=== PATIENT | female | born 1940 | race Caucasian/White ===

== ENCOUNTER 2024-11-19 17:00 | Inpatient (IN) | payer MEDICARE, MEDICAID ==
[~2024-11-19] VITALS: Ht 154.9 cm; Wt 66.0 kg
[~2024-11-19 17:00] MED LIST: ALEN35TA18 PO; AMLO1TAB22 PO; AMOX875T4 PO; CETI-120 PO; DULO-141 PO; HYDR-4798 PO; LIS10T PO; MONT-8 PO; NOR10T GT; OXYB5TAB14 PO; PANT-62 PO; PRAV20TA3 PO; SIMV20TA20 PO; TRIA37.561 PO
--- NOTE | 2024-11-19 17:16 | ED.PDOC ---
HPI Comments 84-year-old female presents here with a pressure-like discomfort. Positive nausea. She states that she was just at the pain management physicians often as for her right wrist and had gotten a cortisone shot. She states she has a little chest pain at that time but when she left the pain got worse. She reports 9/10 chest pain right now. No history of similar type of pain in the past. She does have a history of mitral valve prolapse but states it does not normally cause her discomfort. Denies any radiation to the arm or jaw. Patient has a nonsmoker. History of hypertension. Chief Complaint: Chest Pain Time Seen by MD: 17:10 Primary Care Provider: ALESIA Reviewed Notes: Medications, Allergies Allergies: Coded Allergies: Lisinopril (Verified Allergy, Severe, 06/18/11) Valsartan (Verified Allergy, Severe, 06/18/11) Clonidine (Verified Allergy, 04/16/13) Losartan (Verified Allergy, 04/16/13) Home Meds Reported Medications Simvastatin (Simvastatin) 20 Mg Tab, 20 MG PO DAILY, TAB 04/17/13 Hydrocodone-Acetaminophen ([place] 10/325MG) 1 Tab Tb, 1 TAB GT Q4HP PRN for PRN 04/17/13 Lisinopril (ZESTRIL TABLET) 10 Mg Tb, 10 MG PO DAILY 04/17/13 Hydrochlorothiazide W/Triamter (Dyazide) 1 Cap Cap, 1 CAP PO DAILY, CAP 04/17/13 Information Source: Patient Mode of Arrival: Ambulatory Severity: Moderate Duration: Since onset Prehospital treatment: None Location: Chest (L) Radiation: No Radiation Quality: Pressure Onset: At Rest Cardiac Risk Factors: Hyperlipidemia, HTN PE Risk Factors: None History of: None Modifying Factors: Nothing Associated Signs and Symptoms: N/V Past Medical History PAST MEDICAL HISTORY: Asthma, High Lipids, HTN Surgical History: Appendectomy, Hysterectomy MOLDER History: No Pertinent MOLDER History Family History Family History: No family hx of Heart heron, No family hx of HTN Social History Smoker: Non-Smoker Alcohol: Denies ETOH Use Drugs: Denies Drug Use Lives In: Home Constitutional: denies: chills, diaphoresis, fatigue, fever, malaise, sweats, weakness, others EENTM: denies: blurred vision, double vision, ear bleeding, ear discharge, ear drainage, ear pain, ear ringing, eye pain, eye redness, hearing loss, mouth pain, mouth swelling, nasal discharge, nose bleeding, nose congestion, nose pain, photophobia, tearing, throat pain, throat swelling, voice changes, others Respiratory: denies: cough, hemoptysis, orthopnea, SOB at rest, shortness of breath, SOB with excertion, stridor, wheezing, others Cardiovascular: reports: chest pain; denies: dizzy spells, diaphoresis, Dyspnea on exertion, edema, irregular heart beat, left arm pain, lightheadedness, p alpitations, PND, syncope, others Gastrointestinal: reports: nausea; denies: abdomen distended, abdominal pain, blood streaked bowels, constipated, diarrhea, dysphagia, difficulty swallowing, hematemesis, melena, poor appetite, poor fluid intake, rectal bleeding, rectal pain, vomiting, others Genitourinary: denies: abnormal vagina bleeding, burning, dyspareunia, dysuria, flank pain, frequency, hematuria, incontinence, pain, , vagina di scharge, urgency, others Neurological: denies: dizziness, fainting, headache, left sided numbness, left sided weakness, numbness, paresthesia, pre-existing deficit, right sided numbness, right sided weakness, seizure, speech problems, tingling, tremors, weakness, others Musculoskeletal: denies: back pain, gout, joint pain, joint swelling, muscle pain, muscle stiffness, neck pain, others Integumetry: denies: bruises, change in color, change in hair/nails, dryness, laceration, lesions, lumps, rash, wounds, others Allergic/Immunocompromised: denies: Difficulty Healing, Frequent Infections, Hives, Itching, others Hematologic/Lymphatic: denies: anemia, blood clots, easy bleeding, easy bruising, swollen glands, others Endocrine: denies: excessive hunger, excessive sweating, excessive thirst, excessive urination, flushing, intolerance to cold, intolerance to heat, unexplained weight gain, unexplained weight loss, others Psychiatric: denies: anxiety, bipolar disorder, depression, hopeless, panic disorder, schizophrenia, sleepless, suicidal, others All Other Systems: Reviewed and Negative Physical Exam General Appearance: Moderate Distress HEENT: Normal ENT Inspection, Pharynx Normal, TMs Normal Neck: Full Range of Motion, Non-Tender, Normal, Normal Inspection Respiratory: Chest Non-Tender, Lungs Clear, No Accessory Muscle Use, No Respiratory Distress, Normal Breath Sounds Cardiovascular: No Edema, No JVD, No Murmur, No Gallop, Normal Peripheral Pulses, Regular Rate/Rhythm Breast Exam: Deferred Gastrointestinal: No Organomegaly, Non Tender, No Pulsatile Mass, Normal Bowel Sounds, Soft Genitalia: Deferred Pelvic: Deferred Rectal: Deferred Extremities: No calf tenderness, Normal capillary refill, Normal inspection, Normal range of motion, Non-tender, No pedal edema Musculoskeletal : Apperance: Normal Neurologic: Alert, home care giver II-XII nml as Tested, No Motor Deficits, Normal Affect, Normal Mood, No Sensory Deficits Cerebellar Function: Normal Reflexes: Normal Skin: Dry, Normal Color, Warm Lymphatic: No Adenopathy EKG EKG : Comments Sinus bradycardia rate of 46, ST depressions in V 5 V6 Was a procedure done? Was a procedure done?: No CP Differential Dx Differential Diagnosis: Other Differential Diagnosis: Other Differential Diagnosis: Angina, Aortic dissection, Chest Wall Pain, Cholelithiasis, Myocardial Infarction, Pericarditis, Pneumonia, Pneumothorax, Pulmonary Embolus X-Ray, Labs, Meds, VS Vital Signs Date Time Temp Pulse Resp B/P (MAP) Pulse Ox O2 Delivery O2 Flow Rate FiO2 11/19/24 17:12 46 11/19/24 17:09 98.1 50 16 145/57 95 98.1 Lab Test 11/19/24 17:03 Range/Units White Blood Count Pending Red Blood Count Pending Hemoglobin Pending Hematocrit Pending Mean Corpuscular Volume Pending Mean Corpuscular Hemoglobin Pending Mean Corpuscular Hemoglobin Concent Pending Red Cell Distribution Width Pending Platelet Count Pending Mean Platelet Volume Pending Neutrophils (%) (Auto) Pending Lymphocytes (%) (Auto) Pending Monocytes (%) (Auto) Pending Basophils (%) (Auto) Pending Neutrophils # (Auto) Pending Lymphocytes # (Auto) Pending Monocytes # (Auto) Pending Sodium Level 141 136-145 mmol/L Potassium Level 3.3 L 3.5-5.1 mmol/L Chloride Level 103 98-107 mmol/L Carbon Dioxide Level 26 20-31 mmol/L Anion Gap 12 5-15 Blood Urea Nitrogen 28 H 9-23 mg/dL Creatinine 1.37 H 0.550-1.02 mg/dL Glomerular Filtration Rate Calc 39 >90 mL/min BUN/Creatinine Ratio 20.4 H 10.0-20.0 Serum Glucose 97 74-106 mg/dL Calcium Level 9.6 8.7-10.4 mg/dL Troponin I High Sensitivity 22 </=34 ng/L [facility] [id number] [place] [address] Ph: [phone] DIAGNOSTIC IMAGING Diagnostic Imaging Report : [id number] Signed PATIENT: RAY ASIFCCT: [id number] UNIT: [id number] : 1940 LOC: ER ROOM / BED: / AGE / SEX: 84 / F ADM STATUS: REG ER SERVICE 08 ORDERING PHYSICIAN: JOSEPH ARCOS MD PROCEDURE(s): CXR2 - CHEST TWO VIEWS ROUTINE REASON: Chest pain ORDER NUMBER(s): [id number], ACCESSION NUMBER(s): [id number] CHEST RADIOGRAPH Indication: Chest pain Technique: Frontal and lateral view of the chest was obtained Comparison: None FINDINGS: Lines and Tubes: None Lungs: Clear Pleura: No effusion. No pneumothorax. Cardiomediastinal contours: Unremarkable Bones: Unremarkable IMPRESSION: 1. No evidence of acute disease. ATED BY: NADIA DUBOSE MD DICTATED DATE/TIME: 11/19/241740 SIGNED BY: NADIA DUBOSE MD SIGNED DATE/TIME: 11/19/241740 82-year-old female presents here with chest discomfort that she reports it is pressure-like. She states she had just left the pain management physician's office and although she had did have some pain while at the office, the pain became much worse after she left. Did not declines any similar type of pain. At this time. At this time she appears to be in some distress stating that it is 9/10 pain. I am concerned about acute coronary syndrome. EKG demonstrates some mild ST depressions in the lateral leads. At this time I have ordered a CBC BMP troponin chest x-ray. Patient has been written for aspirin morphine and Zofran IV. At this time she has a high heart score of 6. First set troponin has returned normal. but I am still very concerned, and believe she would benefit from inpatient admission. BMP has returned with evidence of acute kidney injury. Hospitalist team has been contacted. Time of 1ST Reevaluation: 17:40 Reevaluation 1ST: Unchanged Patient Education/Counseling: Diagnosis, Treatment Family Education/Counseling: No Family Present SEPSIS Sepsis Screen Physician Orders Electrocardigram (11/19/24 17:01) Electrocardigram (11/19/24 18:01) Electrocardigram (11/19/24 20:01) Troponin-I Hs (11/19/24 18:01) Troponin-I Hs (11/19/24 20:01) Complete Blood Count (11/19/24 17:09) Chest Two Views Routine (11/19/24 17:09) Nitroglycerin Sublingual (Ntrostat Subli (11/20/24 10:00) Morphine Sulfate Injection (11/19/24 17:30) Vital Signs Date Time Temp Pulse Resp B/P (MAP) Pulse Ox O2 Delivery O2 Flow Rate FiO2 11/19/24 17:12 46 11/19/24 17:09 98.1 50 16 145/57 95 98.1 Laboratory Tests Test 11/19/24 17:03 White Blood Count Pending Departure 1 Departure Time of Disposition: 17:31 Impression: Primary Impression: Chest pain Qualified Codes: R07.9 - Chest pain, unspecified Additional Impression: Acute kidney injury Disposition: ADMITTED INPATIENT Condition: Serious Critical Care Note Critical Care Time?: No Stability Stability form required: No Heart Score Heart Score: Heart Score Response (Comments) Value History Highly Suspicious 2 EKG Repolarization Disturb 1 Age >65 2 Risk Factors 1 or 2 risk factors 1 Troponin Normal limit 0 Total 6 I personally scribed for JOSEPH ARCOS MD ([email or web address]) on 11/19/24 at 17:16. Electronically submitted by Love Malcolm ([email or web address]). I personally scribed for JOSEPH ARCOS MD ([email or web address]) on 11/19/24 at 17:47. Electronically submitted by Love Malcolm ([email or web address]). JOSEPH ARCOS MD Nov 19, 2024 17:16
[2024-11-19 17:24] LABS: Chloride 103 mmol/L (98-107); Sodium 141 mmol/L (136-145)
[2024-11-19 17:25] LABS: Anion Gap 12 (5-15); Carbon Dioxide 26 mmol/L (20-31)
[2024-11-19 17:26] LABS: Calcium 9.6 mg/dL (8.7-10.4)
[2024-11-19 17:27] LABS: Potassium 3.3 mmol/L (3.5-5.1)
[2024-11-19 17:30] LABS: BUN/Creatinine Ratio 20.4 (10.0-20.0); Glucose 97 mg/dL (74-106)
[2024-11-19] MEDS: ONDANSETRON HCL 4 MG/2 ML VIAL IV ONE (17:30)
[2024-11-19 17:34] LABS: Blood Urea Nitrogen 28 mg/dL (9-23)
--- NOTE | 2024-11-19 17:43 | DVH ---
CHEST RADIOGRAPH Indication: Chest pain Technique: Frontal and lateral view of the chest was obtained Comparison: None FINDINGS: Lines and Tubes: None Lungs: Clear Pleura: No effusion. No pneumothorax. Cardiomediastinal contours: Unremarkable Bones: Unremarkable IMPRESSION: 1. No evidence of acute disease.
[2024-11-19 17:54] LABS: Hematocrit 38.1 % (36.0-46.0); Hemoglobin 12.9 g/dL (12.2-16.2); Mean Corpuscular Hemoglobin 29.9 pg (28.0-32.0); Mean Corpuscular Volume 87.8 fL (80.0-100.0); Nucleated Red Blood Cells % 0.0 %
--- NOTE | 2024-11-19 18:18 | ECG ---
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
[2024-11-19 18:55] VITALS: PULSE 59; RESP 13; O2SAT 99
[2024-11-19 19:55] VITALS: RESP 18; O2SAT 99
[2024-11-19] MEDS: ONDANSETRON HCL 4 MG/2 ML VIAL IV PRN (20:23)
[2024-11-19] MEDS: MORPHINE SULFATE INJ 2 MG/ml SYRG IV PRN (20:23)
--- NOTE | 2024-11-19 20:44 | ECG ---
[facility] Test Date: 2024-11-19 Test Time: 19:56:40 Pat Name: CHRISTY ASIF Department: Room: 0277T Gender: F Parish Nurse: GRISEL : 1940 Requested By: EMERGENCY EMERGENCY Order Number: [id number] Reading MD: Rober Hudson Measurements Intervals [place] Rate: 61 P: 74 GA: 164 QRS: 37 QRSD: 116 T: 55 QT: 457 QTc: 461 Interpretive Statements Sinus rhythm Ventricular premature complex Nonspecific intraventricular conduction delay Anterior infarct, old Electronically Signed On 11-22-2024 18:49:13 PDT by Rober Hudson Please click the below link to view image of tracing.
[2024-11-19] MEDS ORDERED: NITROGLYCERIN 0.4 MG SL TAB SL PRN (22:30)
[2024-11-19] MEDS ORDERED: hydrALAZINE HCL 20 MG/ML VL IV PRN (22:30)
--- NOTE | 2024-11-19 22:33 | DVHHP2 ---
History of Present Illness Reason for Visit: Chest pain, unspecified History of Present Illness The patient is a 84-year-old female with past medical history of asthma, hyperlipidemia, and hypertension who presented to [facility] ED with complaint of chest pain. Patient reports symptoms progressively get worse with substernal chest pain, rating pain 9/10 numeric scale, associated with nausea. She states that she was just at the pain management physicians often as for her right wrist and had gotten a cortisone shot. Patient was seen and evaluated in the ED, laboratory data shows WBC 7.5, platelets 229, sodium 141, potassium 3.3, BUN 28, creatinine 1.37, glucose 97, calcium 9.6, troponin 1279, blood pressure 156/72, heart rate 62, temperature 98.9 F, O2 saturation 99% on room air. Chest x-ray show no evidence of acute disease. Please see medication orders section in the computer. On my assessment, patient denied chest pain at this moment, no headache, no dizziness, no diaphoresis, no shortness of breaths, no nausea, no vomiting, no fever, no chills. Patient was admitted for further evaluation and medical management. Past Medical History Asthma, High Lipids, HTN Past Surgical History Appendectomy, Hysterectomy Family History Reviewed, noncontributory to the management of this case. Past Social History The patient lives at home, denies smoking, alcohol or illicit drugs abuse. Review of Systems Constitutional: Yes: Weakness; No: Fever, Chills, Sweats, Malaise, Other Eyes: No: Pain, Vision change, Conjunctivae inflammation, Eyelid inflammation, Other, Redness ENT: No: Ear pain, Ear discharge, Nose pain, Nose discharge, Nose congestion, Mouth pain, Mouth swelling, Throat pain, Throat swelling, Other Respiratory: No: Cough, Dry, Shortness of breath, SOB with excertion, Wheezing, Hemoptysis, Pleuritic Pain, Sputum, Wheezing, Other Cardiovascular: Chest Pain; No: Palpitations, Orthopnea, Paroxysmal Noc. Dyspnea, Edema, Lt Headedness, Other Gastrointestinal: Nausea; No: Vomiting, Abdominal Pain, Diarrhea, Constipation, Melena, Hematochezia, Other Genitourinary: No Dysuria, No Frequency, No Incontinence, No Hematuria, No Retention, No Other Musculoskeletal: No: other, neck pain, shoulder pain, arm pain, back pain, hand pain, leg pain, foot pain Skin: No: Rash, Lesions, Jaundice, Bruising, Other Neurological: No: Weakness, Numbness, Incoordination, Change in speech, Confusion, Seizures, Other Allergies: Coded Allergies: Lisinopril (Verified Allergy, Severe, 06/18/11) Valsartan (Verified Allergy, Severe, 06/18/11) Clonidine (Verified Allergy, 04/16/13) Losartan (Verified Allergy, 04/16/13) Medications Current Medications Medications Dose Ordered Sig/Aparna Route Start Time Stop Time Status Last Admin Dose Admin Morphine Sulfate 2 mg Q4HPRN PRN IV 11/19/24 17:30 Morphine Sulfate 2 mg Q30MIN PRN IV 11/19/24 20:15 11/19/24 20:23 2 MG Ondansetron HCl 4 mg Q6HP PRN IV 11/19/24 20:15 11/19/24 20:23 4 MG Atorvastatin Calcium 20 mg HS PO 11/20/24 22:00 UNV Amlodipine Besylate 5 mg DAILY PO 11/20/24 10:00 UNV Hydralazine HCl 10 mg Q6HP PRN IV 11/19/24 22:30 UNV Aspirin 81 mg DAILY PO 11/20/24 10:00 UNV Sodium Chloride 10 ml Q8HR IV 11/20/24 06:00 UNV Acetaminophen/ Hydrocodone Bitart 1 tab Q4HP PRN PO 11/19/24 22:30 UNV Docusate Sodium 100 mg BIDPRN PRN PO 11/19/24 22:30 UNV Acetaminophen 650 mg Q6HP PRN PO 11/19/24 22:30 UNV Nitroglycerin 0.4 mg Q5MINP PRN SL 11/19/24 22:30 UNV Exam Vital Signs Vital Signs Date Time Temp Pulse Resp B/P (MAP) Pulse Ox O2 Delivery O2 Flow Rate FiO2 11/19/24 22:24 111 18 136/98 11/19/24 18:55 99 Room Air* 0 21 11/19/24 18:55 98.9 98.9 General Appearance: Alert, Oriented X3, Cooperative, No acute distress HEENT: Atraumatic, PERRLA, EOMI, Mucous membr. moist/pink Respiratory: Normal air movement Cardiovascular: Regular rate, Normal S1, Normal S2, No murmurs Abdominal: Normal bowel sounds, Soft, No tenderness, No hepatospenomegaly, No masses Extremities: No clubbing, No cyanosis, No edema, Normal pulses, No tenderness/swelling Skin: No rashes, No significant lesion Neuro: Normal speech, Normal tone, Sensation intact, Cranial nerves 3-12 NL, Reflexes 2+, Other (Generalized weakness) Psych/Mental Status: Mental status NL, Mood NL Labs/Xrays Labs Test 11/19/24 19:49 11/19/24 17:03 Range/Units Troponin I High Sensitivity 1279 *H </=34 ng/L White Blood Count 7.5 4.4-10.8 10^3/uL Red Blood Count 4.33 4.0-5.20 10^6/uL Hemoglobin 12.9 12.2-16.2 g/dL Hematocrit 38.1 36.0-46.0 % Mean Corpuscular Volume 87.8 80.0-100.0 fL Mean Corpuscular Hemoglobin 29.9 28.0-32.0 pg Mean Corpuscular Hemoglobin Concent 34.0 32.0-36.0 g/dL Red Cell Distribution Width 13.0 11.8-14.3 % Platelet Count 229 140-450 10^3/uL Mean Platelet Volume 7.7 6.9-10.8 fL Neutrophils (%) (Auto) 46.9 37.0-80.0 % Lymphocytes (%) (Auto) 42.2 10.0-50.0 % Monocytes (%) (Auto) 7.7 0.0-12.0 % Eosinophils (%) (Auto) 2.8 0.0-7.0 % Basophils (%) (Auto) 0.4 0.0-2.0 % Neutrophils # (Auto) 3.5 1.6-8.6 10 ^3/uL Lymphocytes # (Auto) 3.2 0.4-5.4 10 ^3/uL Monocytes # (Auto) 0.6 0-1.3 10 ^3/uL Eosinophils # (Auto) 0.2 0-0.8 10 ^3/uL Basophils # (Auto) 0 0-0.2 10 ^3/uL Nucleated Red Blood Cells 0.0 % Sodium Level 141 136-145 mmol/L Potassium Level 3.3 L 3.5-5.1 mmol/L Chloride Level 103 98-107 mmol/L Carbon Dioxide Level 26 20-31 mmol/L Anion Gap 12 5-15 Blood Urea Nitrogen 28 H 9-23 mg/dL Creatinine 1.37 H 0.550-1.02 mg/dL Glomerular Filtration Rate Calc 39 >90 mL/min BUN/Creatinine Ratio 20.4 H 10.0-20.0 Serum Glucose 97 74-106 mg/dL Calcium Level 9.6 8.7-10.4 mg/dL PATIENT: RAY ASIFCCT: [id number] UNIT: [id number] : 1940 LOC: ER ROOM / BED: / AGE / SEX: 84 / F ADM STATUS: REG ER SERVICE 08 ORDERING PHYSICIAN: JOSEPH ARCOS MD PROCEDURE(s): CXR2 - CHEST TWO VIEWS ROUTINE REASON: Chest pain ORDER NUMBER(s): [id number], ACCESSION NUMBER(s): [id number] CHEST RADIOGRAPH Indication: Chest pain Technique: Frontal and lateral view of the chest was obtained Comparison: None FINDINGS: Lines and Tubes: None Lungs: Clear Pleura: No effusion. No pneumothorax. Cardiomediastinal contours: Unremarkable Bones: Unremarkable IMPRESSION: 1. No evidence of acute disease. SEPSIS Sepsis Screen Date sepsis recognized/suspect: Nov 19, 2024 Time Sepsis recognized/suspect: 1854 Recent Procedure: No On Antibiotic Therapy: No Respiratory Rate >20: No Heart Rate >90: No Temp<36 C (96.8 F) or >38.3 C: No SBP <90 or MAP <65 mmHG: No New Acute Mental Status Change: No Is the patient on CPAP, BIPAP,: No Physician Orders Electrocardigram (11/19/24 20:01) Chest Two Views Routine (11/19/24 17:09) Nitroglycerin Sublingual (Ntrostat Subli (11/20/24 10:00) Morphine Sulfate Injection (11/19/24 17:30) Morphine Sulfate Injection (11/19/24 20:15) Ondansetron Hcl (Zofran) (11/19/24 20:15) Atorvastatin (Lipitor) (11/20/24 22:00) Amlodipine Tablet (Norvasc Tablet) (11/20/24 10:00) Hydralazine Injection (Apresoline Inject (11/19/24 22:30) Aspirin Tablet (11/20/24 10:00) Admit (11/19/24:) Allergies (11/19/24:) Code Status (11/19/24:) Sodium Chloride Lock (Saline Lock Ns) (11/20/24 06:00) Oxygen Per Hour (11/19/24:) Hydrocodone-Acet 5/325mg Tab ([place] 5/32 (11/19/24 22:30) Docusate Sodium Capsule (Colace Capsule) (11/19/24 22:30) Fall Risk Precautions In Place QSHIFT (11/19/24:) Complete Blood Count (11/20/24 04:00) Comprehensive Metabolic Panel (11/20/24 04:00) Cardiac Diet-2gna,Lofat,Lochol (11/20/24 Breakfast) Condition: Serious (11/19/24:) Acetaminophen Tablet (Tylenol Tablet) (11/19/24 22:30) Maintain Bed Rest (11/19/24:) Sequential Compression Device (11/19/24 ) Nitroglycerin Sublingual (Ntrostat Subli (11/19/24:30) Stat Ekg For Chest Pain (11/19/24:) Notify Of Changes From Base (11/19/24:) Syrup Machine Laborer For 24 Hours (11/19/24:) Emergency Dysrhythmia Protocol (11/19/24:) Rhythm Strips Once Every Shift (11/19/24:) Oxygen By Nasal Cannula (11/19/24:) Vital Signs Date Time Temp Pulse Resp B/P (MAP) Pulse Ox O2 Delivery O2 Flow Rate FiO2 11/19/24 22:24 111 18 136/98 11/19/24 20:23 62 18 156/72 11/19/24 20:10 59 11/19/24 19:56 61 11/19/24 18:55 59 13 99 Room Air* 0 21 11/19/24 18:55 98.9 59 13 146/56 (86) 99 98.9 11/19/24 18:20 53 11/19/24 17:12 46 11/19/24 17:09 98.1 50 16 145/57 95 98.1 Laboratory Tests Test 11/19/24 17:03 White Blood Count 7.5 10^3/uL (4.4-10.8) Medications Medications Dose Ordered Sig/Aparna Route Start Time Stop Time Status Last Admin Dose Admin Aspirin 162 mg ONCE ONCE PO 11/19/24 17:15 11/19/24 17:16 DC 11/19/24 18:30 162 MG Morphine Sulfate 2 mg Q30MIN PRN IV 11/19/24 20:15 11/19/24 20:23 2 MG Ondansetron HCl 4 mg ONCE ONCE IV 11/19/24 17:30 11/19/24 17:31 DC 11/19/24 17:30 4 MG Ondansetron HCl 4 mg Q6HP PRN IV 11/19/24 20:15 11/19/24 20:23 4 MG Assessment/Plan Assessment/Plan Chest pain, unspecified Hypokalemia Chest pain Generalized weakness Acute kidney injury NSTEMI non ST elevated myocardial infarction Plan 1. Admit to telemetry unit 2. Breathing treatment 3. Pain control management 4. Management of fluids and electrolytes 5. Consultation for Cardiology 6. Diagnostic tests chest x-ray 7. DVT prophylaxis-on aspirin 8. Repeat labs CBC, CMP in a.m. 9. Continue with current medical management 10. Treatment plan discussed with patient and RN. Patient verbalized understanding. Plan discussed with: Patient, Other (RN) My Orders Orders - FIDELIA QUINTANILLA DNP Procedure Category Date Status Time Atorvastatin (Lipitor) PHA 11/20/24 Logged 22:00 Amlodipine Tablet PHA 11/20/24 Logged (Norvasc Tablet) 10:00 Hydralazine Injection PHA 11/19/24 Logged (Apresoline Inject 22:30 Aspirin Tablet PHA 11/20/24 Logged 10:00 Admit ADMIT 11/19/24 Transmitted 22:25 Allergies JACIEL 11/19/24 In Process 22:25 Code Status CODE 11/19/24 Transmitted 22:25 Sodium Chloride Lock PHA 11/20/24 Logged (Saline Lock Ns) 06:00 Oxygen Per Hour RT 11/19/24 Transmitted 22:25 Hydrocodone-Acet PHA 11/19/24 Logged 5/325mg Tab ([place] 22:30 Docusate Sodium PHA 11/19/24 Logged Capsule (Colace 22:30 Fall Risk Precautions [facility] 11/19/[address] 22:25 Complete Blood Count LAB 11/20/24 Verified 04:00 Comprehensive LAB 11/20/24 Verified Metabolic Panel 04:00 Cardiac DIET 11/20/24 Transmitted Diet-2gna,Lofat,Lochol Breakfast Condition: Serious [facility] 11/19/24 In Process 22:25 Acetaminophen Tablet [facility] 11/19/24 Logged (Tylenol Tablet) 22:30 Maintain Bed Rest [facility] 11/19/24 In Process 22:25 Sequential [facility] 11/19/24 In Process Compression Device Nitroglycerin [facility] 11/19/24 Logged Sublingual (Ntrostat 22:30 Stat Ekg For Chest [facility] 11/19/24 In Process Pain 22:25 Notify Of Changes [facility] 11/19/24 In Process From Base 22:25 Syrup Machine Laborer For [facility] 11/19/24 In Process 24 Hours 22:25 Emergency Dysrhythmia [facility] 11/19/24 In Process Protocol 22:25 Rhythm Strips Once [facility] 11/19/24 In Process Every Shift 22:25 Oxygen By Nasal RT 11/19/24 Transmitted Cannula 22:25 Problem List: (1) Chest pain, unspecified (2) Hypokalemia (3) Chest pain (4) Generalized weakness (5) Acute kidney injury (6) NSTEMI (non-ST elevated myocardial infarction) Date of Service: Nov 19, 2024 Billing Provider: FIDELIA QUINTANILLA DNP Common Visit Codes: 29358-[id number] INP/OBS CARE (HIGH) FIDELIA QUINTANILLA DNP Nov 19, 2024 22:33
[2024-11-20] VITALS (9 sets, daily range): BP systolic 112–152; BP diastolic 55–70; PULSE 52–67; RESP 16–18; TEMP 96.6–98.1; O2SAT 93–97
[2024-11-20] MEDS: POTASSIUM CHL 20 Meq TABLET PO ONE (00:12)
[2024-11-20] MEDS: HYDROcodone-ACET 5/325MG TAB PO PRN (00:38)
[2024-11-20 03:46] LABS: Hematocrit 39.4 % (36.0-46.0); Hemoglobin 13.5 g/dL (12.2-16.2); Mean Corpuscular Hemoglobin 29.6 pg (28.0-32.0); Mean Corpuscular Volume 86.8 fL (80.0-100.0); Nucleated Red Blood Cells % 0.0 %
[2024-11-20 04:06] LABS: Alanine Aminotransferase 16 U/L (7-40); Albumin 4.8 g/dL (3.2-4.8); Alkaline Phosphatase 87 U/L (46-116); Anion Gap 12 (5-15); BUN/Creatinine Ratio 18.5 (10.0-20.0); Bilirubin, Total 0.7 mg/dL (0.2-1.0); Calcium 9.4 mg/dL (8.7-10.4); Carbon Dioxide 25 mmol/L (20-31); Chloride 102 mmol/L (98-107); Potassium 4.3 mmol/L (3.5-5.1); Sodium 139 mmol/L (136-145); Total Protein 7.3 g/dL (5.7-8.2)
[2024-11-20 04:07] LABS: Blood Urea Nitrogen 25 mg/dL (9-23); Glucose 130 mg/dL (74-106)
[2024-11-20] MEDS: SODIUM CHLOR 0.9% PF (SALINE LOCK) 10ML VIAL/SYR IV SCH (05:40)
[2024-11-20] MEDS: MORPHINE SULFATE 4 MG/ML SYR/VIAL IV PRN (05:40)
[2024-11-20] MEDS ORDERED: SODIUM CHLORIDE 0.9% 1,000 ML IV SCH (08:30)
--- NOTE | 2024-11-20 09:05 | CONS ---
Pharmacy Clinical Information: NEW HEPARIN DRIP BASELINE PTT ACTIVE BOLUS 4000 UNITS X 1 INITIAL RATE 700 UNITS/HR (7 ML/HR) NEXT SCHEDULED PTT 11/20 @1500 COMMUNICATED WITH RN CLAUDIA SPENCER PHARMACIST Nov 20, 2024 09:05
--- NOTE | 2024-11-20 09:33 | DVHINCON2 ---
Date of service: Nov 20, 2024 History of Present Illness HPI Patient is a 84-year-old female who presented to the hospital with chest discomfort. She mentions that she was at the pain management and when driving back home started to feel chest discomfort. Later she decided to come to the hospital. Cardiology is involved for cardiac aspects of care. Patient is known to our practice from outside. Home Meds Reported Medications Simvastatin (Simvastatin) 20 Mg Tab, 20 MG PO DAILY, TAB 04/17/13 Hydrocodone-Acetaminophen ([place] 10/325MG) 1 Tab Tb, 1 TAB GT Q4HP PRN for PRN 04/17/13 Lisinopril (ZESTRIL TABLET) 10 Mg Tb, 10 MG PO DAILY 04/17/13 Hydrochlorothiazide W/Triamter (Dyazide) 1 Cap Cap, 1 CAP PO DAILY, CAP 04/17/13 Past Medical History Others Past medical history includes hypertension, hyperlipidemia, asthma, neuropathy, history of mild mitral valve prolapse, CKD, status post right hip replacement and history of lumbar stenosis. Drugs: None Review of Systems Constitutional: No symptom reported Pulmonary/Respiratory: Dyspnea Cardiovascular: Chest Pain All Other Systems Fourteen point review of system was performed. Relevant findings as per above and as per HPI. Otherwise negative. H&P Exam Vital Signs Vital Signs Date Time Temp Pulse Resp B/P (MAP) Pulse Ox O2 Delivery O2 Flow Rate FiO2 11/20/24 06:22 78 16 134/77 11/20/24 04:56 97.9 97 97.9 11/20/24 02:17 Room Air* 0 21 Labs/Xrays Labs Test 11/20/24 02:48 Range/Units White Blood Count 7.3 4.4-10.8 10^3/uL Red Blood Count 4.54 4.0-5.20 10^6/uL Hemoglobin 13.5 12.2-16.2 g/dL Hematocrit 39.4 36.0-46.0 % Mean Corpuscular Volume 86.8 80.0-100.0 fL Mean Corpuscular Hemoglobin 29.6 28.0-32.0 pg Mean Corpuscular Hemoglobin Concent 34.2 32.0-36.0 g/dL Red Cell Distribution Width 13.0 11.8-14.3 % Platelet Count 213 140-450 10^3/uL Mean Platelet Volume 7.9 6.9-10.8 fL Neutrophils (%) (Auto) 83.3 H 37.0-80.0 % Lymphocytes (%) (Auto) 14.1 10.0-50.0 % Monocytes (%) (Auto) 2.4 0.0-12.0 % Eosinophils (%) (Auto) 0.0 0.0-7.0 % Basophils (%) (Auto) 0.2 0.0-2.0 % Neutrophils # (Auto) 6.1 1.6-8.6 10 ^3/uL Lymphocytes # (Auto) 1.0 0.4-5.4 10 ^3/uL Monocytes # (Auto) 0.2 0-1.3 10 ^3/uL Eosinophils # (Auto) 0 0-0.8 10 ^3/uL Basophils # (Auto) 0 0-0.2 10 ^3/uL Nucleated Red Blood Cells 0.0 % Sodium Level 139 136-145 mmol/L Potassium Level 4.3 3.5-5.1 mmol/L Chloride Level 102 98-107 mmol/L Carbon Dioxide Level 25 20-31 mmol/L Anion Gap 12 5-15 Blood Urea Nitrogen 25 H 9-23 mg/dL Creatinine 1.35 H 0.550-1.02 mg/dL Glomerular Filtration Rate Calc 39 >90 mL/min BUN/Creatinine Ratio 18.5 10.0-20.0 Serum Glucose 130 H 74-106 mg/dL Calcium Level 9.4 8.7-10.4 mg/dL Total Bilirubin 0.7 0.2-1.0 mg/dL Aspartate Amino Transferase (AST) 25 13-40 U/L Alanine Aminotransferase (ALT) 16 7-40 U/L Alkaline Phosphatase 87 46-116 U/L Troponin I High Sensitivity 2931 *H </=34 ng/L Total Protein 7.3 5.7-8.2 g/dL Albumin 4.8 3.2-4.8 g/dL Assessment/Plan Plan Patient is a 84-year-old female who presented to the hospital with chest discomfort. She mentions that she was at the pain management and when driving back home started to feel chest discomfort. Later she decided to come to the hospital. Cardiology is involved for cardiac aspects of care. Patient is known to our practice from outside. Not in acute distress. No JVD. Mucosa is pink and wet. No carotid bruit. Scattered rhonchi in the lungs is heard. Not using accessory muscles of breathing. Cardiac: Regular, no thrill/gallop. Abdomen is soft. Bowel sound is positive. No tenderness. Extremities do not reveal edema. Dorsalis pedis 2+ bilateral Past medical history includes hypertension, hyperlipidemia, asthma, neuropathy, history of mild mitral valve prolapse, CKD, status post right hip replacement and history of lumbar stenosis. Nuclear stress test (performed in the office) in February 2024 revealed scar. Echocardiogram (performed in the office) of December 2023 had revealed preserved ejection fraction with questionable mild mitral valve prolapse and [id number] mitral regurgitation Creatinine: 1.37 - 1.35 Potassium: 3.3 - 4.3 Troponin (high sensitive): 22 - 23- 6376 - 0038 - 8976 - 4484 Chest x-ray revealed: IMPRESSION: 1. No evidence of acute disease. EKG revealed sinus rhythm with old anterior NV Patient is a 84-year-old female who presented with chest discomfort. Troponin has been increasing. Diagnosis and non-STEMI. Chest pain Non-STEMI Hypertension Hyperlipidemia CKD Cardiac suggestion for management: Managed on telemetry Follow-up electrolytes and kidney function tests and correct abnormalities Load with 324 mg of aspirin. Continue with 81 mg daily Heparin drip Lipitor Echocardiogram Cardiac catheterization was offered to the patient. If clinically stable we will proceed with cardiac catheterization early next week. May change the ti amisha of the cardiac catheterization pertaining to clinical course Thank you for consultation Further evaluation and management depends on the above and clinical course A total of 75 minutes was spent reviewing the patient record, examining the patient, making a diagnostic and therapeutic plan, discussing this plan with medical personnel, following up on diagnostic studies and following the patient for clinical stability excluding any and all procedures. At least 50% of this time was spent in direct, [id number] contact. Thank you for allowing me to participate in this patient's care. Further recommendations will depend on patient's clinical course. Please do not hesitate to contact me if you have any questions or concerns. This medical document was created using electronic medical record system with [email or web address] dictation system. Although this document has been carefully reviewed, there may still be some phonetic and typographical errors. These areas are purely typographical due to the imperfection of the software programs, and do not reflect any compromise in the patient's medical care. Plan discussed with: Patient, Other (nurse) GAMA FERRO MD Nov 20, 2024 09:33
[2024-11-20] MEDS: NITROGLYCERIN 0.4 MG SL TAB SL ONE (09:37)
[2024-11-20] MEDS: PANTOPRAZOLE 40 MG/10 ML VIAL INJ IV SCH (09:42)
[2024-11-20] MEDS: HEPARIN SODIUM (PORCINE) 5000 UNITS/ML 1ML VIAL IV ONE (09:43)
[2024-11-20] MEDS: SODIUM CHLORIDE 0.9% 1,000 ML IV SCH (09:44)
[2024-11-20] MEDS: ATORVASTATIN 20 MG TAB PO STA (11:04)
[2024-11-20] MEDS: HEPARIN DRIP/D5W 100UNITS/ML 250 ML IV SCH (11:06)
[2024-11-20 11:33] LABS: Triglycerides 38 mg/dL (< 150)
[2024-11-20 11:35] LABS: Cholesterol 196 mg/dL (< 200)
[2024-11-20 11:36] LABS: HDL Cholesterol 65 mg/dL (40-59)
[2024-11-20 11:43] LABS: INR 1.13 (0.9-1.15); Prothrombin Time 11.8 sec (9.3-11.8)
[2024-11-20 11:44] LABS: Partial Thromboplastin Time 138.6 SEC (24.5-34.5)
--- NOTE | 2024-11-20 12:36 | DVHPN2 ---
Changes from previous H/P or p: No Changes Eyes: No Pain, No Vision change, No Conjunctivae inflammation, No Eyelid inflammation, No Other, No Redness ENT: No Ear pain, No Ear discharge, No Nose pain, No Nose discharge, No Nose congestion, No Mouth pain, No Mouth swelling, No Throat pain, No Throat swelling, No Other Cardiovascular: Chest Pain; No Palpitations, No Orthopnea, No Paroxysmal Noc. Dyspnea, No Edema, No Lt Headedness, No Other Respiratory: No Cough, No Dry, No Shortness of breath, No SOB with excertion, No Wheezing, No Hemoptysis, No Pleuritic Pain, No Sputum, No Other Gastrointestinal: Nausea; No Vomiting, No Abdominal Pain, No Diarrhea, No Constipation, No Melena, No Hematochezia, No Other Genitourinary: No Dysuria, No Frequency, No Incontinence, No Hematuria, No Retention, No Other Musculoskeletal: No other, No neck pain, No shoulder pain, No arm pain, No back pain, No hand pain, No leg pain, No foot pain Skin: No Rash, No Lesions, No Jaundice, No Bruising, No Other Objective Vitals Vital Signs Date Time Temp Pulse Resp B/P (MAP) Pulse Ox O2 Delivery O2 Flow Rate FiO2 11/20/24 09:42 117/77 11/20/24 09:00 97.8 67 17 95 97.8 11/20/24 08:00 Room Air* 0 21 Intake/Output Intake and Output 11/20/24 07:00 Intake Total 100 ml Balance 100 ml Intake Oral 100 ml # Voids 1 Medications Current Medications Medications Dose Ordered Sig/Aparna Route Start Time Stop Time Status Last Admin Dose Admin Morphine Sulfate 2 mg Q4HPRN PRN IV 11/19/24 17:30 11/20/24 05:40 2 MG Morphine Sulfate 2 mg Q30MIN PRN IV 11/19/24 20:15 11/19/24 23:47 2 MG Ondansetron HCl 4 mg Q6HP PRN IV 11/19/24 20:15 11/20/24 09:44 4 MG Amlodipine Besylate 5 mg DAILY PO 11/20/24 10:00 11/20/24 09:42 5 MG Hydralazine HCl 10 mg Q6HP PRN IV 11/19/24 22:30 Aspirin 81 mg DAILY PO 11/20/24 10:00 Sodium Chloride 10 ml Q8HR IV 11/20/24 06:00 11/20/24 05:40 10 ML Acetaminophen/ Hydrocodone Bitart 1 tab Q4HP PRN PO 11/19/24 22:30 11/20/24 09:43 1 TAB Docusate Sodium 100 mg BIDPRN PRN PO 11/19/24 22:30 Acetaminophen 650 mg Q6HP PRN PO 11/19/24 22:30 Nitroglycerin 0.4 mg Q5MINP PRN SL 11/19/24 22:30 Heparin Sodium/ Dextrose 250 ml @ 7 mls/hr Q24H IV 11/20/24 08:30 11/20/24 11:06 7 MLS/HR Pantoprazole Sodium 40 mg DAILY IV 11/20/24 10:00 11/20/24 09:42 40 MG Sodium Chloride 1,000 ml @ 100 mls/hr Q10H IV 11/20/24 08:45 11/20/24 09:44 100 MLS/HR Atorvastatin Calcium 80 mg HS PO 11/20/24 22:00 Laboratory Results Laboratory Tests 11/20/24 02:48 Chemistry Test 11/19/24 17:03 11/20/24 02:48 Calcium Level 9.6 mg/dL (8.7-10.4) 9.4 mg/dL (8.7-10.4) Albumin 4.8 g/dL (3.2-4.8) Total Protein 7.3 g/dL (5.7-8.2) Coagulation Test 11/20/24 10:43 Prothrombin Time 11.8 sec (9.3-11.8) Prothrombin Time INR 1.13 (0.9-1.15) Activated Partial Thromboplast Time 138.6 SEC (24.5-34.5) *H Lipid panel Test 11/20/24 10:43 Cholesterol Level 196 mg/dL (< 200) HDL Cholesterol 65 mg/dL (40-59) H Triglycerides Level 38 mg/dL (< 150) LFT Test 11/20/24 02:48 Alanine Aminotransferase (ALT) 16 U/L (7-40) Alkaline Phosphatase 87 U/L (46-116) Aspartate Amino Transferase (AST) 25 U/L (13-40) Total Bilirubin 0.7 mg/dL (0.2-1.0) HgA1c, TSH Test 11/20/24 10:43 Hemoglobin A1c 5.7 % A1C (<5.7) Thyroid Stimulating Hormone (TSH) 0.71 uIU/mL (0.55-4.78) Labs and/or images reviewed: Labs reviewed by me, Image(s) reviewed by me Assessment/Plan Assessment/Plan Acute chest pain rule out coronary artery disease: Heparin drip treatment per ACS protocol Non ST-elevation [place] with troponin 2900: Dr. Le planning for cardiac catheterization Hypokalemia Generalized weakness GRAY PCP Dr. Denny Patient lives with her son Time Spent 70 minutes Advanced care planning time 20 minutes Patient is full code Plan discussed with: Patient Date of Service: Nov 20, 2024 Billing Provider: JOSEPH FREITAS MD Common Visit Codes: [id number] CARE 30-74 MIN JOSEPH FREITAS MD Nov 20, 2024 12:36
[2024-11-20 17:17] LABS: INR 1.05 (0.9-1.15); Partial Thromboplastin Time 57.7 SEC (24.5-34.5); Prothrombin Time 11.1 sec (9.3-11.8)
--- NOTE | 2024-11-20 18:11 | DVHSR ---
APPROVED REPORT EXAM: Two-dimensional and M-mode echocardiogram with Doppler and color Doppler. Blood Pressure: 134/77 mmHg INDICATION NSTEMI RISK FACTORS Height: 5'1", Weight: 132 DIMENSIONS LVDd4.0 (3.8-5.7cm)LA (2D)4.1 (1.9-4.0cm)Aortic Root3.5 (2.0-3.7cm) LVDs2.8 (2.5-4.0cm)LA (MM) (1.9-4.0cm)Aortic Cusp Exc1.9 (1.5-2.0cm) EF (%) 35.0 (55-70%)Rt. Atrium3.7 (1.9-4.0cm)Asc. Aorta cm IVSd1.1 (0.7-1.1cm)RV (D) (1.8-2.4cm) PWd1.0 (0.7-1.1cm) Mitral Valve MitralMitral Stenosis E wave0.84m/sMV Mean GR.mmHg A wave0.98m/sMV Peak GR.mmHg E/A ratio0.92D MVAcm2 DECEL [id number] 1/2 Timems Aortic Valve Aortic ValveAortic Stenosis V10.97m/Marilee Mean GR.4mmHg V21.55m/Marilee Peak GR.10mmHg LVOT Diameter2.0 (1.8-2.4cm)Doppler AVA1.97cm2 AI P 1/2 Hsdq771.65ms Pulmonic Valve V21.12m/s Tricuspid Valve TR Velocity2.68m/s [id number] Other Information Conclusion Left ventricle: Left ventricular systolic function was around 35%. Anterior/anteroseptal/apical hyp okinesia was seen. Compatible with ischemic cardiomyopathy Right ventricle is normal-sized with normal systolic function. Left atrium was mildly dilated. Righ t atrium was normal-sized. Aortic valve was trileaflet. There was no aortic stenosis. There was trace aortic insufficiency. T here was mild mitral regurgitation. There was trace pulmonary valve insufficiency. There was trace tricuspid regurgitation. Right ventricular systolic pressure was assessed normal at 31 mm Hg. IVC was normal-sized with normal respiratory variation. There was no pericardial effusion.
[2024-11-20] MEDS: ATORVASTATIN 20 MG TAB PO SCH (20:25)
[2024-11-20] MEDS ORDERED: ATORVASTATIN 20 MG TAB PO SCH (22:00)
[2024-11-20 23:20] LABS: INR 1.03 (0.9-1.15); Partial Thromboplastin Time 61.2 SEC (24.5-34.5); Prothrombin Time 10.9 sec (9.3-11.8)
[2024-11-21] VITALS (10 sets, daily range): BP systolic 104–161; BP diastolic 55–70; PULSE 47–71; RESP 17–20; TEMP 97.5–98.6; O2SAT 93–99
[2024-11-21 07:05] LABS: INR 1.03 (0.9-1.15); Partial Thromboplastin Time 66.6 SEC (24.5-34.5); Prothrombin Time 10.9 sec (9.3-11.8)
[2024-11-21] MEDS: DOCUSATE SOD 100 MG CAP PO PRN (08:59)
--- NOTE | 2024-11-21 09:16 | ECG ---
[facility] Test Date: 2024-11-20 Test Time: 09:26:19 Pat Name: CHRISTY ASIF Department: Room: [facility]7T A Gender: F Merchandise Coordinator: dena : 1940 Requested By: BANDAR MAURICIO Order Number: [id number] Reading MD: Rober Hudson Measurements Intervals [place] Rate: 64 P: 99 NM: 163 QRS: 21 QRSD: 99 T: 57 QT: 431 QTc: 445 Interpretive Statements Sinus rhythm Multiform ventricular premature complexes Probable anteroseptal infarct, recent Electronically Signed On 11-22-2024 18:27:11 PDT by Rober Hudson Please click the below link to view image of tracing.
--- NOTE | 2024-11-21 09:17 | CONS ---
Pharmacy Clinical Information: HEPARIN DRIP UPDATE aPTT 66.6 NO CHANGE NEXT PTT SCHEDULED 11/22@0500 COMMUNICATED WITH RN CLAUDIA CASTANO PHARMACIST Nov 21, 2024 09:17
--- NOTE | 2024-11-21 12:39 | DVHPN2 ---
Reviewed: Care Plan, H&P, Labs, Medications, Previous Orders, Radiology Changes from previous H/P or p: No Changes Eyes: No Pain, No Vision change, No Conjunctivae inflammation, No Eyelid inflammation, No Other, No Redness ENT: No Ear pain, No Ear discharge, No Nose pain, No Nose discharge, No Nose congestion, No Mouth pain, No Mouth swelling, No Throat pain, No Throat swelling, No Other Cardiovascular: Chest Pain; No Palpitations, No Orthopnea, No Paroxysmal Noc. Dyspnea, No Edema, No Lt Headedness, No Other Respiratory: No Cough, No Dry, No Shortness of breath, No SOB with excertion, No Wheezing, No Hemoptysis, No Pleuritic Pain, No Sputum, No Other Gastrointestinal: Nausea; No Vomiting, No Abdominal Pain, No Diarrhea, No Constipation, No Melena, No Hematochezia, No Other Genitourinary: No Dysuria, No Frequency, No Incontinence, No Hematuria, No Retention, No Other Musculoskeletal: No other, No neck pain, No shoulder pain, No arm pain, No back pain, No hand pain, No leg pain, No foot pain Skin: No Rash, No Lesions, No Jaundice, No Bruising, No Other Objective Vitals Vital Signs Date Time Temp Pulse Resp B/P (MAP) Pulse Ox O2 Delivery O2 Flow Rate FiO2 11/21/24 12:21 98.6 60 18 153/68 (96) 99 98.6 11/21/24 08:00 Room Air* 0 21 Intake/Output Intake and Output 11/21/24 07:00 Intake Total 1330 ml Balance 1330 ml Intake Oral 1330 ml # Voids 7 Medications Current Medications Medications Dose Ordered Sig/Aparna Route Start Time Stop Time Status Last Admin Dose Admin Morphine Sulfate 2 mg Q4HPRN PRN IV 11/19/24 17:30 11/20/24 05:40 2 MG Morphine Sulfate 2 mg Q30MIN PRN IV 11/19/24 20:15 11/19/24 23:47 2 MG Ondansetron HCl 4 mg Q6HP PRN IV 11/19/24 20:15 11/20/24 09:44 4 MG Amlodipine Besylate 5 mg DAILY PO 11/20/24 10:00 11/21/24 08:47 5 MG Hydralazine HCl 10 mg Q6HP PRN IV 11/19/24 22:30 Aspirin 81 mg DAILY PO 11/20/24 10:00 11/21/24 08:47 81 MG Sodium Chloride 10 ml Q8HR IV 11/20/24 06:00 11/21/24 06:26 10 ML Acetaminophen/ Hydrocodone Bitart 1 tab Q4HP PRN PO 11/19/24 22:30 11/21/24 12:26 1 TAB Docusate Sodium 100 mg BIDPRN PRN PO 11/19/24 22:30 11/21/24 08:59 100 MG Acetaminophen 650 mg Q6HP PRN PO 11/19/24 22:30 Nitroglycerin 0.4 mg Q5MINP PRN SL 11/19/24 22:30 Heparin Sodium/ Dextrose 250 ml @ 7 mls/hr Q24H IV 11/20/24 08:30 11/21/24 08:34 7 MLS/HR Pantoprazole Sodium 40 mg DAILY IV 11/20/24 10:00 11/21/24 08:37 40 MG Sodium Chloride 1,000 ml @ 100 mls/hr Q10H IV 11/20/24 08:45 11/21/24 04:19 100 MLS/HR Atorvastatin Calcium 80 mg HS PO 11/20/24 22:00 11/20/24 20:25 80 MG Laboratory Results Laboratory Tests 11/20/24 02:48 Coagulation Test 11/20/24 16:45 11/20/24 22:57 11/21/24 05:54 Prothrombin Time 11.1 sec (9.3-11.8) 10.9 sec (9.3-11.8) 10.9 sec (9.3-11.8) Prothrombin Time INR 1.05 (0.9-1.15) 1.03 (0.9-1.15) 1.03 (0.9-1.15) Activated Partial Thromboplast Time 57.7 SEC (24.5-34.5) H 61.2 SEC (24.5-34.5) H 66.6 SEC (24.5-34.5) H Labs and/or images reviewed: Labs reviewed by me, Image(s) reviewed by me Assessment/Plan Assessment/Plan Acute chest pain rule out coronary artery disease: Heparin drip treatment per ACS protocol Non ST-elevation [place] with troponin 2900: Dr. Le planning for cardiac catheterization Hypokalemia Generalized weakness GRAY PCP Dr. Denny Patient lives with her son Time Spent 55 minutes Advanced care planning time 20 minutes Patient is full code Plan discussed with: Patient Date of Service: Nov 21, 2024 Billing Provider: JOSEPH FREITAS MD Common Visit Codes: [id number] INP/OBS CARE(HIGH) JOSEPH FREITAS MD Nov 21, 2024 12:39
--- NOTE | 2024-11-21 16:24 | DVHPN2 ---
Progress Note - Dictate Date Seen: Nov 21, 2024 Medical Necessity Reason Pt with a Central, PICC or Fol: No vital signs Vital Sign Date Time Temp Pulse Resp B/P (MAP) Pulse Ox O2 Delivery O2 Flow Rate FiO2 11/21/24 12:21 98.6 60 18 153/68 (96) 99 98.6 11/21/24 08:00 Room Air* 0 21 Total Intake and Output 11/20/24 11/20/24 11/21/24 15:00 23:00 07:00 Intake Total 600 ml 730 ml Balance 600 ml 730 ml medications Current Medications Medications Dose Ordered Sig/Aparna Route Start Time Stop Time Status Last Admin Dose Admin Morphine Sulfate 2 mg Q4HPRN PRN IV 11/19/24 17:30 11/20/24 05:40 2 MG Morphine Sulfate 2 mg Q30MIN PRN IV 11/19/24 20:15 11/19/24 23:47 2 MG Ondansetron HCl 4 mg Q6HP PRN IV 11/19/24 20:15 11/20/24 09:44 4 MG Amlodipine Besylate 5 mg DAILY PO 11/20/24 10:00 11/21/24 08:47 5 MG Hydralazine HCl 10 mg Q6HP PRN IV 11/19/24 22:30 Aspirin 81 mg DAILY PO 11/20/24 10:00 11/21/24 08:47 81 MG Sodium Chloride 10 ml Q8HR IV 11/20/24 06:00 11/21/24 14:23 10 ML Docusate Sodium 100 mg BIDPRN PRN PO 11/19/24 22:30 11/21/24 08:59 100 MG Acetaminophen 650 mg Q6HP PRN PO 11/19/24 22:30 Nitroglycerin 0.4 mg Q5MINP PRN SL 11/19/24 22:30 Heparin Sodium/ Dextrose 250 ml @ 7 mls/hr Q24H IV 11/20/24 08:30 11/21/24 08:34 7 MLS/HR Pantoprazole Sodium 40 mg DAILY IV 11/20/24 10:00 11/21/24 08:37 40 MG Sodium Chloride 1,000 ml @ 100 mls/hr Q10H IV 11/20/24 08:45 11/21/24 04:19 100 MLS/HR Atorvastatin Calcium 80 mg HS PO 11/20/24 22:00 11/20/24 20:25 80 MG Acetaminophen/ Hydrocodone Bitart 1 tab Q6HP PRN PO 11/21/24 12:45 laboratory and microbiology Laboratory Tests 11/20/24 02:48 Test 11/20/24 02:48 Range/Units Serum Glucose 130 H 74-106 mg/dL Assessment/Plan Patient is a 84-year-old female who presented to the hospital with chest discomfort. She mentions that she was at the pain management and when driving back home started to feel chest discomfort. Later she decided to come to the hospital. Cardiology is involved for cardiac aspects of care. Patient is known to our practice from outside. Not in acute distress. No JVD. Mucosa is pink and wet. No carotid bruit. Scattered rhonchi in the lungs is heard. Not using accessory muscles of breathing. Cardiac: Regular, no thrill/gallop. Abdomen is soft. Bowel sound is positive. No tenderness. Extremities do not reveal edema. Dorsalis pedis 2+ bilateral Past medical history includes hypertension, hyperlipidemia, asthma, neuropathy, history of mild mitral valve prolapse, CKD, status post right hip replacement and history of lumbar stenosis. Nuclear stress test (performed in the office) in February 2024 revealed scar. Echocardiogram (performed in the office) of December 2023 had revealed preserved ejection fraction with questionable mild mitral valve prolapse and [id number] mitral regurgitation Creatinine: 1.37 - 1.35 Potassium: 3.3 - 4.3 Troponin (high sensitive): 22 - 97- 1279 - 2791 - 2877 - 2931 TSH: 0.71 Chest x-ray revealed: IMPRESSION: 1. No evidence of acute disease. EKG revealed sinus rhythm with old anterior SD Echocardiogram revealed: Left ventricle: Left ventricular systolic function was around 35%. Anterior/anteroseptal/apical hypokinesia was seen. Compatible with ischemic cardiomyopathy. Right ventricle is normal-sized with normal systolic function. Left atrium was mildly dilated. Right atrium was normal-sized. Aortic valve was trileaflet. There was no aortic stenosis. There was trace aortic insufficiency. There was mild mitral regurgitation. There was trace pulmonary valve insufficiency. There was trace tricuspid regurgitation. Right ventricular systolic pressure was assessed normal at 31 mm Hg. IVC was normal- sized with normal respiratory variation. There was no pericardial effusion. Patient is a 84-year-old female who presented with chest discomfort. Troponin has been increasing. Diagnosis and non-STEMI. Chest pain Non-STEMI Hypertension Hyperlipidemia CKD Cardiac suggestion for management: Managed on telemetry Follow-up electrolytes and kidney function tests and correct abnormalities ASA: 81 mg daily Heparin drip Lipitor Cardiac catheterization tomorrow morning Further evaluation and management depends on the above and clinical course A total of 55 minutes was spent reviewing the patient record, examining the patient, making a diagnostic and therapeutic plan, discussing this plan with medical personnel, following up on diagnostic studies and following the patient for clinical stability excluding any and all procedures. At least 50% of this time was spent in direct, [id number] contact. Thank you for allowing me to participate in this patient's care. Further recommendations will depend on patient's clinical course. Please do not hesitate to contact me if you have any questions or concerns. This medical document was created using electronic medical record system with [employer] computerized dictation system. Although this document has been carefully reviewed, there may still be some phonetic and typographical errors. These areas are purely typographical due to the imperfection of the software programs, and do not reflect any compromise in the patient's medical care. Plan discussed with: Patient, Other (nurse) GAMA FERRO MD Nov 21, 2024 16:24
[2024-11-21] MEDS: HYDROcodone-ACET 10/325MG TAB PO PRN (16:46)
[2024-11-21 18:28] LABS: Hematocrit 35.4 % (36.0-46.0); Hemoglobin 12.2 g/dL (12.2-16.2); Mean Corpuscular Hemoglobin 30.3 pg (28.0-32.0); Mean Corpuscular Volume 87.9 fL (80.0-100.0); Nucleated Red Blood Cells % 0.0 %
[2024-11-21 18:42] LABS: Alanine Aminotransferase 20 U/L (7-40); Albumin 4.2 g/dL (3.2-4.8); Alkaline Phosphatase 86 U/L (46-116); Anion Gap 8 (5-15); BUN/Creatinine Ratio 16.7 (10.0-20.0); Bilirubin, Total 0.4 mg/dL (0.2-1.0); Blood Urea Nitrogen 20 mg/dL (9-23); Carbon Dioxide 27 mmol/L (20-31); Chloride 107 mmol/L (98-107); Glucose 103 mg/dL (74-106); Potassium 3.9 mmol/L (3.5-5.1); Sodium 142 mmol/L (136-145); Total Protein 6.4 g/dL (5.7-8.2)
[2024-11-21 18:44] LABS: Calcium 8.6 mg/dL (8.7-10.4)
[2024-11-22] VITALS (11 sets, daily range): BP systolic 121–177; BP diastolic 55–83; PULSE 6–71; RESP 10–17; TEMP 96.4–98.2; O2SAT 98–100
[2024-11-22 06:37] LABS: Hematocrit 34.6 % (36.0-46.0); Hemoglobin 11.8 g/dL (12.2-16.2); Mean Corpuscular Hemoglobin 29.9 pg (28.0-32.0); Mean Corpuscular Volume 87.6 fL (80.0-100.0); Nucleated Red Blood Cells % 0.0 %
[2024-11-22 07:02] LABS: INR 1.04 (0.9-1.15); Partial Thromboplastin Time 69.8 SEC (24.5-34.5); Prothrombin Time 11.0 sec (9.3-11.8)
--- NOTE | 2024-11-22 07:59 | DVHPN2 ---
Progress Note - Dictate Date Seen: Nov 22, 2024 Medical Necessity Reason Pt with a Central, PICC or Fol: No vital signs Vital Sign Date Time Temp Pulse Resp B/P (MAP) Pulse Ox O2 Delivery O2 Flow Rate FiO2 11/22/24 07:31 Nasal Cannula* 2 28 11/22/24 05:00 97.3 52 16 139/79 (99) 99 97.3 Total Intake and Output 11/21/24 11/21/24 11/22/24 15:00 23:00 07:00 Intake Total 415 ml 1150 ml Balance 415 ml 1150 ml medications Current Medications Medications Dose Ordered Sig/Aparna Route Start Time Stop Time Status Last Admin Dose Admin Morphine Sulfate 2 mg Q4HPRN PRN IV 11/19/24 17:30 11/20/24 05:40 2 MG Morphine Sulfate 2 mg Q30MIN PRN IV 11/19/24 20:15 11/19/24 23:47 2 MG Ondansetron HCl 4 mg Q6HP PRN IV 11/19/24 20:15 11/20/24 09:44 4 MG Amlodipine Besylate 5 mg DAILY PO 11/20/24 10:00 11/21/24 08:47 5 MG Hydralazine HCl 10 mg Q6HP PRN IV 11/19/24 22:30 Aspirin 81 mg DAILY PO 11/20/24 10:00 11/21/24 08:47 81 MG Sodium Chloride 10 ml Q8HR IV 11/20/24 06:00 11/22/24 06:08 10 ML Docusate Sodium 100 mg BIDPRN PRN PO 11/19/24 22:30 11/21/24 08:59 100 MG Acetaminophen 650 mg Q6HP PRN PO 11/19/24 22:30 Nitroglycerin 0.4 mg Q5MINP PRN SL 11/19/24 22:30 Heparin Sodium/ Dextrose 250 ml @ 7 mls/hr Q24H IV 11/20/24 08:30 11/21/24 08:34 7 MLS/HR Pantoprazole Sodium 40 mg DAILY IV 11/20/24 10:00 11/21/24 08:37 40 MG Sodium Chloride 1,000 ml @ 100 mls/hr Q10H IV 11/20/24 08:45 11/22/24 01:46 100 MLS/HR Atorvastatin Calcium 80 mg HS PO 11/20/24 22:00 11/21/24 21:35 80 MG Acetaminophen/ Hydrocodone Bitart 1 tab Q6HP PRN PO 11/21/24 12:45 11/21/24 16:46 1 TAB laboratory and microbiology Laboratory Tests 11/22/24 04:44 11/21/24 18:21 Test 11/21/24 18:21 Range/Units Serum Glucose 103 74-106 mg/dL Assessment/Plan Patient is a 84-year-old female who presented to the hospital with chest discomfort. She mentions that she was at the pain management and when driving back home started to feel chest discomfort. Later she decided to come to the hospital. Cardiology is involved for cardiac aspects of care. Patient is known to our practice from outside. Not in acute distress. No JVD. Mucosa is pink and wet. No carotid bruit. Scattered rhonchi in the lungs is heard. Not using accessory muscles of breathing. Cardiac: Regular, no thrill/gallop. Abdomen is soft. Bowel sound is positive. No tenderness. Extremities do not reveal edema. Dorsalis pedis 2+ bilateral Past medical history includes hypertension, hyperlipidemia, asthma, neuropathy, history of mild mitral valve prolapse, CKD, status post right hip replacement and history of lumbar stenosis. Nuclear stress test (performed in the office) in February 2024 revealed scar. Echocardiogram (performed in the office) of December 2023 had revealed preserved ejection fraction with questionable mild mitral valve prolapse and [id number]-[id number] mitral regurgitation Creatinine: 1.37 - 1.35 Potassium: 3.3 - 4.3 Troponin (high sensitive): 22 - 97- 1279 - 2791 - 1512 - 2931 TSH: 0.71 Chest x-ray revealed: IMPRESSION: 1. No evidence of acute disease. EKG revealed sinus rhythm with old anterior [place] Echocardiogram revealed: Left ventricle: Left ventricular systolic function was around 35%. Anterior/anteroseptal/apical hypokinesia was seen. Compatible with ischemic cardiomyopathy. Right ventricle is normal-sized with normal systolic function. Left atrium was mildly dilated. Right atrium was normal-sized. Aortic valve was trileaflet. There was no aortic stenosis. There was trace aortic insufficiency. There was mild mitral regurgitation. There was trace pulmonary valve insufficiency. There was trace tricuspid regurgitation. Right ventricular systolic pressure was assessed normal at 31 mm Hg. IVC was normal- sized with normal respiratory variation. There was no pericardial effusion. Patient is a 84-year-old female who presented with chest discomfort. Troponin has been increasing. Diagnosis and non-STEMI. Chest pain Non-STEMI Hypertension Hyperlipidemia CKD Cardiac suggestion for management: Managed on telemetry Follow-up electrolytes and kidney function tests and correct abnormalities ASA: 81 mg daily Heparin drip Lipitor Cardiac catheterization, today Further evaluation and management depends on the above and clinical course A total of 55 minutes was spent reviewing the patient record, examining the patient, making a diagnostic and therapeutic plan, discussing this plan with medical personnel, following up on diagnostic studies and following the patient for clinical stability excluding any and all procedures. At least 50% of this time was spent in direct, [id number] contact. Thank you for allowing me to participate in this patient's care. Further recommendations will depend on patient's clinical course. Please do not hesitate to contact me if you have any questions or concerns. This medical document was created using electronic medical record system with [employer] computerized dictation system. Although this document has been carefully reviewed, there may still be some phonetic and typographical errors. These areas are purely typographical due to the imperfection of the software programs, and do not reflect any compromise in the patient's medical care. Plan discussed with: Patient, Other (nurse) GAMA FERRO MD Nov 22, 2024 07:59
--- NOTE | 2024-11-22 12:14 | ECG ---
[facility] Test Date: 2024-11-19 Test Time: 17:09:56 Pat Name: CHRISTY ASIF Department: ED Room: 0277T A Gender: F Medical Billing Associate: er : 1940 Requested By: EMERGENCY EMERGENCY Order Number: [id number] Reading MD: Rober Hudson Measurements Intervals [place] Rate: 46 P: 74 DE: 177 QRS: 74 QRSD: 95 T: 46 QT: 482 QTc: 422 Interpretive Statements Sinus bradycardia Anterior infarct, old Minimal ST depression, lateral leads Electronically Signed On 11-22-2024 18:48:52 PDT by Rober Hudson Please click the below link to view image of tracing.
--- NOTE | 2024-11-22 12:40 | ECG ---
[facility] Test Date: 2024-11-20 Test Time: 09:27:14 Pat Name: CHRISTY ASIF Department: Room: [facility]7T A Gender: F Patient Access Specialist: dena : 1940 Requested By: GAMA FERRO Order Number: [id number] Reading MD: Rober Hudson Measurements Intervals [place] Rate: 59 P: 85 [place]: 174 QRS: 9 QRSD: 94 T: 63 QT: 453 QTc: 449 Interpretive Statements Sinus rhythm Multiple premature complexes, vent & supraven Probable anteroseptal infarct, recent Baseline wander in lead(s) V1 Electronically Signed On 11-22-2024 18:27:18 PDT by Rober Hudson Please click the below link to view image of tracing.
--- NOTE | 2024-11-22 13:00 | DVHPN2 ---
Reviewed: Care Plan, H&P, Labs, Medications, Previous Orders, Radiology Changes from previous H/P or p: No Changes Eyes: No Pain, No Vision change, No Conjunctivae inflammation, No Eyelid inflammation, No Other, No Redness ENT: No Ear pain, No Ear discharge, No Nose pain, No Nose discharge, No Nose congestion, No Mouth pain, No Mouth swelling, No Throat pain, No Throat swelling, No Other Cardiovascular: Chest Pain; No Palpitations, No Orthopnea, No Paroxysmal Noc. Dyspnea, No Edema, No Lt Headedness, No Other Respiratory: No Cough, No Dry, No Shortness of breath, No SOB with excertion, No Wheezing, No Hemoptysis, No Pleuritic Pain, No Sputum, No Other Gastrointestinal: Nausea; No Vomiting, No Abdominal Pain, No Diarrhea, No Constipation, No Melena, No Hematochezia, No Other Genitourinary: No Dysuria, No Frequency, No Incontinence, No Hematuria, No Retention, No Other Musculoskeletal: No other, No neck pain, No shoulder pain, No arm pain, No back pain, No hand pain, No leg pain, No foot pain Skin: No Rash, No Lesions, No Jaundice, No Bruising, No Other Objective Vitals Vital Signs Date Time Temp Pulse Resp B/P (MAP) Pulse Ox O2 Delivery O2 Flow Rate FiO2 11/22/24 11:41 177/76 11/22/24 09:00 98.1 59 17 99 98.1 11/22/24 07:31 Nasal Cannula* 2 28 Intake/Output Intake and Output 11/22/24 07:00 Intake Total 1565 ml Balance 1565 ml Intake Oral 565 ml IV Total 1000 ml # Voids 8 # Bowel Movements 6 Medications Current Medications Medications Dose Ordered Sig/Aparna Route Start Time Stop Time Status Last Admin Dose Admin Morphine Sulfate 2 mg Q4HPRN PRN IV 11/19/24 17:30 11/20/24 05:40 2 MG Morphine Sulfate 2 mg Q30MIN PRN IV 11/19/24 20:15 11/19/24 23:47 2 MG Ondansetron HCl 4 mg Q6HP PRN IV 11/19/24 20:15 11/20/24 09:44 4 MG Amlodipine Besylate 5 mg DAILY PO 11/20/24 10:00 11/22/24 11:41 5 MG Hydralazine HCl 10 mg Q6HP PRN IV 11/19/24 22:30 Aspirin 81 mg DAILY PO 11/20/24 10:00 11/22/24 11:38 81 MG Sodium Chloride 10 ml Q8HR IV 11/20/24 06:00 11/22/24 06:08 10 ML Docusate Sodium 100 mg BIDPRN PRN PO 11/19/24 22:30 11/21/24 08:59 100 MG Acetaminophen 650 mg Q6HP PRN PO 11/19/24 22:30 Nitroglycerin 0.4 mg Q5MINP PRN SL 11/19/24 22:30 Heparin Sodium/ Dextrose 250 ml @ 7 mls/hr Q24H IV 11/20/24 08:30 11/21/24 08:34 7 MLS/HR Pantoprazole Sodium 40 mg DAILY IV 11/20/24 10:00 11/22/24 11:44 40 MG Sodium Chloride 1,000 ml @ 100 mls/hr Q10H IV 11/20/24 08:45 11/22/24 01:46 100 MLS/HR Atorvastatin Calcium 80 mg HS PO 11/20/24 22:00 11/21/24 21:35 80 MG Acetaminophen/ Hydrocodone Bitart 1 tab Q6HP PRN PO 11/21/24 12:45 11/21/24 16:46 1 TAB Laboratory Results Laboratory Tests 11/21/24 18:21 11/22/24 04:44 Chemistry Test 11/21/24 18: Albumin 4.2 g/dL (3.2-4.8) Calcium Level 8.6 mg/dL (8.7-10.4) L Total Protein 6.4 g/dL (5.7-8.2) Coagulation Test 11/22/24 04:44 Prothrombin Time 11.0 sec (9.3-11.8) Prothrombin Time INR 1.04 (0.9-1.15) Activated Partial Thromboplast Time 69.8 SEC (24.5-34.5) H LFT Test 11/21/24 18:21 Alanine Aminotransferase (ALT) 20 U/L (7-40) Alkaline Phosphatase 86 U/L (46-116) Aspartate Amino Transferase (AST) 27 U/L (13-40) Total Bilirubin 0.4 mg/dL (0.2-1.0) Labs and/or images reviewed: Labs reviewed by me, Image(s) reviewed by me Assessment/Plan Assessment/Plan Acute chest pain rule out coronary artery disease: Heparin drip treatment per ACS protocol Non ST-elevation [place] with troponin 2900: Dr. Le planning for cardiac catheterization today Hypokalemia Generalized weakness GRAY PCP Dr. Denny Patient lives with her son Time Spent 55 minutes Advanced care planning time 20 minutes Patient is full code New PCP DR Nascimento Daughter [facility] [phone] bedside. Patient lives with her daughter. Plan discussed with: Patient Date of Service: Nov 22, 2024 Billing Provider: SHIVAM REYES INT Common Visit Codes: [id number] INP/OBS CARE(HIGH) JOSEPH FREITAS MD Nov 22, 2024 13:00
--- NOTE | 2024-11-22 13:23 | CONS ---
Pharmacy Clinical Information: HEPARIN DRIP, ACS PROTOCOL @0444 APTT 69.8- NO BOLUS, NO CHANGE 3 CONSECUTIVE APTT THERAPEUTIC => APTT EVERY 24 HRS NEXT APTT DRAW SCHEDULED @0500 PER RX PROTOCOL CONFIRMED AND READ BACK WITH RN CECILIA WILBURN [facility] RESIDENT Nov 22, 2024 13:23
[2024-11-22] MEDS: IODIXANOL 320MG/ML 100ML BTL IV ONE (14:03)
[2024-11-22] MEDS: fentaNYL CITRATE 100 MCG/2 ML VL ONE (14:06)
[2024-11-22] MEDS: VERAPAMIL 2.5MG/ML INJ 2ML VIAL IV ONE (14:06)
[2024-11-22] MEDS: HEPARIN SODIUM (PORCINE) 5000 UNITS/ML 1ML VIAL ONE (14:06)
[2024-11-22] MEDS: ANGIOMAX 250 MG VIAL IV ONE (14:06)
[2024-11-22] MEDS: MIDAZOLAM HCL 2MG/2ML 2ml VIAL (1mg/ml) ONE (14:07)
[2024-11-22] MEDS: SODIUM CHL 0.9% 50 ML ONE (14:07)
[2024-11-22] MEDS: LIDOCAINE 2%HCL (LOCAL ANESTH.) INJ 20ML MDV ONE (14:07)
[2024-11-22] MEDS ORDERED: TRIA37.586 PO (14:55)
[2024-11-22] MEDS: ENOXAPARIN SOD 60 MG/0.6 ML SYRINGE SC ONE (15:45)
[2024-11-22] MEDS: ENOXAPARIN SOD 30 MG/0.3 ML SYRINGE IV ONE (15:45)
[2024-11-22] MEDS: CLOPIDOGREL BISULFATE 75 MG TAB PO ONE (16:15)
--- NOTE | 2024-11-22 16:22 | DVHOP2 ---
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 It was free of disease. Ramus Intermedius: Ramus Intermedius was a small caliber vessel (bifurcating) which came off the Left Main. It had minor luminal irregularities. LAD: LAD was coming off the Left Main. It provided a large 1st diagonal and a medium-sized 2nd diagonal. LAD throughout its course and branches had gauo-lt-miahhhno disease. LCX: LCX was a large caliber vessel which came off the left main. LCX itself continued as a large caliber and tortuous 1st obtuse marginal. We could not identify the ostium/branch nourishing the left PDA. Patent portions LCX and branches had mild diffuse disease. RCA: RCA was a small caliber vessel coming off the right sinus of Valsalva. It was a nondominant vessel with mild diffuse disease. It did give collaterals to the left-sided PDA. Presentation: Patient is a 84-year-old female who presented with chest discomfort to the hospital. With diagnosis of non-STEMI, the patient was sent for cardiac catheterization. Procedure: After obtaining informed consent, the patient was brought to microbiology lab manager. She was prepped and draped in sterile fashion. Right radial artery was used for access site. 1 mg of Versed and 25 mcg of fentanyl were given for moderate sedation. Using Seldinger technique, the right radial artery was acc essed and a six [place]ian slender sheath was inserted into it. 2.5 mg of verapamil and 100 mcg of nitroglycerin were given as a cocktail into right radial sheath. A five [place]ian tiger four diagnostic catheter was used to perform left heart catheterization (obtaining pressures) and performing bilateral coronary angiography. We could identify that the PDA was closed and was being fed via patent collaterals coming from right-sided arteries (RCA). We could not identify the ostium of the vessel giving branch to the PUBLIC RECORDS RESEARCHER in the left coronary system. Recognizing the presence of collaterals, decision was made to manage the patient medically. Patient was started on Plavix. She was free of symptoms. Hemodynamically, she was stable. Total bleeding was less than 5 mL. There was no dissection/hematoma/perforation. Patient tolerated the procedure with no complication. Right radial artery access site was managed by deploying a TR band. Fluoroscopy time: 5.2 minutes contrast: 45 mL of ArunipaGAMA Reza MD Nov 22, 2024 16:22
[2024-11-22] MEDS: CARVEDILOL 3.125 MG TAB PO SCH (21:25)
[2024-11-22] MEDS ORDERED: SACUBITRIL-VALSARTAN 24mg/26mg TAB PO SCH (22:00)
[2024-11-23] VITALS (8 sets, daily range): BP systolic 109–148; BP diastolic 61–75; PULSE 50–60; RESP 14–18; TEMP 97.5–98.1; O2SAT 96–98
[2024-11-23] MEDS: ENOXAPARIN SOD 60 MG/0.6 ML SYRINGE SC SCH (05:09)
--- NOTE | 2024-11-23 07:38 | DVHPN2 ---
Progress Note - Dictate Date Seen: Nov 23, 2024 Medical Necessity Reason Pt with a Central, PICC or Fol: No vital signs Vital Sign Date Time Temp Pulse Resp B/P (MAP) Pulse Ox O2 Delivery O2 Flow Rate FiO2 11/23/24 05:00 98.0 54 17 146/61 (89) 98 98.0 11/22/24 20:00 Nasal Cannula* 2 28 Total Intake and Output 11/22/24 11/22/24 11/23/24 15:00 23:00 07:00 Intake Total 0 ml 400 ml Balance 0 ml 400 ml medications Current Medications Medications Dose Ordered Sig/Aparna Route Start Time Stop Time Status Last Admin Dose Admin Morphine Sulfate 2 mg Q4HPRN PRN IV 11/19/24 17:30 11/20/24 05:40 2 MG Morphine Sulfate 2 mg Q30MIN PRN IV 11/19/24 20:15 11/19/24 23:47 2 MG Ondansetron HCl 4 mg Q6HP PRN IV 11/19/24 20:15 11/23/24 05:01 4 MG Amlodipine Besylate 5 mg DAILY PO 11/20/24 10:00 11/22/24 11:41 5 MG Hydralazine HCl 10 mg Q6HP PRN IV 11/19/24 22:30 Aspirin 81 mg DAILY PO 11/20/24 10:00 11/22/24 11:38 81 MG Sodium Chloride 10 ml Q8HR IV 11/20/24 06:00 11/23/24 05:12 10 ML Docusate Sodium 100 mg BIDPRN PRN PO 11/19/24 22:30 11/21/24 08:59 100 MG Acetaminophen 650 mg Q6HP PRN PO 11/19/24 22:30 Nitroglycerin 0.4 mg Q5MINP PRN SL 11/19/24 22:30 Pantoprazole Sodium 40 mg DAILY IV 11/20/24 10:00 11/22/24 11:44 40 MG Sodium Chloride 1,000 ml @ 100 mls/hr Q10H IV 11/20/24 08:45 11/22/24 21:30 100 MLS/HR Atorvastatin Calcium 80 mg HS PO 11/20/24 22:00 11/22/24 21:24 80 MG Acetaminophen/ Hydrocodone Bitart 1 tab Q6HP PRN PO 11/21/24 12:45 11/23/24 02:39 1 TAB Carvedilol 3.125 mg Q12HR PO 11/22/24 22:00 11/22/24 21: 3.125 MG Spironolactone 25 mg DAILY PO 11/23/24 10:00 Clopidogrel Bisulfate 75 mg DAILY PO 11/23/24 10:00 Enoxaparin Sodium 60 mg Q12HR@0500,1700 SC 11/23/24 05:00 11/23/24 05:09 60 MG laboratory and microbiology Laboratory Tests 11/22/24 04:44 11/21/24 18:21 Test 11/21/24 18:21 Range/Units Serum Glucose 103 74-106 mg/dL Assessment/Plan Patient is a 84-year-old female who presented to the hospital with chest discomfort. She mentions that she was at the pain management and when driving back home started to feel chest discomfort. Later she decided to come to the hospital. Cardiology is involved for cardiac aspects of care. Patient is known to our practice from outside. Not in acute distress. No JVD. Mucosa is pink and wet. No carotid bruit. Scattered rhonchi in the lungs is heard. Not using accessory muscles of breathing. Cardiac: Regular, no thrill/gallop. Abdomen is soft. Bowel sound is positive. No tenderness. Extremities do not reveal edema. Dorsalis pedis 2+ bilateral Past medical history includes hypertension, hyperlipidemia, asthma, neuropathy, history of mild mitral valve prolapse, CKD, status post right hip replacement and history of lumbar stenosis. Nuclear stress test (performed in the office) in February 2024 revealed scar. Echocardiogram (performed in the office) of December 2023 had revealed preserved ejection fraction with questionable mild mitral valve prolapse and tcql-nx-bchmekru mitral regurgitation Creatinine: 1.37 - 1.35 - 1.20 Potassium: 3.3 - 4.3 - 3.9 Troponin (high sensitive): 22 - 97- 3389 - 2521 - 8184 - 2931 TSH: 0.71 Chest x-ray revealed: IMPRESSION: 1. No evidence of acute disease. EKG revealed sinus rhythm with old anterior [place] Echocardiogram revealed: Left ventricle: Left ventricular systolic function was around 35%. Anterior/anteroseptal/apical hypokinesia was seen. Compatible with ischemic cardiomyopathy. Right ventricle is normal-sized with normal systolic function. Left atrium was mildly dilated. Right atrium was normal-sized. Aortic valve was trileaflet. There was no aortic stenosis. There was trace aortic insufficiency. There was mild mitral regurgitation. There was trace pulmonary valve insufficiency. There was trace tricuspid regurgitation. Right ventricular systolic pressure was assessed normal at 31 mm Hg. IVC was normal- sized with normal respiratory variation. There was no pericardial effusion. LHC revealed: Diagnosis: Patent LAD/LCX/ramus intermedius/RCA. 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 Troponin has been increasing. Diagnosis and non-STEMI. Chest pain Non-STEMI Hypertension Hyperlipidemia CKD Cardiac suggestion for management: Managed on telemetry Follow-up electrolytes and kidney function tests and correct abnormalities Lipitor Lovenox for now Optimized medical therapy Dual antiplatelet therapy (loaded with Aspirin/Plavix) Lifestyle and risk factor modifications GDMT for systolic heart failure. Patient is allergic to Valsartan and Entrersto cannot be started. She herself mentions allergy to Lisinopril also. Further evaluation and management depends on the above and clinical course A total of 55 minutes was spent reviewing the patient record, examining the patient, making a diagnostic and therapeutic plan, discussing this plan with medical personnel, following up on diagnostic studies and following the patient for clinical stability excluding any and all procedures. At least 50% of this time was spent in direct, [id number] contact. Thank you for allowing me to participate in this patient's care. Further recommendations will depend on patient's clinical course. Please do not hesitate to contact me if you have any questions or concerns. This medical document was created using electronic medical record system with [employer] computerized dictation system. Although this document has been carefully reviewed, there may still be some phonetic and typographical errors. These areas are purely typographical due to the imperfection of the software programs, and do not reflect any compromise in the patient's medical care. Plan discussed with: Patient, Other (nurse) GAMA FERRO MD Nov 23, 2024 07:37
[2024-11-23] MEDS: CLOPIDOGREL BISULFATE 75 MG TAB PO SCH (10:19)
[2024-11-23] MEDS: ACETAMINOPHEN 325 MG TAB PO PRN (10:20)
[2024-11-23] MEDS: SPIRONOLACTONE 25 MG TAB PO SCH (10:21)
--- NOTE | 2024-11-23 11:56 | DVHPN2 ---
Reviewed: Care Plan, H&P, Labs, Medications, Previous Orders, Radiology Changes from previous H/P or p: No Changes Eyes: No Pain, No Vision change, No Conjunctivae inflammation, No Eyelid inflammation, No Other, No Redness ENT: No Ear pain, No Ear discharge, No Nose pain, No Nose discharge, No Nose congestion, No Mouth pain, No Mouth swelling, No Throat pain, No Throat swelling, No Other Cardiovascular: Chest Pain; No Palpitations, No Orthopnea, No Paroxysmal Noc. Dyspnea, No Edema, No Lt Headedness, No Other Respiratory: No Cough, No Dry, No Shortness of breath, No SOB with excertion, No Wheezing, No Hemoptysis, No Pleuritic Pain, No Sputum, No Other Gastrointestinal: Nausea; No Vomiting, No Abdominal Pain, No Diarrhea, No Constipation, No Melena, No Hematochezia, No Other Genitourinary: No Dysuria, No Frequency, No Incontinence, No Hematuria, No Retention, No Other Musculoskeletal: No other, No neck pain, No shoulder pain, No arm pain, No back pain, No hand pain, No leg pain, No foot pain Skin: No Rash, No Lesions, No Jaundice, No Bruising, No Other Objective Vitals Vital Signs Date Time Temp Pulse Resp B/P (MAP) Pulse Ox O2 Delivery O2 Flow Rate FiO2 11/23/24 10:21 60 146/74 11/23/24 08:35 97.5 16 98 97.5 11/22/24 20:00 Nasal Cannula* 2 28 Intake/Output Intake and Output 11/23/24 07:00 Intake Total 400 ml Balance 400 ml Intake Oral 400 ml # Voids 8 Medications Current Medications Medications Dose Ordered Sig/Aparna Route Start Time Stop Time Status Last Admin Dose Admin Morphine Sulfate 2 mg Q4HPRN PRN IV 11/19/24 17:30 11/20/24 05:40 2 MG Morphine Sulfate 2 mg Q30MIN PRN IV 11/19/24 20:15 11/19/24 23:47 2 MG Ondansetron HCl 4 mg Q6HP PRN IV 11/19/24 20:15 11/23/24 05:01 4 MG Amlodipine Besylate 5 mg DAILY PO 11/20/24 10:00 11/23/24 10:20 5 MG Hydralazine HCl 10 mg Q6HP PRN IV 11/19/24 22:30 Aspirin 81 mg DAILY PO 11/20/24 10:00 11/23/24 10:18 81 MG Sodium Chloride 10 ml Q8HR IV 11/20/24 06:00 11/23/24 05:12 10 ML Docusate Sodium 100 mg BIDPRN PRN PO 11/19/24 22:30 11/21/24 08:59 100 MG Acetaminophen 650 mg Q6HP PRN PO 11/19/24 22:30 11/23/24 10:20 650 MG Nitroglycerin 0.4 mg Q5MINP PRN SL 11/19/24 22:30 Pantoprazole Sodium 40 mg DAILY IV 11/20/24 10:00 11/23/24 10:18 40 MG Sodium Chloride 1,000 ml @ 100 mls/hr Q10H IV 11/20/24 08:45 11/22/24 21:30 100 MLS/HR Atorvastatin Calcium 80 mg HS PO 11/20/24 22:00 11/22/24 21:24 80 MG Acetaminophen/ Hydrocodone Bitart 1 tab Q6HP PRN PO 11/21/24 12:45 11/23/24 02:39 1 TAB Carvedilol 3.125 mg Q12HR PO 11/22/24 22:00 11/23/24 10:21 3.125 MG Spironolactone 25 mg DAILY PO 11/23/24 10:00 11/23/24 10:21 25 MG Clopidogrel Bisulfate 75 mg DAILY PO 11/23/24 10:00 11/23/24 10:19 75 MG Enoxaparin Sodium 60 mg Q12HR@0500,1700 SC 11/23/24 05:00 11/23/24 05:09 60 MG Laboratory Results Laboratory Tests 11/21/24 18:21 11/22/24 04:44 Labs and/or images reviewed: Labs reviewed by me, Image(s) reviewed by me Assessment/Plan Assessment/Plan Acute chest pain secondary to coronary artery disease: Heparin drip treatment per ACS protocol Status Post left heart catheterization by Dr. 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 Denny Patient lives with her son Time Spent 55 minutes Advanced care planning time 20 minutes Patient is full code New PCP DR Nascimento Daughter Gerda [phone] bedside. Patient lives with her daughter. Plan discussed with: Patient Date of Service: Nov 23, 2024 Billing Provider: JOSEPH FREITAS MD Common Visit Codes: [id number] INP/OBS CARE(HIGH) JOSEPH FREITAS MD Nov 23, 2024 11:56
[2024-11-23] MEDS ORDERED: ALBUTEROL SULF 2.5 MG/0.5ML(0.5%) NEB SOLN NEB PRN (18:30)
[2024-11-24] VITALS (10 sets, daily range): BP systolic 126–146; BP diastolic 52–88; PULSE 50–63; RESP 13–18; TEMP 97.7–98.1; O2SAT 95–100
--- NOTE | 2024-11-24 06:43 | DVHPN2 ---
Progress Note - Dictate Date Seen: Nov 24, 2024 Medical Necessity Reason Pt with a Central, PICC or Fol: No vital signs Vital Sign Date Time Temp Pulse Resp B/P (MAP) Pulse Ox O2 Delivery O2 Flow Rate FiO2 11/24/24 04:32 97.8 50 16 134/65 (88) 99 97.8 11/23/24 20:00 Nasal Cannula* 2 28 Total Intake and Output 11/23/24 11/23/24 11/24/24 15:00 23:00 07:00 Intake Total 640 ml 200 ml Balance 640 ml 200 ml medications Current Medications Medications Dose Ordered Sig/Aparna Route Start Time Stop Time Status Last Admin Dose Admin Morphine Sulfate 2 mg Q4HPRN PRN IV 11/19/24 17:30 11/20/24 05:40 2 MG Morphine Sulfate 2 mg Q30MIN PRN IV 11/19/24 20:15 11/19/24 23:47 2 MG Ondansetron HCl 4 mg Q6HP PRN IV 11/19/24 20:15 11/23/24 15:26 4 MG Amlodipine Besylate 5 mg DAILY PO 11/20/24 10:00 11/23/24 10:20 5 MG Hydralazine HCl 10 mg Q6HP PRN IV 11/19/24 22:30 Aspirin 81 mg DAILY PO 11/20/24 10:00 11/23/24 10:18 81 MG Sodium Chloride 10 ml Q8HR IV 11/20/24 06:00 11/24/24 06:07 10 ML Docusate Sodium 100 mg BIDPRN PRN PO 11/19/24 22:30 11/21/24 08:59 100 MG Acetaminophen 650 mg Q6HP PRN PO 11/19/24 22:30 11/23/24 10:20 650 MG Nitroglycerin 0.4 mg Q5MINP PRN SL 11/19/24 22:30 Pantoprazole Sodium 40 mg DAILY IV 11/20/24 10:00 11/23/24 10:18 40 MG Sodium Chloride 1,000 ml @ 100 mls/hr Q10H IV 11/20/24 08:45 11/24/24 04:27 100 MLS/HR Atorvastatin Calcium 80 mg HS PO 11/20/24 22:00 11/23/24 21:20 80 MG Acetaminophen/ Hydrocodone Bitart 1 tab Q6HP PRN PO 11/21/24 12:45 11/23/24 02:39 1 TAB Carvedilol 3.125 mg Q12HR PO 11/22/24 22:00 11/23/24 21:21 3.125 MG Spironolactone 25 mg DAILY PO 11/23/24 10:00 11/23/24 10:21 25 MG Clopidogrel Bisulfate 75 mg DAILY PO 11/23/24 10:00 11/23/24 10:19 75 MG Enoxaparin Sodium 60 mg Q12HR@0500,1700 SC 11/23/24 05:00 11/24/24 04:27 60 MG Albuterol 1.25 mg Q6HP PRN NEB 11/23/24 18:30 laboratory and microbiology Laboratory Tests 11/22/24 04:44 11/21/24 18:21 Test 11/21/24 18:21 Range/Units Serum Glucose 103 74-106 mg/dL Assessment/Plan Patient is a 84-year-old female who presented to the hospital with chest discomfort. She mentions that she was at the pain management and when driving back home started to feel chest discomfort. Later she decided to come to the hospital. Cardiology is involved for cardiac aspects of care. Patient is known to our practice from outside. Not in acute distress. No JVD. Mucosa is pink and wet. No carotid bruit. Scattered rhonchi in the lungs is heard. Not using accessory muscles of breathing. Cardiac: Regular, no thrill/gallop. Abdomen is soft. Bowel sound is positive. No tenderness. Extremities do not reveal edema. Dorsalis pedis 2+ bilateral Past medical history includes hypertension, hyperlipidemia, asthma, neuropathy, history of mild mitral valve prolapse, CKD, status post right hip replacement and history of lumbar stenosis. Nuclear stress test (performed in the office) in February 2024 revealed scar. Echocardiogram (performed in the office) of December 2023 had revealed preserved ejection fraction with questionable mild mitral valve prolapse and [id number] mitral regurgitation Creatinine: 1.37 - 1.35 - 1.20 - 1.09 Potassium: 3.3 - 4.3 - 3.9 - 3.3 Troponin (high sensitive): 22 - 97- 1279 - 2209 - 6237 - 0928 TSH: 0.71 Chest x-ray revealed: IMPRESSION: 1. No evidence of acute disease. EKG revealed sinus rhythm with old anterior VT Echocardiogram revealed: Left ventricle: Left ventricular systolic function was around 35%. Anterior/anteroseptal/apical hypokinesia was seen. Compatible with ischemic cardiomyopathy. Right ventricle is normal-sized with normal systolic function. Left atrium was mildly dilated. Right atrium was normal-sized. Aortic valve was trileaflet. There was no aortic stenosis. There was trace aortic insufficiency. There was mild mitral regurgitation. There was trace pulmonary valve insufficiency. There was trace tricuspid regurgitation. Right ventricular systolic pressure was assessed normal at 31 mm Hg. IVC was normal- sized with normal respiratory variation. There was no pericardial effusion. LHC revealed: Diagnosis: Patent LAD/LCX/ramus intermedius/RCA. 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 Troponin has been increasing. Diagnosis and non-STEMI. Chest pain Non-STEMI Hypertension Hyperlipidemia CKD Cardiac suggestion for management: Managed on telemetry Follow-up electrolytes and kidney function tests and correct abnormalities Lipitor Lovenox for now Optimized medical therapy Dual antiplatelet therapy (loaded with Aspirin/Plavix) Lifestyle and risk factor modifications GDMT for systolic heart failure. Patient is allergic to Valsartan and Entrersto cannot be started. She herself mentions allergy to Lisinopril also. Further evaluation and management depends on the above and clinical course A total of 55 minutes was spent reviewing the patient record, examining the patient, making a diagnostic and therapeutic plan, discussing this plan with medical personnel, following up on diagnostic studies and following the patient for clinical stability excluding any and all procedures. At least 50% of this time was spent in direct, [id number] contact. Thank you for allowing me to participate in this patient's care. Further recommendations will depend on patient's clinical course. Please do not hesitate to contact me if you have any questions or concerns. This medical document was created using electronic medical record system with [employer] dictation system. Although this document has been carefully reviewed, there may still be some phonetic and typographical errors. These areas are purely typographical due to the imperfection of the software programs, and do not reflect any compromise in the patient's medical care. Dietary Evaluation Review Comments: Cardiac diet Encourage increase physical activity Expected Outcomes/Goals: Improved overall health and physcial strength Plan discussed with: Patient, Other (nurse) GAMA FERRO MD Nov 24, 2024 06:43
--- NOTE | 2024-11-24 08:23 | ECG ---
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
[2024-11-24 09:52] LABS: Hematocrit 33.7 % (36.0-46.0); Hemoglobin 11.4 g/dL (12.2-16.2); Mean Corpuscular Hemoglobin 29.4 pg (28.0-32.0); Mean Corpuscular Volume 87.1 fL (80.0-100.0); Nucleated Red Blood Cells % 0.0 %
[2024-11-24 10:09] LABS: Alanine Aminotransferase 22 U/L (7-40); Albumin 3.9 g/dL (3.2-4.8); Alkaline Phosphatase 68 U/L (46-116); Anion Gap 10 (5-15); BUN/Creatinine Ratio 13.8 (10.0-20.0); Blood Urea Nitrogen 15 mg/dL (9-23); Carbon Dioxide 28 mmol/L (20-31); Chloride 106 mmol/L (98-107); Sodium 144 mmol/L (136-145); Total Protein 5.9 g/dL (5.7-8.2)
[2024-11-24 10:10] LABS: Bilirubin, Total 0.6 mg/dL (0.2-1.0)
[2024-11-24 10:11] LABS: Calcium 8.1 mg/dL (8.7-10.4); Glucose 125 mg/dL (74-106); Magnesium 1.2 mg/dL (1.6-2.6); Potassium 3.3 mmol/L (3.5-5.1)
--- NOTE | 2024-11-24 11:46 | DVHPN2 ---
Reviewed: Care Plan, H&P, Labs, Medications, Previous Orders, Radiology Changes from previous H/P or p: No Changes Eyes: No Pain, No Vision change, No Conjunctivae inflammation, No Eyelid inflammation, No Other, No Redness ENT: No Ear pain, No Ear discharge, No Nose pain, No Nose discharge, No Nose congestion, No Mouth pain, No Mouth swelling, No Throat pain, No Throat swelling, No Other Cardiovascular: Chest Pain; No Palpitations, No Orthopnea, No Paroxysmal Noc. Dyspnea, No Edema, No Lt Headedness, No Other Respiratory: No Cough, No Dry, No Shortness of breath, No SOB with excertion, No Wheezing, No Hemoptysis, No Pleuritic Pain, No Sputum, No Other Gastrointestinal: Nausea; No Vomiting, No Abdominal Pain, No Diarrhea, No Constipation, No Melena, No Hematochezia, No Other Genitourinary: No Dysuria, No Frequency, No Incontinence, No Hematuria, No Retention, No Other Musculoskeletal: No other, No neck pain, No shoulder pain, No arm pain, No back pain, No hand pain, No leg pain, No foot pain Skin: No Rash, No Lesions, No Jaundice, No Bruising, No Other Objective Vitals Vital Signs Date Time Temp Pulse Resp B/P (MAP) Pulse Ox O2 Delivery O2 Flow Rate FiO2 11/24/24 10:42 141/52 11/24/24 10:41 58 11/24/24 08:38 97.7 16 99 97.7 11/24/24 08:00 Nasal Cannula* 1 24 Intake/Output Intake and Output 11/24/24 06:59 Intake Total 840 ml Balance 840 ml Intake Oral 840 ml # Voids 6 Medications Current Medications Medications Dose Ordered Sig/Aparna Route Start Time Stop Time Status Last Admin Dose Admin Morphine Sulfate 2 mg Q4HPRN PRN IV 11/19/24 17:30 11/20/24 05:40 2 MG Morphine Sulfate 2 mg Q30MIN PRN IV 11/19/24 20:15 11/19/24 23:47 2 MG Ondansetron HCl 4 mg Q6HP PRN IV 11/19/24 20:15 11/23/24 15:26 4 MG Amlodipine Besylate 5 mg DAILY PO 11/20/24 10:00 11/24/24 10:42 5 MG Hydralazine HCl 10 mg Q6HP PRN IV 11/19/24 22:30 Aspirin 81 mg DAILY PO 11/20/24 10:00 11/24/24 10:52 81 MG Sodium Chloride 10 ml Q8HR IV 11/20/24 06:00 11/24/24 06:07 10 ML Docusate Sodium 100 mg BIDPRN PRN PO 11/19/24 22:30 11/21/24 08:59 100 MG Acetaminophen 650 mg Q6HP PRN PO 11/19/24 22:30 11/23/24 10:20 650 MG Nitroglycerin 0.4 mg Q5MINP PRN SL 11/19/24 22:30 Pantoprazole Sodium 40 mg DAILY IV 11/20/24 10:00 11/24/24 10:39 40 MG Sodium Chloride 1,000 ml @ 100 mls/hr Q10H IV 11/20/24 08:45 11/24/24 04:27 100 MLS/HR Atorvastatin Calcium 80 mg HS PO 11/20/24 22:00 11/23/24 21:20 80 MG Acetaminophen/ Hydrocodone Bitart 1 tab Q6HP PRN PO 11/21/24 12:45 11/23/24 02:39 1 TAB Carvedilol 3.125 mg Q12HR PO 11/22/24 22:00 11/24/24 10:41 3.125 MG Spironolactone 25 mg DAILY PO 11/23/24 10:00 11/24/24 10:40 25 MG Clopidogrel Bisulfate 75 mg DAILY PO 11/23/24 10:00 11/24/24 10:42 75 MG Enoxaparin Sodium 60 mg Q12HR@0500,1700 SC 11/23/24 05:00 11/24/24 04:27 60 MG Albuterol 1.25 mg Q6HP PRN NEB 11/23/24 18:30 Laboratory Results Laboratory Tests 11/24/24 09:27 Chemistry Test 11/24/24 09:27 Albumin 3.9 g/dL (3.2-4.8) Calcium Level 8.1 mg/dL (8.7-10.4) L Magnesium Level 1.2 mg/dL (1.6-2.6) L Total Protein 5.9 g/dL (5.7-8.2) LFT Test 11/24/24 09:27 Alanine Aminotransferase (ALT) 22 U/L (7-40) Alkaline Phosphatase 68 U/L (46-116) Aspartate Amino Transferase (AST) 26 U/L (13-40) Total Bilirubin 0.6 mg/dL (0.2-1.0) Labs and/or images reviewed: Labs reviewed by me, Image(s) reviewed by me Assessment/Plan Assessment/Plan Acute chest pain secondary to coronary artery disease: Heparin drip treatment per ACS protocol Status Post left heart catheterization by Dr. 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 Denny Patient lives with her son Time Spent 55 minutes Advanced care planning time 20 minutes Patient is full code New PCP DR Nascimento Daughter Gerda [phone] bedside. Patient lives with her daughter. Plan discussed with: Patient My Orders Orders - JOSEPH FREITAS MD Procedure Category Date Status Time Pt Request For Service PT 11/23/24 Logged 12:19 Date of Service: Nov 24, 2024 Billing Provider: JOSEPH FREITAS MD Common Visit Codes: [id number] INP/OBS CARE(HIGH) JOSEPH FREITAS MD Nov 24, 2024 11:46
[2024-11-25] VITALS (10 sets, daily range): BP systolic 138–170; BP diastolic 68–107; PULSE 52–70; RESP 17–20; TEMP 96.6–98; O2SAT 98–99
--- NOTE | 2024-11-25 07:20 | DVHPN2 ---
Progress Note - Dictate Date Seen: Nov 25, 2024 Medical Necessity Reason Pt with a Central, PICC or Fol: No vital signs Vital Sign Date Time Temp Pulse Resp B/P (MAP) Pulse Ox O2 Delivery O2 Flow Rate FiO2 11/25/24 05:00 97.7 57 18 146/76 (99) 99 97.7 11/24/24 20:00 Nasal Cannula* 2 28 Total Intake and Output 11/24/24 11/24/24 11/25/24 15:00 23:00 07:00 Intake Total 600 ml 500 ml Balance 600 ml 500 ml medications Current Medications Medications Dose Ordered Sig/Aparna Route Start Time Stop Time Status Last Admin Dose Admin Morphine Sulfate 2 mg Q4HPRN PRN IV 11/19/24 17:30 11/20/24 05:40 2 MG Morphine Sulfate 2 mg Q30MIN PRN IV 11/19/24 20:15 11/19/24 23:47 2 MG Ondansetron HCl 4 mg Q6HP PRN IV 11/19/24 20:15 11/23/24 15:26 4 MG Amlodipine Besylate 5 mg DAILY PO 11/20/24 10:00 11/24/24 10:42 5 MG Hydralazine HCl 10 mg Q6HP PRN IV 11/19/24 22:30 Aspirin 81 mg DAILY PO 11/20/24 10:00 11/24/24 10:52 81 MG Sodium Chloride 10 ml Q8HR IV 11/20/24 06:00 11/25/24 05:25 10 ML Docusate Sodium 100 mg BIDPRN PRN PO 11/19/24 22:30 11/21/24 08:59 100 MG Acetaminophen 650 mg Q6HP PRN PO 11/19/24 22:30 11/25/24 06:16 650 MG Nitroglycerin 0.4 mg Q5MINP PRN SL 11/19/24 22:30 Pantoprazole Sodium 40 mg DAILY IV 11/20/24 10:00 11/24/24 10:39 40 MG Sodium Chloride 1,000 ml @ 100 mls/hr Q10H IV 11/20/24 08:45 11/25/24 06:22 100 MLS/HR Atorvastatin Calcium 80 mg HS PO 11/20/24 22:00 11/24/24 20:53 80 MG Acetaminophen/ Hydrocodone Bitart 1 tab Q6HP PRN PO 11/21/24 12:45 11/24/24 13:50 1 TAB Carvedilol 3.125 mg Q12HR PO 11/22/24 22:00 11/24/24 20:53 3.125 MG Spironolactone 25 mg DAILY PO 11/23/24 10:00 11/24/24 10:40 25 MG Clopidogrel Bisulfate 75 mg DAILY PO 11/23/24 10:00 11/24/24 10:42 75 MG Enoxaparin Sodium 60 mg Q12HR@0500,1700 SC 11/23/24 05:00 11/25/24 05:24 60 MG Albuterol 1.25 mg Q6HP PRN NEB 11/23/24 18:30 laboratory and microbiology Laboratory Tests 11/24/24 09:27 Test 11/24/24 09:27 Range/Units Serum Glucose 125 H 74-106 mg/dL Assessment/Plan Complains of dysuria Patient is a 84-year-old female who presented to the hospital with chest discomfort. She mentions that she was at the pain management and when driving back home started to feel chest discomfort. Later she decided to come to the hospital. Cardiology is involved for cardiac aspects of care. Patient is known to our practice from outside. Not in acute distress. No JVD. Mucosa is pink and wet. No carotid bruit. Scattered rhonchi in the lungs is heard. Not using accessory muscles of breathing. Cardiac: Regular, no thrill/gallop. Abdomen is soft. Bowel sound is positive. No tenderness. Extremities do not reveal edema. Dorsalis pedis 2+ bilateral Past medical history includes hypertension, hyperlipidemia, asthma, neuropathy, history of mild mitral valve prolapse, CKD, status post right hip replacement and history of lumbar stenosis. Nuclear stress test (performed in the office) in February 2024 revealed scar. Echocardiogram (performed in the office) of December 2023 had revealed preserved ejection fraction with questionable mild mitral valve prolapse and [id number] mitral regurgitation Creatinine: 1.37 - 1.35 - 1.20 - 1.09 Potassium: 3.3 - 4.3 - 3.9 - 3.3 Troponin (high sensitive): 22 - 97- 1279 - 5971 - 0072 - 9657 TSH: 0.71 Chest x-ray revealed: IMPRESSION: 1. No evidence of acute disease. EKG revealed sinus rhythm with old anterior HI Echocardiogram revealed: Left ventricle: Left ventricular systolic function was around 35%. Anterior/anteroseptal/apical hypokinesia was seen. Compatible with ischemic cardiomyopathy. Right ventricle is normal-sized with normal systolic function. Left atrium was mildly dilated. Right atrium was normal-sized. Aortic valve was trileaflet. There was no aortic stenosis. There was trace aortic insufficiency. There was mild mitral regurgitation. There was trace pulmonary valve insufficiency. There was trace tricuspid regurgitation. Right ventricular systolic pressure was assessed normal at 31 mm Hg. IVC was normal- sized with normal respiratory variation. There was no pericardial effusion. LHC revealed: Diagnosis: Patent LAD/LCX/ramus intermedius/RCA. 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 Troponin has been increasing. Diagnosis and non-STEMI. Chest pain Non-STEMI Hypertension Hyperlipidemia CKD Cardiac suggestion for management: Manage on telemetry Follow-up electrolytes and kidney function tests and correct abnormalities Lipitor Lovenox for now Optimized medical therapy Dual antiplatelet therapy (On Aspirin/Plavix) Lifestyle and risk factor modifications GDMT for systolic heart failure. Patient is allergic to Valsartan and Entrersto cannot be started. She herself mentions allergy to Lisinopril also. U/A and U/C, then you can consider antibiotic for UTI Further evaluation and management depends on the above and clinical course A total of 55 minutes was spent reviewing the patient record, examining the patient, making a diagnostic and therapeutic plan, discussing this plan with medical personnel, following up on diagnostic studies and following the patient for clinical stability excluding any and all procedures. At least 50% of this time was spent in direct, [id number] contact. Thank you for allowing me to participate in this patient's care. Further recommendations will depend on patient's clinical course. Please do not hesitate to contact me if you have any questions or concerns. This medical document was created using electronic medical record system with [employer] computerized dictation system. Although this document has been carefully reviewed, there may still be some phonetic and typographical errors. These areas are purely typographical due to the imperfection of the software programs, and do not reflect any compromise in the patient's medical care. Dietary Evaluation Review Comments: Cardiac diet Encourage increase physical activity Expected Outcomes/Goals: Improved overall health and physcial strength Plan discussed with: Patient, Other (nurse ) GAMA FERRO MD Nov 25, 2024 07:20
[2024-11-25 11:14] LABS: Urine Protein, UAD Negative (Negative)
--- NOTE | 2024-11-25 11:23 | DVHPN2 ---
Reviewed: Care Plan, H&P, Labs, Medications, Previous Orders, Radiology Changes from previous H/P or p: No Changes Eyes: No Pain, No Vision change, No Conjunctivae inflammation, No Eyelid inflammation, No Other, No Redness ENT: No Ear pain, No Ear discharge, No Nose pain, No Nose discharge, No Nose congestion, No Mouth pain, No Mouth swelling, No Throat pain, No Throat swelling, No Other Cardiovascular: Chest Pain; No Palpitations, No Orthopnea, No Paroxysmal Noc. Dyspnea, No Edema, No Lt Headedness, No Other Respiratory: No Cough, No Dry, No Shortness of breath, No SOB with excertion, No Wheezing, No Hemoptysis, No Pleuritic Pain, No Sputum, No Other Gastrointestinal: Nausea; No Vomiting, No Abdominal Pain, No Diarrhea, No Constipation, No Melena, No Hematochezia, No Other Genitourinary: No Dysuria, No Frequency, No Incontinence, No Hematuria, No Retention, No Other Musculoskeletal: No other, No neck pain, No shoulder pain, No arm pain, No back pain, No hand pain, No leg pain, No foot pain Skin: No Rash, No Lesions, No Jaundice, No Bruising, No Other Objective Vitals Vital Signs Date Time Temp Pulse Resp B/P (MAP) Pulse Ox O2 Delivery O2 Flow Rate FiO2 11/25/24 10:05 65 161/92 11/25/24 09:22 98 Nasal Cannula* 2 28 11/25/24 08:52 97.5 19 97.5 Intake/Output Intake and Output 11/25/24 07:00 Intake Total 1100 ml Balance 1100 ml Intake Oral 1100 ml # Voids 7 # Bowel Movements 2 Medications Current Medications Medications Dose Ordered Sig/Aparna Route Start Time Stop Time Status Last Admin Dose Admin Morphine Sulfate 2 mg Q4HPRN PRN IV 11/19/24 17:30 11/20/24 05:40 2 MG Morphine Sulfate 2 mg Q30MIN PRN IV 11/19/24 20:15 11/19/24 23:47 2 MG Ondansetron HCl 4 mg Q6HP PRN IV 11/19/24 20:15 11/23/24 15:26 4 MG Amlodipine Besylate 5 mg DAILY PO 11/20/24 10:00 11/25/24 10:04 5 MG Hydralazine HCl 10 mg Q6HP PRN IV 11/19/24 22:30 Aspirin 81 mg DAILY PO 11/20/24 10:00 11/25/24 10:03 81 MG Sodium Chloride 10 ml Q8HR IV 11/20/24 06:00 11/25/24 05:25 10 ML Docusate Sodium 100 mg BIDPRN PRN PO 11/19/24 22:30 11/21/24 08:59 100 MG Acetaminophen 650 mg Q6HP PRN PO 11/19/24 22:30 11/25/24 06:16 650 MG Nitroglycerin 0.4 mg Q5MINP PRN SL 11/19/24 22:30 Pantoprazole Sodium 40 mg DAILY IV 11/20/24 10:00 11/25/24 10:02 40 MG Sodium Chloride 1,000 ml @ 100 mls/hr Q10H IV 11/20/24 08:45 11/25/24 06:22 100 MLS/HR Atorvastatin Calcium 80 mg HS PO 11/20/24 22:00 11/24/24 20:53 80 MG Acetaminophen/ Hydrocodone Bitart 1 tab Q6HP PRN PO 11/21/24 12:45 11/25/24 10:03 1 TAB Carvedilol 3.125 mg Q12HR PO 11/22/24 22:00 11/25/24 10:05 3.125 MG Spironolactone 25 mg DAILY PO 11/23/24 10:00 11/25/24 10:04 25 MG Clopidogrel Bisulfate 75 mg DAILY PO 11/23/24 10:00 11/25/24 10:04 75 MG Enoxaparin Sodium 60 mg Q12HR@0500,1700 SC 11/23/24 05:00 11/25/24 05:24 60 MG Albuterol 1.25 mg Q6HP PRN NEB 11/23/24 18:30 Laboratory Results Laboratory Tests 11/24/24 09:27 Urinalysis Test 11/25/24 09:15 Urine Color Colorless (Yellow) Urine Clarity Clear (Clear) Urine pH 7.5 (5.0-9.0) Urine Specific [place] 1.004 (1.001-1.035) Urine Protein Negative (Negative) Urine Ketones Negative (Negative) Urine Blood Negative /uL (Negative) Urine Nitrite Negative (Negative) Urine Bilirubin Negative (Negative) Urine Urobilinogen Normal mg/dL (Negative) Urine Leukocyte Esterase Negative /uL (Negative) Urine RBC <1 /hpf (0 - 4) Urine Microscopic WBC < 1 /HPF (0-5) Urine Squamous Epithelial Cells None seen /hpf (<5) Urine Bacteria None seen /hpf (None Seen) Urine Glucose Normal mg/dL (Normal) Labs and/or images reviewed: Labs reviewed by me, Image(s) reviewed by me Assessment/Plan Assessment/Plan Acute chest pain secondary to coronary artery disease: Heparin drip treatment per ACS protocol Status Post left heart catheterization by Dr. 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 Denny Patient lives with her son Time Spent 55 minutes Advanced care planning time 20 minutes Patient is full code New PCP DR Nascimento Daughter [facility] [phone] bedside. Patient lives with her daughter. Dysuria with chills: Possible UTI urinalysis, urine cultures, Rocephin IV daily,.pyridium Plan discussed with: Patient My Orders Orders - JOSEPH FREITAS MD Procedure Category Date Status Time Urine Bacterial ELADIA 11/25/24 Transmitted Culture 11:13 Ceftriaxone Ivpb PHA 11/26/24 Transmitted Rocephin 09:00 Ceftriaxone Ivpb PHA 11/25/24 Transmitted Rocephin 11:15 Phenazopyridine Hcl PHA 11/25/24 Transmitted Tablet (Pyridium Tab 12:00 Date of Service: Nov 25, 2024 Billing Provider: JOSEPH FREITAS MD Common Visit Codes: [id number] INP/OBS CARE(HIGH) JOSEPH FREITAS MD Nov 25, 2024 11:23
[2024-11-25] MEDS: PHENAZOPYRIDINE HCL 100 MG TAB PO SCH (12:56)
[2024-11-26] VITALS (9 sets, daily range): BP systolic 122–151; BP diastolic 72–111; PULSE 45–75; RESP 16–17; TEMP 97.4–98.1; O2SAT 92–99
--- NOTE | 2024-11-26 06:27 | DVHPN2 ---
Progress Note - Dictate Date Seen: Nov 26, 2024 Medical Necessity Reason Pt with a Central, PICC or Fol: No vital signs Vital Sign Date Time Temp Pulse Resp B/P (MAP) Pulse Ox O2 Delivery O2 Flow Rate FiO2 11/26/24 05:00 98.0 45 16 144/76 (98) 95 98.0 11/25/24 20:00 Room Air* 0 21 Total Intake and Output 11/25/24 11/25/24 11/26/24 15:00 23:00 07:00 Intake Total 1700 ml 400 ml Balance 1700 ml 400 ml medications Current Medications Medications Dose Ordered Sig/Aparna Route Start Time Stop Time Status Last Admin Dose Admin Morphine Sulfate 2 mg Q4HPRN PRN IV 11/19/24 17:30 11/20/24 05:40 2 MG Morphine Sulfate 2 mg Q30MIN PRN IV 11/19/24 20:15 11/19/24 23:47 2 MG Ondansetron HCl 4 mg Q6HP PRN IV 11/19/24 20:15 11/23/24 15:26 4 MG Amlodipine Besylate 5 mg DAILY PO 11/20/24 10:00 11/25/24 10:04 5 MG Hydralazine HCl 10 mg Q6HP PRN IV 11/19/24 22:30 Aspirin 81 mg DAILY PO 11/20/24 10:00 11/25/24 10:03 81 MG Sodium Chloride 10 ml Q8HR IV 11/20/24 06:00 11/26/24 05:12 10 ML Docusate Sodium 100 mg BIDPRN PRN PO 11/19/24 22:30 11/21/24 08:59 100 MG Acetaminophen 650 mg Q6HP PRN PO 11/19/24 22:30 11/25/24 06:16 650 MG Nitroglycerin 0.4 mg Q5MINP PRN SL 11/19/24 22:30 Pantoprazole Sodium 40 mg DAILY IV 11/20/24 10:00 11/25/24 10:02 40 MG Sodium Chloride 1,000 ml @ 100 mls/hr Q10H IV 11/20/24 08:45 11/26/24 05:12 100 MLS/HR Atorvastatin Calcium 80 mg HS PO 11/20/24 22:00 11/25/24 21:19 80 MG Acetaminophen/ Hydrocodone Bitart 1 tab Q6HP PRN PO 11/21/24 12:45 11/25/24 20:02 1 TAB Carvedilol 3.125 mg Q12HR PO 11/22/24 22:00 11/25/24 21:23 3.125 MG Spironolactone 25 mg DAILY PO 11/23/24 10:00 11/25/24 10:04 25 MG Clopidogrel Bisulfate 75 mg DAILY PO 11/23/24 10:00 11/25/24 10:04 75 MG Enoxaparin Sodium 60 mg Q12HR@0500,1700 SC 11/23/24 05:00 11/26/24 05:12 60 MG Albuterol 1.25 mg Q6HP PRN NEB 11/23/24 18:30 Ceftriaxone Sodium 50 ml @ 100 mls/hr DAILY@09 IV 11/26/24 09:00 Phenazopyridine HCl 200 mg TIDWM PO 11/25/24 12:00 11/27/24 08:01 11/25/24 18:18 200 MG laboratory and microbiology Laboratory Tests 11/24/24 09:27 Test 11/24/24 09:27 Range/Units Serum Glucose 125 H 74-106 mg/dL Assessment/Plan No chest pain Patient is a 84-year-old female who presented to the hospital with chest discomfort. She mentions that she was at the pain management and when driving back home started to feel chest discomfort. Later she decided to come to the hospital. Cardiology is involved for cardiac aspects of care. Patient is known to our practice from outside. Not in acute distress. No JVD. Mucosa is pink and wet. No carotid bruit. Scattered rhonchi in the lungs is heard. Not using accessory muscles of breathing. Cardiac: Regular, no thrill/gallop. Abdomen is soft. Bowel sound is positive. No tenderness. Extremities do not reveal edema. Dorsalis pedis 2+ bilateral Past medical history includes hypertension, hyperlipidemia, asthma, neuropathy, history of mild mitral valve prolapse, CKD, status post right hip replacement and history of lumbar stenosis. Nuclear stress test (performed in the office) in February 2024 revealed scar. Echocardiogram (performed in the office) of December 2023 had revealed preserved ejection fraction with questionable mild mitral valve prolapse and [id number] mitral regurgitation Creatinine: 1.37 - 1.35 - 1.20 - 1.09 Potassium: 3.3 - 4.3 - 3.9 - 3.3 Troponin (high sensitive): 22 - 97- 2190 - 8131 - 4019 - 2931 TSH: 0.71 Chest x-ray revealed: IMPRESSION: 1. No evidence of acute disease. EKG revealed sinus rhythm with old anterior [place] Echocardiogram revealed: Left ventricle: Left ventricular systolic function was around 35%. Anterior/anteroseptal/apical hypokinesia was seen. Compatible with ischemic cardiomyopathy. Right ventricle is normal-sized with normal systolic function. Left atrium was mildly dilated. Right atrium was normal-sized. Aortic valve was trileaflet. There was no aortic stenosis. There was trace aortic insufficiency. There was mild mitral regurgitation. There was trace pulmonary valve insufficiency. There was trace tricuspid regurgitation. Right ventricular systolic pressure was assessed normal at 31 mm Hg. IVC was normal- sized with normal respiratory variation. There was no pericardial effusion. LHC revealed: Diagnosis: Patent LAD/LCX/ramus intermedius/RCA. 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 Troponin has been increasing. Diagnosis and non-STEMI. Chest pain Non-STEMI Hypertension Hyperlipidemia CKD Cardiac suggestion for management: Manage on telemetry Follow-up electrolytes and kidney function tests and correct abnormalities Lipitor Lovenox for now Optimized medical therapy Dual antiplatelet therapy (On Aspirin/Plavix) Lifestyle and risk factor modifications GDMT for systolic heart failure. Patient is allergic to Valsartan and Entrersto cannot be started. She herself mentions allergy to Lisinopril also. Further evaluation and management depends on the above and clinical course A total of 55 minutes was spent reviewing the patient record, examining the patient, making a diagnostic and therapeutic plan, discussing this plan with medical personnel, following up on diagnostic studies and following the patient for clinical stability excluding any and all procedures. At least 50% of this time was spent in direct, [id number] contact. Thank you for allowing me to participate in this patient's care. Further recommendations will depend on patient's clinical course. Please do not hesitate to contact me if you have any questions or concerns. This medical document was created using electronic medical record system with [employer] computerized dictation system. Although this document has been carefully reviewed, there may still be some phonetic and typographical errors. These areas are purely typographical due to the imperfection of the software programs, and do not reflect any compromise in the patient's medical care. Dietary Evaluation Review Comments: Cardiac diet Encourage increase physical activity Expected Outcomes/Goals: Improved overall health and physcial strength Plan discussed with: Patient, Other (nurse) GAMA FERRO MD Nov 26, 2024 06:27
--- NOTE | 2024-11-26 10:37 | DVHPN2 ---
Reviewed: Care Plan, H&P, Labs, Medications, Previous Orders, Radiology Changes from previous H/P or p: No Changes Eyes: No Pain, No Vision change, No Conjunctivae inflammation, No Eyelid inflammation, No Other, No Redness ENT: No Ear pain, No Ear discharge, No Nose pain, No Nose discharge, No Nose congestion, No Mouth pain, No Mouth swelling, No Throat pain, No Throat swelling, No Other Cardiovascular: Chest Pain; No Palpitations, No Orthopnea, No Paroxysmal Noc. Dyspnea, No Edema, No Lt Headedness, No Other Respiratory: No Cough, No Dry, No Shortness of breath, No SOB with excertion, No Wheezing, No Hemoptysis, No Pleuritic Pain, No Sputum, No Other Gastrointestinal: Nausea; No Vomiting, No Abdominal Pain, No Diarrhea, No Constipation, No Melena, No Hematochezia, No Other Genitourinary: No Dysuria, No Frequency, No Incontinence, No Hematuria, No Retention, No Other Musculoskeletal: No other, No neck pain, No shoulder pain, No arm pain, No back pain, No hand pain, No leg pain, No foot pain Skin: No Rash, No Lesions, No Jaundice, No Bruising, No Other Objective Vitals Vital Signs Date Time Temp Pulse Resp B/P (MAP) Pulse Ox O2 Delivery O2 Flow Rate FiO2 11/26/24 09:00 97.4 53 16 138/74 (95) 99 97.4 11/26/24 08:00 Nasal Cannula* 2 28 Intake/Output Intake and Output 11/26/24 07:00 Intake Total 2100 ml Balance 2100 ml Intake Oral 1200 ml IV Total 900 ml # Voids 14 Medications Current Medications Medications Dose Ordered Sig/Aparna Route Start Time Stop Time Status Last Admin Dose Admin Morphine Sulfate 2 mg Q4HPRN PRN IV 11/19/24 17:30 11/20/24 05:40 2 MG Morphine Sulfate 2 mg Q30MIN PRN IV 11/19/24 20:15 11/19/24 23:47 2 MG Ondansetron HCl 4 mg Q6HP PRN IV 11/19/24 20:15 11/23/24 15:26 4 MG Amlodipine Besylate 5 mg DAILY PO 11/20/24 10:00 11/25/24 10:04 5 MG Hydralazine HCl 10 mg Q6HP PRN IV 11/19/24 22:30 Aspirin 81 mg DAILY PO 11/20/24 10:00 11/25/24 10:03 81 MG Sodium Chloride 10 ml Q8HR IV 11/20/24 06:00 11/26/24 05:12 10 ML Docusate Sodium 100 mg BIDPRN PRN PO 11/19/24 22:30 11/21/24 08:59 100 MG Acetaminophen 650 mg Q6HP PRN PO 11/19/24 22:30 11/25/24 06:16 650 MG Nitroglycerin 0.4 mg Q5MINP PRN SL 11/19/24 22:30 Pantoprazole Sodium 40 mg DAILY IV 11/20/24 10:00 11/25/24 10:02 40 MG Sodium Chloride 1,000 ml @ 100 mls/hr Q10H IV 11/20/24 08:45 11/26/24 05:12 100 MLS/HR Atorvastatin Calcium 80 mg HS PO 11/20/24 22:00 11/25/24 21:19 80 MG Acetaminophen/ Hydrocodone Bitart 1 tab Q6HP PRN PO 11/21/24 12:45 11/25/24 20:02 1 TAB Carvedilol 3.125 mg Q12HR PO 11/22/24 22:00 11/25/24 21:23 3.125 MG Spironolactone 25 mg DAILY PO 11/23/24 10:00 11/25/24 10:04 25 MG Clopidogrel Bisulfate 75 mg DAILY PO 11/23/24 10:00 11/25/24 10:04 75 MG Enoxaparin Sodium 60 mg Q12HR@0500,1700 SC 11/23/24 05:00 11/26/24 05:12 60 MG Albuterol 1.25 mg Q6HP PRN NEB 11/23/24 18:30 Ceftriaxone Sodium 50 ml @ 100 mls/hr DAILY@09 IV 11/26/24 09:00 11/26/24 08:58 100 MLS/HR Phenazopyridine HCl 200 mg TIDWM PO 11/25/24 12:00 11/27/24 08:01 11/26/24 08:57 200 MG Laboratory Results Laboratory Tests 11/24/24 09:27 Urinalysis Test 11/25/24 09:15 Urine Color Colorless (Yellow) Urine Clarity Clear (Clear) Urine pH 7.5 (5.0-9.0) Urine Specific [place] 1.004 (1.001-1.035) Urine Protein Negative (Negative) Urine Ketones Negative (Negative) Urine Blood Negative /uL (Negative) Urine Nitrite Negative (Negative) Urine Bilirubin Negative (Negative) Urine Urobilinogen Normal mg/dL (Negative) Urine Leukocyte Esterase Negative /uL (Negative) Urine RBC <1 /hpf (0 - 4) Urine Microscopic WBC < 1 /HPF (0-5) Urine Squamous Epithelial Cells None seen /hpf (<5) Urine Bacteria None seen /hpf (None Seen) Urine Glucose Normal mg/dL (Normal) Labs and/or images reviewed: Labs reviewed by me, Image(s) reviewed by me Assessment/Plan Assessment/Plan Acute chest pain secondary to coronary artery disease: Heparin drip treatment per ACS protocol Status Post left heart catheterization by Dr. 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 Denny Patient lives with her son Time Spent 55 minutes Advanced care planning time 20 minutes Patient is full code New PCP DR Nascimento Daughter Gerda [phone] bedside. Patient lives with her daughter. Dr. Le advised to keep the patient till Mon Dysuria with chills: Possible UTI urinalysis, urine cultures, Rocephin IV daily,.pyridium Plan discussed with: Patient My Orders Orders - JOSEPH FREITAS MD Procedure Category Date Status Time Urine Bacterial ELADIA 11/25/24 In Process Culture 11:13 Ceftriaxone 1gm/50ml PHA 11/26/24 In Process (Rocephin) 09:00 Phenazopyridine Hcl PHA 11/25/24 In Process Tablet (Pyridium Tab 12:00 Date of Service: Nov 26, 2024 Billing Provider: JOSEPH FREITAS MD Common Visit Codes: [id number] INP/OBS CARE(HIGH) JOSEPH FREITAS MD Nov 26, 2024 10:37
[2024-11-27] VITALS (11 sets, daily range): BP systolic 119–152; BP diastolic 41–82; PULSE 51–67; RESP 16–18; TEMP 97.5–98.2; O2SAT 92–98
--- NOTE | 2024-11-27 10:22 | DVHPN2 ---
Reviewed: Care Plan, H&P, Labs, Medications, Previous Orders, Radiology Changes from previous H/P or p: No Changes Eyes: No Pain, No Vision change, No Conjunctivae inflammation, No Eyelid inflammation, No Other, No Redness ENT: No Ear pain, No Ear discharge, No Nose pain, No Nose discharge, No Nose congestion, No Mouth pain, No Mouth swelling, No Throat pain, No Throat swelling, No Other Cardiovascular: Chest Pain Respiratory: No Cough, No Dry, No Shortness of breath, No SOB with excertion, No Wheezing, No Hemoptysis, No Pleuritic Pain, No Sputum, No Other Gastrointestinal: Nausea Genitourinary: No Dysuria, No Frequency, No Incontinence, No Hematuria, No Retention, No Other Musculoskeletal: No other, No neck pain, No shoulder pain, No arm pain, No back pain, No hand pain, No leg pain, No foot pain Skin: No Rash, No Lesions, No Jaundice, No Bruising, No Other Objective Vitals Vital Signs Date Time Temp Pulse Resp B/P (MAP) Pulse Ox O2 Delivery O2 Flow Rate FiO2 11/27/24 09:26 57 152/72 11/27/24 09:00 97.5 18 98 97.5 11/27/24 08:15 Room Air* 0 21 Intake/Output Intake and Output 11/27/24 07:00 Intake Total 3580 ml Balance 3580 ml Intake Oral 2530 ml IV Total 1050 ml # Voids 7 Medications Current Medications Medications Dose Ordered Sig/Aparna Route Start Time Stop Time Status Last Admin Dose Admin Morphine Sulfate 2 mg Q4HPRN PRN IV 11/19/24 17:30 11/20/24 05:40 2 MG Morphine Sulfate 2 mg Q30MIN PRN IV 11/19/24 20:15 11/19/24 23:47 2 MG Ondansetron HCl 4 mg Q6HP PRN IV 11/19/24 20:15 11/23/24 15:26 4 MG Amlodipine Besylate 5 mg DAILY PO 11/20/24 10:00 11/27/24 09:26 5 MG Hydralazine HCl 10 mg Q6HP PRN IV 11/19/24 22:30 Aspirin 81 mg DAILY PO 11/20/24 10:00 11/27/24 09:25 81 MG Sodium Chloride 10 ml Q8HR IV 11/20/24 06:00 11/27/24 05:16 10 ML Docusate Sodium 100 mg BIDPRN PRN PO 11/19/24 22:30 11/26/24 21:18 100 MG Acetaminophen 650 mg Q6HP PRN PO 11/19/24 22:30 11/25/24 06:16 650 MG Nitroglycerin 0.4 mg Q5MINP PRN SL 11/19/24 22:30 Pantoprazole Sodium 40 mg DAILY IV 11/20/24 10:00 11/27/24 09:25 40 MG Sodium Chloride 1,000 ml @ 100 mls/hr Q10H IV 11/20/24 08:45 11/27/24 09:27 100 MLS/HR Atorvastatin Calcium 80 mg HS PO 11/20/24 22:00 11/26/24 21:18 80 MG Acetaminophen/ Hydrocodone Bitart 1 tab Q6HP PRN PO 11/21/24 12:45 11/25/24 20:02 1 TAB Carvedilol 3.125 mg Q12HR PO 11/22/24 22:00 11/27/24 09:26 3.125 MG Spironolactone 25 mg DAILY PO 11/23/24 10:00 11/27/24 09:25 25 MG Clopidogrel Bisulfate 75 mg DAILY PO 11/23/24 10:00 11/27/24 09:26 75 MG Enoxaparin Sodium 60 mg Q12HR@0500,1700 SC 11/23/24 05:00 11/27/24 05:15 60 MG Albuterol 1.25 mg Q6HP PRN NEB 11/23/24 18:30 Ceftriaxone Sodium 50 ml @ 100 mls/hr DAILY@09 IV 11/26/24 09:00 11/27/24 08:20 100 MLS/HR Laboratory Results Laboratory Tests 11/24/24 09:27 Urinalysis Test 11/25/24 09:15 Urine Color Colorless (Yellow) Urine Clarity Clear (Clear) Urine pH 7.5 (5.0-9.0) Urine Specific [place] 1.004 (1.001-1.035) Urine Protein Negative (Negative) Urine Ketones Negative (Negative) Urine Blood Negative /uL (Negative) Urine Nitrite Negative (Negative) Urine Bilirubin Negative (Negative) Urine Urobilinogen Normal mg/dL (Negative) Urine Leukocyte Esterase Negative /uL (Negative) Urine RBC <1 /hpf (0 - 4) Urine Microscopic WBC < 1 /HPF (0-5) Urine Squamous Epithelial Cells None seen /hpf (<5) Urine Bacteria None seen /hpf (None Seen) Urine Glucose Normal mg/dL (Normal) Microbiology Microbiology Date/Time Source Procedure Growth Status 11/25/24 09:15 Urine - Midstream Clean Catch Urine Culture - Preliminary Resulted Labs and/or images reviewed: Labs reviewed by me, Image(s) reviewed by me Assessment/Plan Assessment/Plan Acute chest pain secondary to coronary artery disease: Heparin drip treatment per ACS protocol Status Post left heart catheterization by Dr. 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 Denny Patient lives with her son Time Spent 55 minutes Advanced care planning time 20 minutes Patient is full code New PCP DR Nascimento Daughter Gerda [phone] bedside. Patient lives with her daughter. Dr. Le advised to keep the patient till Fri Dysuria with chills: Urine cultures contaminated, continue Rocephin IV daily, Will DC home on Friday Plan discussed with: Patient Date of Service: Nov 27, 2024 Billing Provider: JOSEPH FREITAS MD Common Visit Codes: [id number] INP/OBS CARE(HIGH) JOSEPH FREITAS MD Nov 27, 2024 10:22
--- NOTE | 2024-11-27 20:12 | DVHPN2 ---
Progress Note - Dictate Date Seen: Nov 27, 2024 Medical Necessity Reason Pt with a Central, PICC or Fol: No Subjective Patient seen and examined at the bedside within Telemetry. Vital signs stable. Chart reviewed. Patient's medications, allergies, past medical, surgical, social and family histories were obtained and reviewed as appropriate. vital signs Vital Sign Date Time Temp Pulse Resp B/P (MAP) Pulse Ox O2 Delivery O2 Flow Rate FiO2 11/27/24 17:00 97.6 58 16 149/79 (102) 92 97.6 11/27/24 08:15 Room Air* 0 21 Total Intake and Output 11/26/24 11/26/24 11/27/24 15:00 23:00 07:00 Intake Total 50 ml 2380 ml 1150 ml Balance 50 ml 2380 ml 1150 ml medications Current Medications Medications Dose Ordered Sig/Aparna Route Start Time Stop Time Status Last Admin Dose Admin Morphine Sulfate 2 mg Q4HPRN PRN IV 11/19/24 17:30 11/20/24 05:40 2 MG Morphine Sulfate 2 mg Q30MIN PRN IV 11/19/24 20:15 11/19/24 23:47 2 MG Ondansetron HCl 4 mg Q6HP PRN IV 11/19/24 20:15 11/23/24 15:26 4 MG Amlodipine Besylate 5 mg DAILY PO 11/20/24 10:00 11/27/24 09:26 5 MG Hydralazine HCl 10 mg Q6HP PRN IV 11/19/24 22:30 Aspirin 81 mg DAILY PO 11/20/24 10:00 11/27/24 09:25 81 MG Sodium Chloride 10 ml Q8HR IV 11/20/24 06:00 11/27/24 13:02 10 ML Docusate Sodium 100 mg BIDPRN PRN PO 11/19/24 22:30 11/26/24 21:18 100 MG Acetaminophen 650 mg Q6HP PRN PO 11/19/24 22:30 11/25/24 06:16 650 MG Nitroglycerin 0.4 mg Q5MINP PRN SL 11/19/24 22:30 Pantoprazole Sodium 40 mg DAILY IV 11/20/24 10:00 11/27/24 09:25 40 MG Sodium Chloride 1,000 ml @ 100 mls/hr Q10H IV 11/20/24 08:45 11/27/24 09:27 100 MLS/HR Atorvastatin Calcium 80 mg HS PO 11/20/24 22:00 11/26/24 21:18 80 MG Acetaminophen/ Hydrocodone Bitart 1 tab Q6HP PRN PO 11/21/24 12:45 11/25/24 20:02 1 TAB Carvedilol 3.125 mg Q12HR PO 11/22/24 22:00 11/27/24 09:26 3.125 MG Spironolactone 25 mg DAILY PO 11/23/24 10:00 11/27/24 09:25 25 MG Clopidogrel Bisulfate 75 mg DAILY PO 11/23/24 10:00 11/27/24 09:26 75 MG Enoxaparin Sodium 60 mg Q12HR@0500,1700 SC 11/23/24 05:00 11/27/24 05:15 60 MG Albuterol 1.25 mg Q6HP PRN NEB 11/23/24 18:30 Ceftriaxone Sodium 50 ml @ 100 mls/hr DAILY@09 IV 11/26/24 09:00 11/27/24 08:20 100 MLS/HR objective Review of Systems: A 14-point review of systems is negative unless otherwise noted in HPI Physical Exam: Heart: S1 and S2 present. The patient is in sinus rhythm. Lungs: Clear to aucultation Abdomen: Benign. Extremities: Distal pulses palpable, 2+. No evidence for peripheral edema laboratory and microbiology Laboratory Tests 11/24/24 09:27 Test 11/24/24 09:27 Range/Units Serum Glucose 125 H 74-106 mg/dL Assessment/Plan No chest pain Patient is a 84-year-old female who presented to the hospital with chest discomfort. She mentions that she was at the pain management and when driving back home started to feel chest discomfort. Later she decided to come to the hospital. Cardiology is involved for cardiac aspects of care. Patient is known to our practice from outside. Not in acute distress. No JVD. Mucosa is pink and wet. No carotid bruit. Scattered rhonchi in the lungs is heard. Not using accessory muscles of breathing. Cardiac: Regular, no thrill/gallop. Abdomen is soft. Bowel sound is positive. No tenderness. Extremities do not reveal edema. Dorsalis pedis 2+ bilateral Past medical history includes hypertension, hyperlipidemia, asthma, neuropathy, history of mild mitral valve prolapse, CKD, status post right hip replacement and history of lumbar stenosis. Nuclear stress test (performed in the office) in February 2024 revealed scar. Echocardiogram (performed in the office) of December 2023 had revealed preserved ejection fraction with questionable mild mitral valve prolapse and [id number] mitral regurgitation Creatinine: 1.37 - 1.35 - 1.20 - 1.09 Potassium: 3.3 - 4.3 - 3.9 - 3.3 Troponin (high sensitive): 22 - 97- 6129 - 3611 - 5747 - 2931 TSH: 0.71 Chest x-ray revealed: IMPRESSION: 1. No evidence of acute disease. EKG revealed sinus rhythm with old anterior [place] Echocardiogram revealed: Left ventricle: Left ventricular systolic function was around 35%. Anterior/anteroseptal/apical hypokinesia was seen. Compatible with ischemic cardiomyopathy. Right ventricle is normal-sized with normal systolic function. Left atrium was mildly dilated. Right atrium was normal-sized. Aortic valve was trileaflet. There was no aortic stenosis. There was trace aortic insufficiency. There was mild mitral regurgitation. There was trace pulmonary valve insufficiency. There was trace tricuspid regurgitation. Right ventricular systolic pressure was assessed normal at 31 mm Hg. IVC was normal- sized with normal respiratory variation. There was no pericardial effusion. LHC revealed: Diagnosis: Patent LAD/LCX/ramus intermedius/RCA. 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 Troponin has been increasing. Diagnosis and non-STEMI. Chest pain Non-STEMI Hypertension Hyperlipidemia CKD Cardiac suggestion for management: Manage on telemetry Follow-up electrolytes and kidney function tests and correct abnormalities Lipitor Lovenox for now Optimized medical therapy Dual antiplatelet therapy (On Aspirin/Plavix) Lifestyle and risk factor modifications GDMT for systolic heart failure. Patient is allergic to Valsartan and Entrersto cannot be started. She herself mentions allergy to Lisinopril also. Proceed with close rate and rhythm surveillance Proceed with close hemodynamic surveillance Proceed with optimized blood pressure control Transfuse to sustain HGB levels above 7.0 Sustain Magnesium level greater than 2.0 Sustain Potassium level greater than 4.0 Follow up renal function and electrolytes Further evaluation and management depends on the above and clinical course Patient's status, findings, and plan of care was discussed and reviewed with supervising physician Dr. Pablo, who is in agreement with current plan of care. Plan of care discussed with and agreed upon by patient/family/Primary RN. Prognosis: Guarded Thank you for allowing me to participate in the care of this patient. Further recommendations will depend on clinical progression, hospitalist, and other consultants. Will continue to follow with Primary. If you have any questions, please do not hesitate to contact me. A total of 75 minutes was spent reviewing the patient record, examining the patient, making a diagnostic and therapeutic plan, discussing this plan with medical personnel, following up on diagnostic studies and following the patient for clinical stability excluding any and all procedures. At least 50% of this time was spent in direct, [id number] contact. Dietary Evaluation Review Comments: Cardiac diet Encourage increase physical activity Expected Outcomes/Goals: Improved overall health and physcial strength Plan discussed with: Patient CRESCENCIO BELTRAN NP Nov 27, 2024 20:12
[2024-11-28] VITALS (9 sets, daily range): BP systolic 135–154; BP diastolic 59–88; PULSE 51–66; RESP 17–19; TEMP 97.9–98.7; O2SAT 94–98
--- NOTE | 2024-11-28 11:30 | DVHPN2 ---
Reviewed: Care Plan, H&P, Labs, Medications, Previous Orders, Radiology Changes from previous H/P or p: No Changes Eyes: No Pain, No Vision change, No Conjunctivae inflammation, No Eyelid inflammation, No Other, No Redness ENT: No Ear pain, No Ear discharge, No Nose pain, No Nose discharge, No Nose congestion, No Mouth pain, No Mouth swelling, No Throat pain, No Throat swelling, No Other Cardiovascular: Chest Pain Respiratory: No Cough, No Dry, No Shortness of breath, No SOB with excertion, No Wheezing, No Hemoptysis, No Pleuritic Pain, No Sputum, No Other Gastrointestinal: Nausea Genitourinary: No Dysuria, No Frequency, No Incontinence, No Hematuria, No Retention, No Other Musculoskeletal: No other, No neck pain, No shoulder pain, No arm pain, No back pain, No hand pain, No leg pain, No foot pain Skin: No Rash, No Lesions, No Jaundice, No Bruising, No Other Objective Vitals Vital Signs Date Time Temp Pulse Resp B/P (MAP) Pulse Ox O2 Delivery O2 Flow Rate FiO2 11/28/24 10:16 53 121/46 11/28/24 08:34 98.7 17 96 98.7 11/28/24 08:05 Room Air* 0 21 Intake/Output Intake and Output 11/28/24 07:00 Intake Total 2700 ml Output Total 400 ml Balance 2300 ml Intake Oral 600 ml IV Total 2100 ml Output Urine Total 400 ml # Voids 4 # Bowel Movements 2 Medications Current Medications Medications Dose Ordered Sig/Aparna Route Start Time Stop Time Status Last Admin Dose Admin Morphine Sulfate 2 mg Q4HPRN PRN IV 11/19/24 17:30 11/20/24 05:40 2 MG Morphine Sulfate 2 mg Q30MIN PRN IV 11/19/24 20:15 11/19/24 23:47 2 MG Ondansetron HCl 4 mg Q6HP PRN IV 11/19/24 20:15 11/23/24 15:26 4 MG Amlodipine Besylate 5 mg DAILY PO 11/20/24 10:00 11/28/24 09:17 5 MG Hydralazine HCl 10 mg Q6HP PRN IV 11/19/24 22:30 Aspirin 81 mg DAILY PO 11/20/24 10:00 11/28/24 09:17 81 MG Sodium Chloride 10 ml Q8HR IV 11/20/24 06:00 11/28/24 05:25 10 ML Docusate Sodium 100 mg BIDPRN PRN PO 11/19/24 22:30 11/26/24 21:18 100 MG Acetaminophen 650 mg Q6HP PRN PO 11/19/24 22:30 11/27/24 21:26 650 MG Nitroglycerin 0.4 mg Q5MINP PRN SL 11/19/24 22:30 Pantoprazole Sodium 40 mg DAILY IV 11/20/24 10:00 11/28/24 09:17 40 MG Sodium Chloride 1,000 ml @ 100 mls/hr Q10H IV 11/20/24 08:45 11/28/24 06:45 100 MLS/HR Atorvastatin Calcium 80 mg HS PO 11/20/24 22:00 11/27/24 21:26 80 MG Acetaminophen/ Hydrocodone Bitart 1 tab Q6HP PRN PO 11/21/24 12:45 11/25/24 20:02 1 TAB Carvedilol 3.125 mg Q12HR PO 11/22/24 22:00 11/28/24 09:16 3.125 MG Spironolactone 25 mg DAILY PO 11/23/24 10:00 11/28/24 09:17 25 MG Clopidogrel Bisulfate 75 mg DAILY PO 11/23/24 10:00 11/28/24 09:17 75 MG Enoxaparin Sodium 60 mg Q12HR@0500,1700 SC 11/23/24 05:00 11/27/24 05:15 60 MG Albuterol 1.25 mg Q6HP PRN NEB 11/23/24 18:30 Ceftriaxone Sodium 50 ml @ 100 mls/hr DAILY@09 IV 11/26/24 09:00 11/28/24 08:18 100 MLS/HR Laboratory Results Laboratory Tests 11/24/24 09:27 Urinalysis Test 11/25/24 09:15 Urine Color Colorless (Yellow) Urine Clarity Clear (Clear) Urine pH 7.5 (5.0-9.0) Urine Specific [place] 1.004 (1.001-1.035) Urine Protein Negative (Negative) Urine Ketones Negative (Negative) Urine Blood Negative /uL (Negative) Urine Nitrite Negative (Negative) Urine Bilirubin Negative (Negative) Urine Urobilinogen Normal mg/dL (Negative) Urine Leukocyte Esterase Negative /uL (Negative) Urine RBC <1 /hpf (0 - 4) Urine Microscopic WBC < 1 /HPF (0-5) Urine Squamous Epithelial Cells None seen /hpf (<5) Urine Bacteria None seen /hpf (None Seen) Urine Glucose Normal mg/dL (Normal) Microbiology Microbiology Date/Time Source Procedure Growth Status 11/25/24 09:15 Urine - Midstream Clean Catch Urine Culture - Final Complete Labs and/or images reviewed: Labs reviewed by me, Image(s) reviewed by me Assessment/Plan Assessment/Plan Acute chest pain secondary to coronary artery disease: Heparin drip treatment per ACS protocol Status Post left heart catheterization by Dr. 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 Denny Patient lives with her son Time Spent 59 minutes Patient is full code New PCP DR Nascimento Daughter Gerda [phone] bedside. Patient lives with her daughter. Dr. Le advised to keep the patient till Mon Dysuria with chills: Urine cultures contaminated, continue Rocephin IV daily, Will DC home on Friday Plan discussed with: Patient Date of Service: Nov 28, 2024 Billing Provider: JOSEPH FREITAS MD Common Visit Codes: [id number] INP/OBS CARE(HIGH) JOSEPH FREITAS MD Nov 28, 2024 11:30
--- NOTE | 2024-11-28 12:04 | DVHPN2 ---
Progress Note - Dictate Date Seen: Nov 28, 2024 Medical Necessity Reason Pt with a Central, PICC or Fol: No Subjective Patient seen and examined at the bedside within Telemetry. Vital signs stable. Chart reviewed. She denies chest pain , shortness of breath or palpitations. Patient's medications, allergies, past medical, surgical, social and family histories were obtained and reviewed as appropriate. vital signs Vital Sign Date Time Temp Pulse Resp B/P (MAP) Pulse Ox O2 Delivery O2 Flow Rate FiO2 11/28/24 10:16 53 121/46 11/28/24 08:34 98.7 17 96 98.7 11/28/24 08:05 Room Air* 0 21 Total Intake and Output 11/27/24 11/27/24 11/28/24 15:00 23:00 07:00 Intake Total 100 ml 1000 ml 1600 ml Output Total 400 ml Balance 100 ml 1000 ml 1200 ml medications Current Medications Medications Dose Ordered Sig/Aparna Route Start Time Stop Time Status Last Admin Dose Admin Morphine Sulfate 2 mg Q4HPRN PRN IV 11/19/24 17:30 11/20/24 05:40 2 MG Morphine Sulfate 2 mg Q30MIN PRN IV 11/19/24 20:15 11/19/24 23:47 2 MG Ondansetron HCl 4 mg Q6HP PRN IV 11/19/24 20:15 11/23/24 15:26 4 MG Amlodipine Besylate 5 mg DAILY PO 11/20/24 10:00 11/28/24 09:17 5 MG Hydralazine HCl 10 mg Q6HP PRN IV 11/19/24 22:30 Aspirin 81 mg DAILY PO 11/20/24 10:00 11/28/24 09:17 81 MG Sodium Chloride 10 ml Q8HR IV 11/20/24 06:00 11/28/24 05:25 10 ML Docusate Sodium 100 mg BIDPRN PRN PO 11/19/24 22:30 11/26/24 21:18 100 MG Acetaminophen 650 mg Q6HP PRN PO 11/19/24 22:30 11/27/24 21:26 650 MG Nitroglycerin 0.4 mg Q5MINP PRN SL 11/19/24 22:30 Pantoprazole Sodium 40 mg DAILY IV 11/20/24 10:00 11/28/24 09:17 40 MG Sodium Chloride 1,000 ml @ 100 mls/hr Q10H IV 11/20/24 08:45 11/28/24 06:45 100 MLS/HR Atorvastatin Calcium 80 mg HS PO 11/20/24 22:00 11/27/24 21:26 80 MG Acetaminophen/ Hydrocodone Bitart 1 tab Q6HP PRN PO 11/21/24 12:45 11/25/24 20:02 1 TAB Carvedilol 3.125 mg Q12HR PO 11/22/24 22:00 11/28/24 09:16 3.125 MG Spironolactone 25 mg DAILY PO 11/23/24 10:00 11/28/24 09:17 25 MG Clopidogrel Bisulfate 75 mg DAILY PO 11/23/24 10:00 11/28/24 09:17 75 MG Enoxaparin Sodium 60 mg Q12HR@0500,1700 SC 11/23/24 05:00 11/27/24 05:15 60 MG Albuterol 1.25 mg Q6HP PRN NEB 11/23/24 18:30 Ceftriaxone Sodium 50 ml @ 100 mls/hr DAILY@09 IV 11/26/24 09:00 11/28/24 08:18 100 MLS/HR objective Review of Systems: A 14-point review of systems is negative unless otherwise noted in HPI Physical Exam: Heart: S1 and S2 present. The patient is in sinus rhythm. Lungs: Clear to aucultation Abdomen: Benign. Extremities: Distal pulses palpable, 2+. No evidence for peripheral edema laboratory and microbiology Laboratory Tests 11/24/24 09:27 Test 11/24/24 09:27 Range/Units Serum Glucose 125 H 74-106 mg/dL Assessment/Plan No chest pain Patient is a 84-year-old female who presented to the hospital with chest discomfort. She mentions that she was at the pain management and when driving back home started to feel chest discomfort. Later she decided to come to the hospital. Cardiology is involved for cardiac aspects of care. Patient is known to our practice from outside. Not in acute distress. No JVD. Mucosa is pink and wet. No carotid bruit. Scattered rhonchi in the lungs is heard. Not using accessory muscles of breathing. Cardiac: Regular, no thrill/gallop. Abdomen is soft. Bowel sound is positive. No tenderness. Extremities do not reveal edema. Dorsalis pedis 2+ bilateral Past medical history includes hypertension, hyperlipidemia, asthma, neuropathy, history of mild mitral valve prolapse, CKD, status post right hip replacement and history of lumbar stenosis. Nuclear stress test (performed in the office) in February 2024 revealed scar. Echocardiogram (performed in the office) of December 2023 had revealed preserved ejection fraction with questionable mild mitral valve prolapse and [id number] mitral regurgitation Creatinine: 1.37 - 1.35 - 1.20 - 1.09 Potassium: 3.3 - 4.3 - 3.9 - 3.3 Troponin (high sensitive): 22 - 97- 1728 - 3246 - 6005 - 2931 TSH: 0.71 Chest x-ray revealed: IMPRESSION: 1. No evidence of acute disease. EKG revealed sinus rhythm with old anterior [place] Echocardiogram revealed: Left ventricle: Left ventricular systolic function was around 35%. Anterior/anteroseptal/apical hypokinesia was seen. Compatible with ischemic cardiomyopathy. Right ventricle is normal-sized with normal systolic function. Left atrium was mildly dilated. Right atrium was normal-sized. Aortic valve was trileaflet. There was no aortic stenosis. There was trace aortic insufficiency. There was mild mitral regurgitation. There was trace pulmonary valve insufficiency. There was trace tricuspid regurgitation. Right ventricular systolic pressure was assessed normal at 31 mm Hg. IVC was normal- sized with normal respiratory variation. There was no pericardial effusion. LHC revealed: Diagnosis: Patent LAD/LCX/ramus intermedius/RCA. 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 Troponin has been increasing. Diagnosis and non-STEMI. Chest pain Non-STEMI Hypertension Hyperlipidemia CKD Cardiac suggestion for management: Manage on telemetry Follow-up electrolytes and kidney function tests and correct abnormalities Lipitor Lovenox for now Optimized medical therapy Dual antiplatelet therapy (On Aspirin/Plavix) Lifestyle and risk factor modifications GDMT for systolic heart failure. Patient is allergic to Valsartan and Entrersto cannot be started. She herself mentions allergy to Lisinopril also. Proceed with close rate and rhythm surveillance Proceed with close hemodynamic surveillance Proceed with optimized blood pressure control Transfuse to sustain HGB levels above 7.0 Sustain Magnesium level greater than 2.0 Sustain Potassium level greater than 4.0 Follow up renal function and electrolytes Further evaluation and management depends on the above and clinical course Patient's status, findings, and plan of care was discussed and reviewed with supervising physician Dr. Pablo, who is in agreement with current plan of care. Plan of care discussed with and agreed upon by patient/family/Primary RN. Prognosis: Guarded Thank you for allowing me to participate in the care of this patient. Further recommendations will depend on clinical progression, hospitalist, and other consultants. Will continue to follow with Primary. If you have any questions, please do not hesitate to contact me. A total of 75 minutes was spent reviewing the patient record, examining the patient, making a diagnostic and therapeutic plan, discussing this plan with medical personnel, following up on diagnostic studies and following the patient for clinical stability excluding any and all procedures. At least 50% of this time was spent in direct, [id number] contact. Dietary Evaluation Review Comments: Cardiac diet Encourage increase physical activity Expected Outcomes/Goals: Improved overall health and physcial strength Plan discussed with: Patient CRESCENCIO BELTRAN NP Nov 28, 2024 12:04
[2024-11-29 01:00] VITALS: BP 127/60; PULSE 55; RESP 17; TEMP 97.8; O2SAT 99
[2024-11-29 05:00] VITALS: BP 129/69; PULSE 58; RESP 17; TEMP 97.3; O2SAT 99
[2024-11-29 08:00] VITALS: PULSE 49
--- NOTE | 2024-11-29 08:21 | DVHPN2 ---
Progress Note - Dictate Date Seen: Nov 29, 2024 Medical Necessity Reason Pt with a Central, PICC or Fol: No vital signs Vital Sign Date Time Temp Pulse Resp B/P (MAP) Pulse Ox O2 Delivery O2 Flow Rate FiO2 11/29/24 05:00 97.3 58 17 129/69 (89) 99 97.3 11/28/24 20:00 Nasal Cannula* 2 28 Total Intake and Output 11/28/24 11/28/24 11/29/24 15:00 23:00 07:00 Intake Total 100 ml 840 ml 1350 ml Balance 100 ml 840 ml 1350 ml medications Current Medications Medications Dose Ordered Sig/Aparna Route Start Time Stop Time Status Last Admin Dose Admin Ondansetron HCl 4 mg Q6HP PRN IV 11/19/24 20:15 11/23/24 15:26 4 MG Amlodipine Besylate 5 mg DAILY PO 11/20/24 10:00 11/28/24 09:17 5 MG Hydralazine HCl 10 mg Q6HP PRN IV 11/19/24 22:30 Aspirin 81 mg DAILY PO 11/20/24 10:00 11/28/24 09:17 81 MG Sodium Chloride 10 ml Q8HR IV 11/20/24 06:00 11/29/24 06:18 10 ML Docusate Sodium 100 mg BIDPRN PRN PO 11/19/24 22:30 11/26/24 21:18 100 MG Acetaminophen 650 mg Q6HP PRN PO 11/19/24 22:30 11/29/24 05:12 650 MG Nitroglycerin 0.4 mg Q5MINP PRN SL 11/19/24 22:30 Pantoprazole Sodium 40 mg DAILY IV 11/20/24 10:00 11/28/24 09:17 40 MG Sodium Chloride 1,000 ml @ 100 mls/hr Q10H IV 11/20/24 08:45 11/29/24 06:27 100 MLS/HR Atorvastatin Calcium 80 mg HS PO 11/20/24 22:00 11/28/24 21:21 80 MG Acetaminophen/ Hydrocodone Bitart 1 tab Q6HP PRN PO 11/21/24 12:45 11/25/24 20:02 1 TAB Carvedilol 3.125 mg Q12HR PO 11/22/24 22:00 11/28/24 21:20 3.125 MG Spironolactone 25 mg DAILY PO 11/23/24 10:00 11/28/24 09:17 25 MG Clopidogrel Bisulfate 75 mg DAILY PO 11/23/24 10:00 11/28/24 09:17 75 MG Enoxaparin Sodium 60 mg Q12HR@0500,1700 SC 11/23/24 05:00 11/29/24 05:16 60 MG Albuterol 1.25 mg Q6HP PRN NEB 11/23/24 18:30 Cancel Ceftriaxone Sodium 50 ml @ 100 mls/hr DAILY@09 IV 11/26/24 09:00 11/28/24 08:18 100 MLS/HR laboratory and microbiology Laboratory Tests 11/24/24 09:27 Test 11/24/24 09:27 Range/Units Serum Glucose 125 H 74-106 mg/dL Assessment/Plan No chest pain Patient is a 84-year-old female who presented to the hospital with chest discomfort. She mentions that she was at the pain management and when driving back home started to feel chest discomfort. Later she decided to come to the hospital. Cardiology is involved for cardiac aspects of care. Patient is known to our practice from outside. Not in acute distress. No JVD. Mucosa is pink and wet. No carotid bruit. Scattered rhonchi in the lungs is heard. Not using accessory muscles of breathing. Cardiac: Regular, no thrill/gallop. Abdomen is soft. Bowel sound is positive. No tenderness. Extremities do not reveal edema. Dorsalis pedis 2+ bilateral Past medical history includes hypertension, hyperlipidemia, asthma, neuropathy, history of mild mitral valve prolapse, CKD, status post right hip replacement and history of lumbar stenosis. Nuclear stress test (performed in the office) in February 2024 revealed scar. Echocardiogram (performed in the office) of December 2023 had revealed preserved ejection fraction with questionable mild mitral valve prolapse and [id number] mitral regurgitation Creatinine: 1.37 - 1.35 - 1.20 - 1.09 Potassium: 3.3 - 4.3 - 3.9 - 3.3 Troponin (high sensitive): 22 - 97- 1279 - 8601 - 1566 - 2931 TSH: 0.71 Chest x-ray revealed: IMPRESSION: 1. No evidence of acute disease. EKG revealed sinus rhythm with old anterior [place] Echocardiogram revealed: Left ventricle: Left ventricular systolic function was around 35%. Anterior/anteroseptal/apical hypokinesia was seen. Compatible with ischemic cardiomyopathy. Right ventricle is normal-sized with normal systolic function. Left atrium was mildly dilated. Right atrium was normal-sized. Aortic valve was trileaflet. There was no aortic stenosis. There was trace aortic insufficiency. There was mild mitral regurgitation. There was trace pulmonary valve insufficiency. There was trace tricuspid regurgitation. Right ventricular systolic pressure was assessed normal at 31 mm Hg. IVC was normal- sized with normal respiratory variation. There was no pericardial effusion. LHC revealed: Diagnosis: Patent LAD/LCX/ramus intermedius/RCA. 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 Troponin has been increasing. Diagnosis and non-STEMI. Chest pain Non-STEMI Hypertension Hyperlipidemia CKD Cardiac suggestion for management: Managed on telemetry Follow-up electrolytes and kidney function tests and correct abnormalities Lipitor Stop Lovenox Optimized medical therapy Dual antiplatelet therapy (On Aspirin/Plavix) Lifestyle and risk factor modifications GDMT for systolic heart failure. Patient is allergic to Valsartan and Entrersto cannot be started. She herself mentions allergy to Lisinopril also. Cardiac maldonado, can be followed as outpatient Further evaluation and management depends on the above and clinical course A total of 55 minutes was spent reviewing the patient record, examining the patient, making a diagnostic and therapeutic plan, discussing this plan with medical personnel, following up on diagnostic studies and following the patient for clinical stability excluding any and all procedures. At least 50% of this time was spent in direct, [id number] contact. Thank you for allowing me to participate in this patient's care. Further recommendations will depend on patient's clinical course. Please do not hesitate to contact me if you have any questions or concerns. This medical document was created using electronic medical record system with [employer] dictation system. Although this document has been carefully reviewed, there may still be some phonetic and typographical errors. These areas are purely typographical due to the imperfection of the software programs, and do not reflect any compromise in the patient's medical care. Dietary Evaluation Review Comments: Cardiac diet Encourage increase physical activity Expected Outcomes/Goals: Improved overall health and physcial strength Plan discussed with: Patient, Other (nurse) GAMA FERRO MD Nov 29, 2024 08:21
[2024-11-29 09:00] VITALS: BP 143/58; PULSE 55; RESP 19; TEMP 98.2; O2SAT 99
--- NOTE | 2024-11-29 12:42 | DVHDS2 ---
Discharge Summary Date of Admission Nov 19, 2024 at 22:25 Date of Discharge: Nov 29, 2024 Admitting Diagnosis Chest pain Wounds: Left heart catheterization Labs/Diagnostic Data: Laboratory Results Test 11/25/24 09:15 11/24/24 09:27 11/22/24 04:44 11/20/24 10:43 Urine Color Colorless (Yellow) Urine Clarity Clear (Clear) Urine pH 7.5 (5.0-9.0) Urine Specific [place] 1.004 (1.001-1.035) Urine Protein Negative (Negative) Urine Ketones Negative (Negative) Urine Blood Negative /uL (Negative) Urine Nitrite Negative (Negative) Urine Bilirubin Negative (Negative) Urine Urobilinogen Normal mg/dL (Negative) Urine Leukocyte Esterase Negative /uL (Negative) Urine RBC <1 /hpf (0 - 4) Urine Microscopic WBC < 1 /HPF (0-5) Urine Squamous Epithelial Cells None seen /hpf (<5) Urine Bacteria None seen /hpf (None Seen) Urine Glucose Normal mg/dL (Normal) White Blood Count 6.1 10^3/uL (4.4-10.8) Red Blood Count 3.88 10^6/uL (4.0-5.20) Hemoglobin 11.4 g/dL (12.2-16.2) Hematocrit 33.7 % (36.0-46.0) Mean Corpuscular Volume 87.1 fL (80.0-100.0) Mean Corpuscular Hemoglobin 29.4 pg (28.0-32.0) Mean Corpuscular Hemoglobin Concent 33.8 g/dL (32.0-36.0) Red Cell Distribution Width 13.2 % (11.8-14.3) Platelet Count 184 10^3/uL (140-450) Mean Platelet Volume 7.9 fL (6.9-10.8) Neutrophils (%) (Auto) 71.8 % (37.0-80.0) Lymphocytes (%) (Auto) 19.1 % (10.0-50.0) Monocytes (%) (Auto) 7.5 % (0.0-12.0) Eosinophils (%) (Auto) 1.4 % (0.0-7.0) Basophils (%) (Auto) 0.2 % (0.0-2.0) Neutrophils # (Auto) 4.4 10 ^3/uL (1.6-8.6) Lymphocytes # (Auto) 1.2 10 ^3/uL (0.4-5.4) Monocytes # (Auto) 0.5 10 ^3/uL (0-1.3) Eosinophils # (Auto) 0.1 10 ^3/uL (0-0.8) Basophils # (Auto) 0 10 ^3/uL (0-0.2) Nucleated Red Blood Cells 0.0 % Sodium Level 144 mmol/L (136-145) Potassium Level 3.3 mmol/L (3.5-5.1) Chloride Level 106 mmol/L (98-107) Carbon Dioxide Level 28 mmol/L (20-31) Anion Gap 10 (5-15) Blood Urea Nitrogen 15 mg/dL (9-23) Creatinine 1.09 mg/dL (0.550-1.02) Glomerular Filtration Rate Calc 51 mL/min (>90) BUN/Creatinine Ratio 13.8 (10.0-20.0) Serum Glucose 125 mg/dL (74-106) Calcium Level 8.1 mg/dL (8.7-10.4) Magnesium Level 1.2 mg/dL (1.6-2.6) Total Bilirubin 0.6 mg/dL (0.2-1.0) Aspartate Amino Transferase (AST) 26 U/L (13-40) Alanine Aminotransferase (ALT) 22 U/L (7-40) Alkaline Phosphatase 68 U/L (46-116) Total Protein 5.9 g/dL (5.7-8.2) Albumin 3.9 g/dL (3.2-4.8) Prothrombin Time 11.0 sec (9.3-11.8) Prothrombin Time INR 1.04 (0.9-1.15) Activated Partial Thromboplast Time 69.8 SEC (24.5-34.5) Hemoglobin A1c 5.7 % A1C (<5.7) Triglycerides Level 38 mg/dL (< 150) Cholesterol Level 196 mg/dL (< 200) LDL Cholesterol 125 mg/dL (< 100) HDL Cholesterol 65 mg/dL (40-59) Thyroid Stimulating Hormone (TSH) 0.71 uIU/mL (0.55-4.78) Test 11/20/24 02:48 Troponin I High Sensitivity 2931 ng/L (</=34) Other Laboratory Tests 11/24/24 09:27 Brief Hx & Hospital Course: 64-year-old female with a history of hypertension came in for generalized weakness and chest pain found to have coronary artery disease started on heparin drip underwent left heart catheterization by Dr. Le 11/22/2024 with the findings of patent LAD circumflex and ramus intermedius RCA. 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 Le at the time of discharge patient is alert awake with a stable vital signs and ambulatory. Prescription for aspirin Plavix and doxycycline sent to the pharmacy Consults/Reason for consult Cardiology Dr. Le Operations or Procedures Left heart catheterization Condition at Discharge: Fair Final Diagnosis/Problems List Acute chest pain secondary to coronary artery disease: Heparin drip treatment per ACS protocol Status Post left heart catheterization by Dr. 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 Le in two weeks Medications: Aspirin Plavix Doxycycline [facility]uled Alendronate Sodium (Alendronate Sodium), 1 TAB PO QWEEKLY, (Reported) Amlodipine Besylate (Amlodipine Besylate), 1 TAB PO DAILY, (Reported) Amoxicillin & Pot Clavulanate (Amoxicillin/Potassium Cla), 1 TAB PO BID, (Reported) Cetirizine HCl (Cetirizine Hydrochloride), 1 TAB PO DAILY, (Reported) Duloxetine Hydrochloride (Duloxetine Hydrochloride), 1 CAP PO DAILY, (Reported) Hydrochlorothiazide W/Triamter (Triamterene/Hydrochloroth), 1 CAP PO DAILY, (Reported) Hydrocodone-Acetaminophen (Hydrocodone Bitartrate/AC 10-325 mg), 1 TAB PO TID, (Reported) Montelukast Sodium (Montelukast Sodium), 1 TAB PO DAILY, (Reported) Oxybutynin Chloride (Oxybutynin Chloride), 10 MG PO DAILY, (Reported) Pantoprazole Sodium Sesquihydr (Pantoprazole Sodium Dr), 20 MG PO DAILY, (Reported) Pravastatin Sodium (Pravachol Tablet), 40 MG PO DAILY, (Reported) 39 (Time taken for discharge summary 39 minutes) Discharge Statement: "Patient was advised to return to the ER or call 911 if any headaches, dizziness, shortness of breath, chest pain, abdominal pain, bleeding, fevers, or worsening of medical condition. Patient was counseled about treatment plan, medications, possible side effects, patientverbalized understanding. All questions were answered to the best of my ability. This discharge took greater then 30 minutes in planning, reviewing documentation, counseling the patient, and discussing with other team members." ASSESSMENT ASSESSMENT Hospital Course Improved Assessment Acute chest pain secondary to coronary artery disease: Heparin drip treatment per ACS protocol Status Post left heart catheterization by Dr. 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
[2024-11-29 13:00] VITALS: BP 130/65; PULSE 60; RESP 19; TEMP 98.9; O2SAT 95
[2024-11-29 13:30] VITALS: BP 143/58; PULSE 60; TEMP 36.8
== END 2024-11-29 16:50 | disposition home or self-care (01) | DRG 281 ==
LOC: ER 17:00 → OVERFLOW 22:25 → TELE-WESTW 11-20 01:45
PROVIDERS: ADMIT Family Medicine; ATTEND Family Medicine
PROC: 4A023N7 Measurement of Cardiac Sampling and Pressure, Left Heart, Percutaneous Approach (ICD-10-PCS; principal; 2024-11-22)
PROC: B211YZZ Fluoroscopy of Multiple Coronary Arteries using Other Contrast (ICD-10-PCS; 2024-11-22)
DX: I21.4 Non-ST elevation (NSTEMI) myocardial infarction (principal); N17.9 Acute kidney failure, unspecified; Q25.0 Patent ductus arteriosus; I25.10 Atherosclerotic heart disease of native coronary artery without angina pectoris; E87.6 Hypokalemia; N18.9 Chronic kidney disease, unspecified; J45.909 Unspecified asthma, uncomplicated; Z96.641 Presence of right artificial hip joint; E78.5 Hyperlipidemia, unspecified; M48.061 Spinal stenosis, lumbar region without neurogenic claudication; I12.9 Hypertensive chronic kidney disease with stage 1 through stage 4 chronic kidney disease, or unspecified chronic kidney disease; G62.9 Polyneuropathy, unspecified; I25.5 Ischemic cardiomyopathy; I37.1 Nonrheumatic pulmonary valve insufficiency; I08.1 Rheumatic disorders of both mitral and tricuspid valves; Z79.899 Other long term (current) drug therapy; Z79.82 Long term (current) use of aspirin; Z90.710 Acquired absence of both cervix and uterus; Z88.8 Allergy status to other drugs, medicaments and biological substances; Z79.02 Long term (current) use of antithrombotics/antiplatelets; I25.2 Old myocardial infarction
CPT/HCPCS: 36415; 71046; 80048; 80053; 80061; 81001; 83036; 83735; 84443; 84484; 85025; 85610; 85730; 86850; 86900; 86901; 87086; 93005; 93306; 96374; 97110; 97116; 97163; 97530; 99152; G0378; J2250; J2405; J2470; Q9967

== ENCOUNTER 2025-01-31 14:06 | Inpatient (IN) | payer MEDICARE, MEDICAID ==
[~2025-01-31] VITALS: Ht 152.4 cm; Wt 64.4 kg
[~2025-01-31 14:06] MED LIST changes: -LIS10T PO; -NOR10T GT; -SIMV20TA20 PO; -TRIA37.561 PO; +TRIA37.586 PO
--- NOTE | 2025-01-31 14:40 | ED.PDOC ---
GI ASSESSMENT HPI Comments 84y F who presents to the ED for chief complaint of abdominal pain. Pt states she has been having L sided abdominal pain for the past 2-3 week. Pt rates the pain 8/10, constant, achy in nature, non-radiating, with no associated exacerbating or relieving factors. Pt has associated chills but denies any other symptoms. Pt Chief Complaint: Abdominal Pain Time Seen by MD: 14:38 Primary Care Provider: ALESIA Reviewed Notes: Nurses Notes, Medications, Allergies Allergies: Coded Allergies: Lisinopril (Verified Allergy, Severe, 06/18/11) Metoprolol (Verified Allergy, Severe, 01/31/25) Valsartan (Verified Allergy, Severe, 06/18/11) Clonidine (Verified Allergy, Unknown, 01/31/25) Losartan (Verified Allergy, Unknown, 01/31/25) Home Meds Reported Medications Cetirizine HCl (Cetirizine Hydrochloride) 10 Mg Tab, 1 TAB PO DAILY for 21 Days, #21 11/22/24 Amoxicillin & Pot Clavulanate (Amoxicillin/Potassium Cla) 875 Mg Tab, 1 TAB PO BID for 10 Days, #20 11/22/24 Alendronate Sodium (Alendronate Sodium) 35 Mg Tab, 1 TAB PO QWEEKLY for 90 Days, #12 11/22/24 Pantoprazole Sodium Sesquihydr (Pantoprazole Sodium Dr) 40 Mg Tab, 20 MG PO DAILY for 30 Days, #30 11/22/24 Pravastatin Sodium (PRAVACHOL TABLET) 20 Mg Tb, 40 MG PO DAILY for 30 Days, #30 11/22/24 Hydrocodone-Acetaminophen (Hydrocodone Bitartrate/AC 10-325 mg) 1 Tab Tab, 1 TAB PO TID for 30 Days, #90 11/22/24 Amlodipine Besylate (Amlodipine Besylate) 5 Mg Tab, 1 TAB PO DAILY for 30 Days, #30 11/22/24 Hydrochlorothiazide W/Triamter (Triamterene/Hydrochloroth) 1 Cap Cap, 1 CAP PO DAILY for 30 Days, #30 [TRIAMTERENE-HCTZ 75/50 MG] 11/22/24 Oxybutynin Chloride (Oxybutynin Chloride) 5 Mg Tab, 10 MG PO DAILY for 30 Days, #30 [OXYBUTYNIN CL ER 10 MG TABLET] 11/22/24 Duloxetine Hydrochloride (Duloxetine Hydrochloride) 30 Mg Cap, 1 CAP PO DAILY for 30 Days, #30 11/22/24 Montelukast Sodium (MONTELUKAST SODIUM) 10 Mg Tab, 1 TAB PO DAILY for 30 Days, #30 11/22/24 Information Source: Patient, Relative Mode of Arrival: Ambulatory Brought in by: daughter Timing: Weeks Duration: Since onset Prehospital treatment: None Quality: Aching Vomitus: None Stool: Normal Severity: Moderate Recent: None Pain Location: LUQ, LLQ Modifying Factors: Nothing Associated sign and symptoms: Other (chills) Past Medical History PAST MEDICAL HISTORY: Asthma, Cancer, CKF, High Lipids, HTN, [place] Surgical History: Appendectomy, Hysterectomy Surgical History (Other): 2x back surgeries, R hip replacement, cataracts 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: No Pertinent 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 Family History Family History: No family hx of Heart heron, No family hx of HTN Social History Smoker: Non-Smoker Alcohol: Denies ETOH Use Drugs: Marijuana Lives In: Home Constitutional: reports: chills; denies: diaphoresis, fatigue, fever, malaise, sweats, weakness, others EENTM: denies: blurred vision, double vision, ear bleeding, ear discharge, ear drainage, ear pain, ear ringing, eye pain, eye redness, hearing loss, mouth pain, mouth swelling, nasal discharge, nose bleeding, nose congestion, nose pain, photophobia, tearing, throat pain, throat swelling, voice changes, others Respiratory: denies: cough, hemoptysis, orthopnea, SOB at rest, shortness of breath, SOB with excertion, stridor, wheezing, others Cardiovascular: denies: chest pain, dizzy spells, diaphoresis, Dyspnea on exertion, edema, irregular heart beat, left arm pain, lightheadedness, palpitations, PND, syncope, others Gastrointestinal: reports: abdominal pain; denies: abdomen distended, blood streaked bowels, constipated, diarrhea, dysphagia, difficulty swallowing, hematemesis, melena, poor appetite, poor fluid intake, rectal bleeding, rectal pain, others Genitourinary: denies: abnormal vagina bleeding, burning, dyspareunia, dysuria, flank pain, frequency, hematuria, incontinence, pain, , vagina discharge, urgency, others Neurological: denies: dizziness, fainting, headache, left sided numbness, left sided weakness, numbness, paresthesia, pre-existing deficit, right sided numbness, right sided weakness, seizure, speech problems, tingling, tremors, weakness, others Musculoskeletal: denies: back pain, gout, joint pain, joint swelling, muscle pain, muscle stiffness, neck pain, others Integumetry: denies: bruises, change in color, change in hair/nails, dryness, laceration, lesions, lumps, rash, wounds, others Allergic/Immunocompromised: denies: Difficulty Healing, Frequent Infections, Hives, Itching, others Hematologic/Lymphatic: denies: anemia, blood clots, easy bleeding, easy bruising, swollen glands, others Endocrine: denies: excessive hunger, excessive sweating, excessive thirst, excessive urination, flushing, intolerance to cold, intolerance to heat, unexplained weight gain, unexplained weight loss, others Psychiatric: denies: anxiety, bipolar disorder, depression, hopeless, panic disorder, schizophrenia, sleepless, suicidal, others All Other Systems: Reviewed and Negative Physical Exam General Appearance: Moderate Distress HEENT: Normal ENT Inspection, Pharynx Normal, TMs Normal Neck: Full Range of Motion, Non-Tender, Normal, Normal Inspection Respiratory: Chest Non-Tender, Lungs Clear, No Accessory Muscle Use, No Resp iratory Distress, Normal Breath Sounds Cardiovascular: No Edema, No JVD, No Murmur, No Gallop, Normal Peripheral Pulses, Regular Rate/Rhythm Breast Exam: Deferred Gastrointestinal: LLQ, LUQ, No Organomegaly, No Pulsatile Mass, Normal Bowel Sounds, Soft, Tenderness Genitalia: Deferred Pelvic: Deferred Rectal: Deferred Extremities: No calf tenderness, Normal capillary refill, Normal inspection, Normal range of motion, Non-tender, No pedal edema Musculoskeletal : Apperance: Normal Neurologic: Alert, production sampler II-XII nml as Tested, Motor Weakness, Normal Affect, Normal Mood, No Sensory Deficits Cerebellar Function: Normal Reflexes: Normal Skin: Dry, Normal Color, Warm Lymphatic: No Adenopathy Was a procedure done? Was a procedure done?: No GI differential Dx Differential Diagnosis: Cholecystitis, Constipation, Diverticular disease, Gastritis/PUD, Gastroenteritis, Pancreatitis, UTI, Dehydration, Food Poisoning, Bacterial, Viral, Stress Ulcer, Kidney Stone X-Ray, Labs, Meds, VS Vital Signs Date Time Temp Pulse Resp B/P (MAP) Pulse Ox O2 Delivery O2 Flow Rate FiO2 01/31/25 14:08 98.1 60 15 153/52 98 98.1 Lab Test 01/31/25 14:44 Range/Units White Blood Count 6.3 4.4-10.8 10^3/uL Red Blood Count 4.33 4.0-5.20 10^6/uL Hemoglobin 13.0 12.2-16.2 g/dL Hematocrit 38.3 36.0-46.0 % Mean Corpuscular Volume 88.5 80.0-100.0 fL Mean Corpuscular Hemoglobin 30.1 28.0-32.0 pg Mean Corpuscular Hemoglobin Concent 34.0 32.0-36.0 g/dL Red Cell Distribution Width 13.6 11.8-14.3 % Platelet Count 250 140-450 10^3/uL Mean Platelet Volume 7.7 6.9-10.8 fL Neutrophils (%) (Auto) 59.7 37.0-80.0 % Lymphocytes (%) (Auto) 29.4 10.0-50.0 % Monocytes (%) (Auto) 7.0 0.0-12.0 % Eosinophils (%) (Auto) 3.3 0.0-7.0 % Basophils (%) (Auto) 0.6 0.0-2.0 % Neutrophils # (Auto) 3.8 1.6-8.6 10 ^3/uL Lymphocytes # (Auto) 1.9 0.4-5.4 10 ^3/uL Monocytes # (Auto) 0.4 0-1.3 10 ^3/uL Eosinophils # (Auto) 0.2 0-0.8 10 ^3/uL Basophils # (Auto) 0 0-0.2 10 ^3/uL Nucleated Red Blood Cells 0.0 % Sodium Level 145 136-145 mmol/L Potassium Level 4.2 3.5-5.1 mmol/L Chloride Level 104 98-107 mmol/L Carbon Dioxide Level 32 H 20-31 mmol/L Anion Gap 9 5-15 Blood Urea Nitrogen 31 H 9-23 mg/dL Creatinine 1.46 H 0.550-1.02 mg/dL Glomerular Filtration Rate Calc 36 >90 mL/min BUN/Creatinine Ratio 21.2 H 10.0-20.0 Serum Glucose 91 74-106 mg/dL Calcium Level 9.5 8.7-10.4 mg/dL Total Bilirubin 0.6 0.2-1.0 mg/dL Aspartate Amino Transferase (AST) 20 13-40 U/L Alanine Aminotransferase (ALT) 18 7-40 U/L Alkaline Phosphatase 99 46-116 U/L Total Protein 7.2 5.7-8.2 g/dL Albumin 4.8 3.2-4.8 g/dL Lipase 39 12-53 U/L CAT scan of the abdomen and pelvis shows: IMPRESSION: Limited evaluation without contrast. Colonic diverticular disease. Moderate volume stool in the colon. Cholelithiasis. Nonobstructing left renal calculus measuring 6 mm. Left renal indeterminate lesion measuring 1.7 cm. Recommend MRI abdomen with and without contrast to evaluate and exclude any type of solid mass/neoplasm. Atherosclerotic disease. The patient's CBC is within normal limits The chemistry panel shows a BUN of 31 and a creatinine of 1.46 The rest of the CBC and liver enzymes are negative The lipase is within normal limits The patient is being admitted at this time Images Reviewed?: Images reviewed and evaluated by me Time of 1ST Reevaluation: 15:10 Reevaluation 1ST: Unchanged Patient Education/Counseling: Diagnosis, Treatment Family Education/Counseling: Diagnosis, Treatment SEPSIS Sepsis Screen Date sepsis recognized/suspect: Jan 31, 2025 Time Sepsis recognized/suspect: 1410 Recent Procedure: No On Antibiotic Therapy: No Respiratory Rate >20: No Heart Rate >90: No Temp<36 C (96.8 F) or >38.3 C: No SBP <90 or MAP <65 mmHG: No New Acute Mental Status Change: No Is the patient on CPAP, BIPAP,: No Physician Orders Urinalysis (01/31/25 14:27) Ct Ab Pel Wo Con-No Oral Or Iv (01/31/25 14:27) Vital Signs Date Time Temp Pulse Resp B/P (MAP) Pulse Ox O2 Delivery O2 Flow Rate FiO2 01/31/25 14:08 98.1 60 15 153/52 98 98.1 Laboratory Tests Test 01/31/25 14:44 White Blood Count 6.3 10^3/uL (4.4-10.8) Departure 1 Departure Time of Disposition: 16:12 Impression: Primary Impression: Intractable abdominal pain Additional Impression: Cholelithiasis Qualified Codes: K80.20 - Calculus of gallbladder without cholecystitis without obstruction Disposition: ADMITTED INPATIENT Admit to: Med Surg Condition: Fair Critical Care Note Critical Care Time?: No Stability Stability form required: Yes Unstable for transfer: ED Physician Assesment (Clinical assesment) Heart Score Heart Score: Heart Score Response (Comments) Value History N/A 0 EKG N/A 0 Age N/A 0 Risk Factors N/A 0 Troponin N/A 0 Total 0 I personally scribed for ALFONSO CEBALLOS MD ([email or web address]) on 01/31/25 at 14:40. Electronically submitted by Hao De Jesus ([email or web address]). I personally scribed for ALFONSO ECBALLOS MD ([email or web address]) on 01/31/25 at 14:42. Electronically submitted by Hao De Jesus ([email or web address]). ALFONSO CEBALLOS MD Jan 31, 2025 14:40
[2025-01-31 15:01] LABS: Hematocrit 38.3 % (36.0-46.0); Hemoglobin 13.0 g/dL (12.2-16.2); Mean Corpuscular Hemoglobin 30.1 pg (28.0-32.0); Mean Corpuscular Volume 88.5 fL (80.0-100.0); Nucleated Red Blood Cells % 0.0 %
[2025-01-31 15:18] LABS: Alanine Aminotransferase 18 U/L (7-40); Albumin 4.8 g/dL (3.2-4.8); Alkaline Phosphatase 99 U/L (46-116); Anion Gap 9 (5-15); BUN/Creatinine Ratio 21.2 (10.0-20.0); Calcium 9.5 mg/dL (8.7-10.4); Chloride 104 mmol/L (98-107); Glucose 91 mg/dL (74-106); Lipase 39 U/L (12-53); Potassium 4.2 mmol/L (3.5-5.1); Total Protein 7.2 g/dL (5.7-8.2)
[2025-01-31 15:19] LABS: Bilirubin, Total 0.6 mg/dL (0.2-1.0)
[2025-01-31 15:20] LABS: Blood Urea Nitrogen 31 mg/dL (9-23); Carbon Dioxide 32 mmol/L (20-31); Sodium 145 mmol/L (136-145)
--- NOTE | 2025-01-31 15:36 | DVH ---
Indication: pain Technique: CT axial images of the abdomen and pelvis are obtained without contrast. Coronal and sagittal reformats were obtained. Radiation Dose Information: CTDI volume is 9.03 mGy. Dose-length product is 402.5 mGy*cm Comparison: None FINDINGS: There is limited interpretation of the abdomen and pelvis without administration of intravenous contrast. Lung bases demonstrate atelectasis. Adrenal glands, spleen, pancreas and liver unremarkable in shape. Cholelithiasis. Kidneys demonstrate no hydronephrosis. Left renal indeterminate exophytic lesion measuring 1.7 cm. Nonobstructing left renal calculus measuring 6 mm. Right kidney demonstrates no hydronephrosis/nephrolithiasis. Stomach is partially distended. Small bowel loops normal in caliber. Duodenal diverticulum. Colonic diverticular disease. Moderate volume stool throughout the colon. No secondary signs for appendicitis. Abdominal aortic atherosclerotic disease. Bladder is contracted. No free pelvic fluid. No inguinal lymphadenopathy. Right hip arthroplasty. Moderate degenerate changes left hip. [id number] bilateral sacroiliac degenerative joint disease. Moderate to advanced thoracolumbar degenerative disc disease. Posterior decompression at L3. T10 vertebral body hemangioma measuring 2 cm. IMPRESSION: Limited evaluation without contrast. Colonic diverticular disease. Moderate volume stool in the colon. Cholelithiasis. Nonobstructing left renal calculus measuring 6 mm. Left renal indeterminate lesion measuring 1.7 cm. Recommend MRI abdomen with and without contrast to evaluate and exclude any type of solid mass/neoplasm. Atherosclerotic disease. Other findings as described.
[2025-01-31] MEDS: SODIUM CHLORIDE 0.9% 1,000 ML IV SCH (17:15)
--- NOTE | 2025-01-31 18:01 | DVHHP2 ---
History of Present Illness History of Present Illness A 84-year-old female with PMHx of diabetes mellitus, CAD status post angiogram ([employer] PDA) on DAPT (clopidogrel, aspirin), hypertension on amlodipine, and hyperlipidemia on atorvastatin, presenting with acute intractable left lower quadrant abdominal pain. Patient reports that for the last 2 weeks she has been experiencing intermittent LLQ abdominal pain, but today the pain acutely worsened to 8/10 intensity, prompting her to come to the ED. Pain is non-radiating, sharp in nature. She endorses chills but denies fever, nausea, vomiting, diarrhea, constipation, hematochezia, or melena. She had a normal bowel movement today. No dysuria, no hematuria reported; UA is still pending. No flank pain. Denies vaginal discharge or bleeding. Reports poor appetite due to the pain. No recent travel, no sick contacts. At home she takes clopidogrel, aspirin, amlodipine, and atorvastatin. No known allergies. No recent antibiotic use. ED evaluation shows stable vital signs, afebrile, not hypotensive, not tachycardic. Laboratory studies show WBC 6.3, Hgb 13, Plt 250. BMP significant for Na 145, K 4.2, BUN 31, Cr 1.46 (mild elevation above presumed baseline), bicarbonate 32, anion gap 9, glucose 91, A1c 5.4%. LFTs and lipase normal. No leukocytosis. No lactic acidosis. CT abdomen/pelvis without contrast shows: Colonic diverticulosis, moderate volume stool in the colon. Nonobstructing left renal calculus measuring 6 mm. Right kidney demonstrates no hydronephrosis or nephrolithiasis. Left renal cortical scarring. L3 vertebral body hemangioma 2 cm. No acute appendicitis. No bowel obstruction. Review of Systems Allergies: Coded Allergies: Lisinopril (Verified Allergy, Severe, 06/18/11) Metoprolol (Verified Allergy, Severe, 01/31/25) Valsartan (Verified Allergy, Severe, 06/18/11) Clonidine (Verified Allergy, Unknown, 01/31/25) Losartan (Verified Allergy, Unknown, 01/31/25) Medications Current Medications Medications Dose Ordered Sig/Aparna Route Start Time Stop Time Status Last Admin Dose Admin Sodium Chloride 1,000 ml @ 60 mls/hr [id number] IV 01/31/25 17:15 Acetaminophen 650 mg Q6HP PRN PO 01/31/25 17:15 Ceftriaxone Sodium 50 ml @ 100 mls/hr DAILY@09 IV 01/31/25 18:00 Metronidazole 100 ml @ 100 mls/hr Q8HR IV 01/31/25 22:00 Amlodipine Besylate 5 mg DAILY PO 02/01/25 10:00 Aspirin 81 mg DAILY PO 02/01/25 10:00 Clopidogrel Bisulfate 75 mg DAILY PO 02/01/25 10:00 Atorvastatin Calcium 10 mg HS PO 01/31/25 22:00 Exam Vital Signs Vital Signs Date Time Temp Pulse Resp B/P (MAP) Pulse Ox O2 Delivery O2 Flow Rate FiO2 01/31/25 14:08 98.1 60 15 153/52 98 98.1 Exam General: Alert, oriented, appears uncomfortable due to pain but non-toxic. HEENT: Mucous membranes moist, no icterus. Neck: Supple, no JVD. CV: RRR, no murmurs. Resp: Lungs clear bilaterally, no wheezes, rales, or rhonchi. Abdomen: Soft, LLQ tenderness to palpation, no guarding, no rebound, non- distended, positive bowel sounds. No CVA tenderness bilaterally. Extremities: No edema. Skin: Warm, dry. Neuro: No focal deficits. Psych: Cooperative. Labs/Xrays Labs Test 01/31/25 14:44 Range/Units White Blood Count 6.3 4.4-10.8 10^3/uL Red Blood Count 4.33 4.0-5.20 10^6/uL Hemoglobin 13.0 12.2-16.2 g/dL Hematocrit 38.3 36.0-46.0 % Mean Corpuscular Volume 88.5 80.0-100.0 fL Mean Corpuscular Hemoglobin 30.1 28.0-32.0 pg Mean Corpuscular Hemoglobin Concent 34.0 32.0-36.0 g/dL Red Cell Distribution Width 13.6 11.8-14.3 % Platelet Count 250 140-450 10^3/uL Mean Platelet Volume 7.7 6.9-10.8 fL Neutrophils (%) (Auto) 59.7 37.0-80.0 % Lymphocytes (%) (Auto) 29.4 10.0-50.0 % Monocytes (%) (Auto) 7.0 0.0-12.0 % Eosinophils (%) (Auto) 3.3 0.0-7.0 % Basophils (%) (Auto) 0.6 0.0-2.0 % Neutrophils # (Auto) 3.8 1.6-8.6 10 ^3/uL Lymphocytes # (Auto) 1.9 0.4-5.4 10 ^3/uL Monocytes # (Auto) 0.4 0-1.3 10 ^3/uL Eosinophils # (Auto) 0.2 0-0.8 10 ^3/uL Basophils # (Auto) 0 0-0.2 10 ^3/uL Nucleated Red Blood Cells 0.0 % Sodium Level 145 136-145 mmol/L Potassium Level 4.2 3.5-5.1 mmol/L Chloride Level 104 98-107 mmol/L Carbon Dioxide Level 32 H 20-31 mmol/L Anion Gap 9 5-15 Blood Urea Nitrogen 31 H 9-23 mg/dL Creatinine 1.46 H 0.550-1.02 mg/dL Glomerular Filtration Rate Calc 36 >90 mL/min BUN/Creatinine Ratio 21.2 H 10.0-20.0 Serum Glucose 91 74-106 mg/dL Calcium Level 9.5 8.7-10.4 mg/dL Total Bilirubin 0.6 0.2-1.0 mg/dL Aspartate Amino Transferase (AST) 20 13-40 U/L Alanine Aminotransferase (ALT) 18 7-40 U/L Alkaline Phosphatase 99 46-116 U/L Total Protein 7.2 5.7-8.2 g/dL Albumin 4.8 3.2-4.8 g/dL Lipase 39 12-53 U/L SEPSIS Sepsis Screen Date sepsis recognized/suspect: Jan 31, 2025 Time Sepsis recognized/suspect: 0 Recent Procedure: No On Antibiotic Therapy: No Respiratory Rate >20: No Heart Rate >90: No Temp<36 C (96.8 F) or >38.3 C: No SBP <90 or MAP <65 mmHG: No New Acute Mental Status Change: No Is the patient on CPAP, BIPAP,: No Physician Orders Urinalysis (01/31/25 14:27) Ct Ab Pel Wo Con-No Oral Or Iv (01/31/25 14:27) Admit (01/31/25 17:15) Code Status (01/31/25 17:15) Vital Signs .PER UNIT PROTOCOL (01/31/25 17:15) Review Orders With Adm.Md (01/31/25 17:15) Sodium Chloride 0.9% (01/31/25 17:15) Acetaminophen Tablet (Tylenol Tablet) (01/31/25 17:15) Notify Md Of Changes From Base (01/31/25 17:15) Advance Directive (01/31/25 17:15) Urinalysis (01/31/25 17:15) Urine Bacterial Culture (01/31/25 17:15) Patient Condition (01/31/25 17:15) Allergies (01/31/25 17:15) Ambulate Every 4hours Q4H (01/31/25 17:15) Hemoglobin A1c (01/31/25 17:15) Oxygen By Nasal Cannula (01/31/25 17:15) Stat Ekg For Chest Pain (01/31/25 17:15) Notify Md Of Changes From Base (01/31/25 17:15) Hot Packer For 24 Hours (01/31/25 17:15) Emergency Dysrhythmia Protocol (01/31/25 17:15) Rhythm Strips Once Every Shift (01/31/25 17:15) Metronidazole 500mg/100ml (Flagyl 500mg/ (01/31/25 22:00) Amlodipine Tablet (Norvasc Tablet) (02/01/25 10:00) Aspirin Chewable Tablet (02/01/25 10:00) Clopidogrel Bisulfate (Plavix) (02/01/25 10:00) Atorvastatin (Lipitor) (01/31/25 22:00) Clear Liq Diet (01/31/25 Dinner) Ceftriaxone 1gm/50ml (Rocephin) (01/31/25 18:00) Vital Signs Date Time Temp Pulse Resp B/P (MAP) Pulse Ox O2 Delivery O2 Flow Rate FiO2 01/31/25 14:08 98.1 60 15 153/52 98 98.1 Laboratory Tests Test 01/31/25 14:44 White Blood Count 6.3 10^3/uL (4.4-10.8) Assessment/Plan Assessment/Plan 1. GI Acute intractable abdominal pain; LLQ pain likely secondary to mild diverticulitis vs constipation vs colitis CT shows diverticulosis without todd diverticulitis but significant stool burden; however, symptoms + LLQ focal tenderness + chills may still represent early/mild diverticulitis not radiographically apparent. No diarrhea to suggest colitis. No urinary symptoms; UA pending. No appendicitis. No SBO. Plan: Keep on clear liquid diet today; advance as tolerated. Start empiric antibiotics for suspected mild diverticulitis (ceftriaxone + metronidazole). Miralax ordered Pain control. If symptoms worsen or do not improve consider MRI A/P with contrast per primary team tomorrow. Cholelithiasis also found, but there is no pain on the RUQ 2. Renal Nonobstructing left renal calculus (6 mm) GRAY on CKD Left renal mass 1.7 cm No hydronephrosis. Stone appears chronic and nonobstructing. Cr 1.46 with BUN 31 suggests mild GRAY on CKD. No CVA tenderness. Plan: Continue IV hydration. Monitor BMP in AM. Strain urine. Follow UA. Primary team to determine need for MRI abdomen/pelvis due to renal mass found 3. Infectious Disease Possible early diverticulitis vs viral illness Afebrile. WBC normal. Chills reported. Plan: Start empiric antibiotics as above. Monitor for fever. Follow UA and consider urine culture if symptomatic. 4. Endocrine Diabetes mellitus type 2 A1c 5.4% 5. Cardiovascular CAD on DAPT, HTN, HLD Continue aspirin and clopidogrel. Continue amlodipine. Continue atorvastatin. 6. Pain management Plan: Acetaminophen scheduled. Avoid NSAIDs due to renal function. 7. Disposition Admit to medical floor for pain control, IV hydration, empiric antibiotics, and further evaluation. Primary team to determine need for MRI abdomen/pelvis due to renal mass found Case discussed with Dr Maddox Plan discussed with: Patient, Other (rn) My Orders Orders - MAMIE FLOREZ Procedure Category Date Status Time Admit ADMIT 01/31/25 Transmitted 17:15 Code Status CODE 01/31/25 Transmitted 17:15 Vital Signs JACIEL 01/31/25 In Process 17:15 Review Orders With JACIEL 01/31/25 In Process Adm. 17:15 Sodium Chloride 0.9% PHA 01/31/25 In Process 17:15 Acetaminophen Tablet PHA 01/31/25 In Process (Tylenol Tablet) 17:15 Notify Of Changes JACIEL 01/31/25 In Process From Base 17:15 Advance Directive JACIEL 01/31/25 In Process 17:15 Urinalysis LAB 01/31/25 Logged 17:15 Urine Bacterial ELADIA 01/31/25 Logged Culture 17:15 Patient Condition ORDERS 01/31/25 Transmitted 17:15 Allergies JACIEL 01/31/25 In Process 17:15 Ambulate Every 4hours JACIEL 01/31/25 In Process 17:15 Hemoglobin A1c LAB 01/31/25 In Process 17:15 Oxygen By Nasal RT 01/31/25 Transmitted Cannula 17:15 Stat Ekg For Chest JACIEL 01/31/25 In Process Pain 17:15 Notify Of Changes JACIEL 01/31/25 In Process From Base 17:15 Hot Packer For [facility] 01/31/25 In Process 24 Hours 17:15 Emergency Dysrhythmia JACIEL 01/31/25 In Process Protocol 17:15 Rhythm Strips Once JACIEL 01/31/25 In Process Every Shift 17:15 Metronidazole PHA 01/31/25 In Process 500mg/100ml (Flagyl 22:00 Amlodipine Tablet PHA 02/01/25 In Process (Norvasc Tablet) 10:00 Aspirin Chewable PHA 02/01/25 In Process Tablet 10:00 Clopidogrel Bisulfate PHA 02/01/25 In Process (Plavix) 10:00 Atorvastatin (Lipitor) PHA 01/31/25 In Process 22:00 Clear Liq Diet DIET 01/31/25 Transmitted Dinner Ceftriaxone 1gm/50ml PHA 01/31/25 In Process (Rocephin) 18:00 Date of Service: Jan 31, 2025 Billing Provider: TSERING MADDOX MD Common Visit Codes: [id number] INP/OBS CARE (HIGH) MAMIE FLOREZ RESIDENT Jan 31, 2025 18:01
[2025-01-31] MEDS: POLYETHYLENE GLYCOL 17 GM PWDR PO ONE (21:50)
[2025-01-31 22:27] VITALS: BP 149/78; PULSE 54; RESP 17; TEMP 97.6; O2SAT 98
[2025-01-31] MEDS: ATORVASTATIN 20 MG TAB PO SCH (23:35)
[2025-02-01] VITALS (8 sets, daily range): BP systolic 124–151; BP diastolic 63–79; PULSE 47–57; RESP 16–18; TEMP 97.5–98; O2SAT 96–98
[2025-02-01 06:38] LABS: Hematocrit 35.5 % (36.0-46.0); Hemoglobin 12.1 g/dL (12.2-16.2); Mean Corpuscular Hemoglobin 30.1 pg (28.0-32.0); Mean Corpuscular Volume 87.8 fL (80.0-100.0); Nucleated Red Blood Cells % 0.2 %
[2025-02-01 07:07] LABS: Alanine Aminotransferase 14 U/L (7-40); Albumin 4.0 g/dL (3.2-4.8); Alkaline Phosphatase 82 U/L (46-116); Anion Gap 10 (5-15); BUN/Creatinine Ratio 18.4 (10.0-20.0); Calcium 9.2 mg/dL (8.7-10.4); Carbon Dioxide 28 mmol/L (20-31); Chloride 105 mmol/L (98-107); Glucose 80 mg/dL (74-106); Potassium 3.7 mmol/L (3.5-5.1); Sodium 143 mmol/L (136-145); Total Protein 6.1 g/dL (5.7-8.2)
[2025-02-01 07:08] LABS: Bilirubin, Total 0.6 mg/dL (0.2-1.0)
[2025-02-01 07:18] LABS: Blood Urea Nitrogen 25 mg/dL (9-23)
[2025-02-01] MEDS: CLOPIDOGREL BISULFATE 75 MG TAB PO SCH (10:00)
[2025-02-01] MEDS: SODIUM CHLORIDE 0.9% 1,000 ML IV SCH (10:44)
--- NOTE | 2025-02-01 10:53 | DVH ---
CLINICAL HISTORY: GRAY, nephrolithiasis TECHNIQUE: Complete ultrasound exam of the kidneys and bladder was performed. COMPARISON: None FINDINGS: The right kidney has mildly increased echogenicity and measures 8 cm. There is no focal parenchymal abnormality or evidence for stone. There is no hydronephrosis. The left kidney has mildly increased echogenicity and measures 8.7 cm. There is a 1.7 cm cyst. There is a 4 mm nonobstructing renal calculus. There is no hydronephrosis. The bladder is grossly unremarkable. IMPRESSION: Small right kidney, mild increased echogenicity of the bilateral kidneys, most compatible with medical renal disease. 4 mm left renal nonobstructing calculus.
--- NOTE | 2025-02-01 10:59 | DVH ---
CHEST RADIOGRAPH Indication: CHF Technique: Single frontal view of the chest was obtained Comparison: XY CHEST TWO VIEWS ROUTINE on DOS: 11/19/24 FINDINGS: Lines and Tubes: None Lungs: No focal consolidation. Pleura: No effusion. No pneumothorax. Cardiomediastinal contours: Unremarkable Bones: No acute osseous abnormality. IMPRESSION: No acute cardiopulmonary disease.
[2025-02-01 12:41] LABS: Urine Protein, UAD Negative (Negative)
--- NOTE | 2025-02-01 13:52 | DVH ---
MRI Abdomen, without IV Contrast Exam Date: 02/01/2025 12:29 PM Comparison: CT CT AB PEL WO CON-NO ORAL OR IV on DOS: 01/31/25 History: Renal mass Technique: Multisequence multiplanar MRI images were obtained of the abomen. Findings: Liver: The liver is normal in size without focal lesions. Normal liver contour. Spleen: Unremarkable. Pancreas: The pancreas is normal in appearance without focal lesions. Gallbladder and ducts: Cholelithiasis. Mild gallbladder wall thickening and mild pericholecystic edema. The cystic duct, right and left hepatic ducts, common hepatic duct, and common bile ducts are unremarkable. The pancreatic duct is within normal limits. Adrenal glands: Unremarkable. Kidneys: Few punctate bilateral renal cysts. 1.4 cm T2 hyperintense probable cyst in the left midpole posterior kidney. This corresponds to lesion in question on CT dated 01/31/2025. No hydronephrosis. Visualized bowel: Grossly unremarkable. Vasculature: Unremarkable. Lymphadenopathy: No evidence for lymphadenopathy. Ascites: Absent. Musculoskeletal: Bone marrow signal is normal. IMPRESSION: Cholelithiasis with mild gallbladder wall thickening and pericholecystic edema. Correlate for acute cholecystitis. Probable left renal cyst (limited examination secondary to lack of intravenous contrast administration).
--- NOTE | 2025-02-01 14:38 | DVHPNRES ---
Progress Note Date Seen: Feb 01, 2025 Resident Creating Document: ROYCE BROOKE Medical Necessity Reason Pt with a Central, PICC or Fol: No Subjective Review of Systems Patient is a 84-year-old male with past medical history of hypertension, T2DM, CAD with [employer] recent NTEMI on 11/2024, mitral valve prolapse, HFrEF (LVEF 35%) not on GDMT due to allergies, Carpal tunnel syndrome and HLD presented to [facility] ED with complaint of acute intractable left lower quadrant abdominal pain. Two weeks ago, pain began as sharp, burning, constant in the left lower quadrant, radiating to the lower abdomen, and associated with constipation. Yesterday, the pain acutely worsened to 8/10 in intensity, prompting her to come to the ED. Pain remains sharp and non-radiating. She endorses chills but denies fever, vomiting, diarrhea, hematochezia, melena, dysuria, hematuria, flank pain, vaginal discharge, or bleeding. She had a normal bowel movement today. Reports poor appetite due to pain. No recent travel or sick contacts. Past surgical history: Carpal tunnel repair, right hip replacement, hysterectomy, appendectomy, herniated disc surgery, cataract surgery Home medications: Clopidogrel, aspirin, amlodipine, atorvastatin Social & Personal history: Denies current tobacco, alcohol and other drug abuse. Allergy: Clonidine, lisinopril, losartan, metoprolol, ondansetron, valsartan Patient seen and examined at bedside. Patient is alert and oriented to time, place person and responding to all questions. Eyes: No Pain, No Vision change, No Conjunctivae inflammation, No Eyelid inflammation, No Other, No Redness ENT: No Ear pain, No Ear discharge, No Nose pain, No Nose discharge, No Nose congestion, No Mouth pain, No Mouth swelling, No Throat pain, No Throat swelling, No Other Cardiovascular: No Chest Pain, No Palpitations, No Orthopnea, No Paroxysmal No Dyspnea, No Edema, No Lt Headedness, No Other Respiratory: No Cough, No Dry, No Shortness of breath, No SOB with exertion, No Wheezing, No Hemoptysis, No Pleuritic Pain, No Sputum, No Other Gastrointestinal: Nausea, No Vomiting, Abdominal Pain, No Diarrhea, C onstipation, No Melena, No Hematochezia, No Other Genitourinary: No Dysuria, No Frequency, No Incontinence, No Hematuria, No Retention, No Other Musculoskeletal: No other, No neck pain, No shoulder pain, No arm pain, No back pain, No hand pain, No leg pain, No foot pain Skin: No Rash, No Lesions, No Jaundice, No Bruising, No Other Objective vital signs Vital Sign Date Time Temp Pulse Resp B/P (MAP) Pulse Ox O2 Delivery O2 Flow Rate FiO2 02/01/25 08:15 Room Air* 0 21 02/01/25 05:00 97.8 54 17 132/68 (89) 97 97.8 Total Intake and Output 01/31/25 01/31/25 02/01/25 15:00 23:00 07:00 Intake Total 676 ml Balance 676 ml medications Current Medications Medications Dose Ordered Sig/Aparna Route Start Time Stop Time Status Last Admin Dose Admin Sodium Chloride 1,000 ml @ 60 mls/hr [id number] IV 01/31/25 17:15 Acetaminophen 650 mg Q6HP PRN PO 01/31/25 17:15 Ceftriaxone Sodium 50 ml @ 100 mls/hr DAILY@09 IV 01/31/25 18:00 02/01/25 10:42 100 MLS/HR Metronidazole 100 ml @ 100 mls/hr Q8HR IV 01/31/25 22:00 02/01/25 05:26 100 MLS/HR Amlodipine Besylate 5 mg DAILY PO 02/01/25 10:00 Aspirin 81 mg DAILY PO 02/01/25 10:00 02/01/25 10:59 81 MG Clopidogrel Bisulfate 75 mg DAILY PO 02/01/25 10:00 Atorvastatin Calcium 10 mg HS PO 01/31/25 22:00 01/31/25 23:35 10 MG Sodium Chloride 1,000 ml @ 60 mls/hr [id number] IV 02/01/25 10:00 02/01/25 10:44 60 MLS/HR Tamsulosin HCl 0.4 mg QPM PO 02/01/25 18:00 Examination General Appearance: Cooperative. Well developed. Well nourished. NAD Head Exam: Normal inspection Neck Exam: Normal inspection. Non-tender. Normal alignment Pulmonary/Respiratory: Chest non-tender. Clear bilateral breath sounds, no crackles, no wheezing. Cardiovascular/Chest: Regular rate and rhythm. No murmurs. No JVD. Peripheral Pulses: 2+ Radial (R). 2+ Radial (L). 2+ Pedal (R). 2+ Pedal (L) Abdominal Exam: Soft, LLQ tenderness to palpation, no guarding, no rebound, non-distended, positive bowel sounds. No CVA tenderness bilaterally, negative Dennis's sign Ankle Exam: Negative ankle edema Lower extremities: Negative lower extremity edema Neuro/Mental Status: A&O x4. Coherent. Thoughts/Psych: Normal thought pattern. Appropriate mood and affect. Good judgement and insight Skin Exam: Normal inspection. Normal color. Warm. Dry laboratory and microbiology Laboratory Tests 02/01/25 05:22 Test 02/01/25 05:22 Range/Units Serum Glucose 80 74-106 mg/dL Labs and/or images reviewed: Labs reviewed by me, Image(s) reviewed by me Problem List/Assessment/Plan Problem List/Assessment/Plan #Acute cholecystitis #Cholelithiasis with mild gallbladder wall thickening and pericholecystic edema #Colonic diverticular disease #Diverticulosis without todd diverticulitis #Constipation Abdominal MRI: Cholelithiasis with mild gallbladder wall thickening and pericholecystic edema. Chest X-ray: No acute cardiopulmonary disease. Abdomen/Pelvis CT: Colonic diverticular disease. Moderate volume stool in the colon. Cholelithiasis. Atherosclerotic disease. pain management with Tylenol and Egnar Ceftriaxone 1 GM IV daily Metronidazole IV q8h IV NS 60 MLS/HR Sodium chloride 0.9% IV 60 MLS/HR Urine bacterial culture metoclopramide 5 MG IV once Miralax 17 GM PO once #Probable left renal cyst #Nonobstructing left renal calculus Abdominal MRI: Probable left renal cyst Renal US: Small right kidney, mild increased echogenicity of the bilateral kidneys, most compatible with medical renal disease. 4 mm left renal nonobstructing calculus. Abdomen/Pelvis CT: Nonobstructing left renal calculus measuring 6 mm. Left renal indeterminate lesion measuring 1.7 cm. Atherosclerotic disease. Flomax 0.4 MG PO qpm #Coronary artery disease with recent NSTEMI - s/p angiogram with no PCI ([employer] PDA) on dual antiplatelet therapy #Mitral valve prolapse #Chronic systolic congestive heart failure (HFrEF, LVEF 35%), not exacerbated Aspirin 81 MG PO daily, Clopidogrel 75 MG PO daily and atorvastatin Patient is not on GDMT due to allergies to lisinopril, losartan, metoprolol and valsartan. Indicated empagliflozin #Hypertension Amlodipine 5 MG PO daily #GRAY due to VMN Cr 1.46 with BUN 31 Continue IV hydration Monitor renal function Avoid nephrotoxic drugs #Mixed dyslipidemia Atorvastatin 10 MG PO daily #Type 2 diabetes mellitus, controlled A1c 5.4% monitor Diet: Clear liquid Goals of care: Full code Plan discussed with patient Plan discussed with Dr. Maddox Plan discussed with: Patient, Other (RN) My Orders My Orders Orders - ROYCE BROOKE Procedure Category Date Status Time Electrocardigram EKG 02/01/25 Logged 11:32 Complete Blood Count LAB 02/02/25 Verified 04:00 Basic Metabolic Panel LAB 02/02/25 Verified 04:00 Visit Coding STANDARD RES Billing Provider: TSERING MADDOX MD Date of Service if different f: Feb 01, 2025 Common Visit Codes: [id number] INP/OBS CARE(HIGH) ROYCE BROOKE RESIDENT Feb 01, 2025 14:38 EVA ROBLES RESIDENT Feb 01, 2025 19:46
[2025-02-01] MEDS: TAMSULOSIN HYDROCHLORIDE 0.4 MG CAP PO SCH (18:07)
[2025-02-01] MEDS: HYDROcodone-ACET 7.5/325MG TAB PO PRN (18:08)
[2025-02-01] MEDS: METOCLOPRAMIDE HCL 5MG/ml INJ 2ml VIAL IV ONE (18:08)
[2025-02-01] MEDS: PANTOPRAZOLE 40 MG/10 ML VIAL INJ IV ONE (20:29)
[2025-02-01] MEDS ORDERED: MONT-8 PO (20:39)
[2025-02-01] MEDS ORDERED: ATOR20TA50 PO (20:39)
[2025-02-01] MEDS ORDERED: ALEN70TA74 PO (20:39)
[2025-02-01] MEDS ORDERED: AMLO1TAB22 PO (20:39)
[2025-02-01] MEDS ORDERED: PANT40TA2 PO (20:39)
[2025-02-01] MEDS ORDERED: FLUT250M2 INH (20:39)
[2025-02-01] MEDS ORDERED: PRAS10TA8 PO (20:39)
[2025-02-02] VITALS (7 sets, daily range): BP systolic 124–163; BP diastolic 65–88; PULSE 57–75; RESP 16–20; TEMP 96.8–98.1; O2SAT 96–97
[2025-02-02 05:11] LABS: Hematocrit 32.9 % (36.0-46.0); Hemoglobin 11.4 g/dL (12.2-16.2); Mean Corpuscular Hemoglobin 30.2 pg (28.0-32.0); Mean Corpuscular Volume 87.5 fL (80.0-100.0); Nucleated Red Blood Cells % 0.1 %
[2025-02-02 05:19] LABS: Chloride 105 mmol/L (98-107); Sodium 144 mmol/L (136-145)
[2025-02-02 05:20] LABS: Anion Gap 11 (5-15); Carbon Dioxide 28 mmol/L (20-31)
[2025-02-02 05:22] LABS: Calcium 8.6 mg/dL (8.7-10.4); Potassium 3.2 mmol/L (3.5-5.1)
[2025-02-02 05:25] LABS: BUN/Creatinine Ratio 13.3 (10.0-20.0); Blood Urea Nitrogen 15 mg/dL (9-23); Glucose 90 mg/dL (74-106)
--- NOTE | 2025-02-02 07:22 | ECG ---
[facility] Test Date: 2025-02-01 Test Time: 19:08:55 Pat Name: CHRISTY ASIF Department: Room: 0218 Gender: F [employer]: ben[place] : 1940 Requested By: ROYCE YOU Order Number: [id number] Reading MD: Rober Hudson Measurements Intervals [place] Rate: 59 P: 46 LA: 173 QRS: 33 QRSD: 104 T: 80 QT: 507 QTc: 503 Interpretive Statements Sinus rhythm Probable anteroseptal infarct, recent Minimal ST elevation, inferior leads Prolonged QT interval Electronically Signed On 02-03-2025 11:11:22 PST by Rober Hudson Please click the below link to view image of tracing.
[2025-02-02] MEDS ORDERED: POTASSIUM EFFERVESENT TAB 25 MEQ PO ONE (08:30)
[2025-02-02] MEDS: EMPAGLIFLOZIN 10 MG TAB PO SCH (08:45)
[2025-02-02] MEDS: PANTOPRAZOLE 40 MG/10 ML VIAL INJ IV SCH (08:45)
[2025-02-02] MEDS: POTASSIUM CHL 20MEQ/100ML 100 ML IV ONE (09:00)
[2025-02-02 10:07] LABS: Magnesium 1.5 mg/dL (1.6-2.6)
[2025-02-02 10:34] LABS: INR 1.03 (0.9-1.15); Partial Thromboplastin Time 26.5 SEC (24.5-34.5); Prothrombin Time 10.9 sec (9.3-11.8)
[2025-02-02] MEDS: MAGNESIUM SULFATE 1GM/100ML 100 ML IV SCH (13:06)
[2025-02-02] MEDS: ACETAMINOPHEN 325 MG TAB PO PRN (13:10)
--- NOTE | 2025-02-02 13:51 | DVH ---
Procedure: NM NM HIDA SCAN Exam Date: 02/02/2025 12:04 PM Clinical History: cholecystitis Comparison Study: None Nuclear Medicine Hepatobiliary Scan. Technique: Following the intravenous administration of 6 mCi of technetium 99m labeled Choletec multiple planar abdominal planar images were obtained in anterior projection in 5 minute intervals for 30 minutes . Right lateral images were obtained at 30 minutes after injection. Findings: The liver appears grossly normal in size. There is no abnormal persistence of the cardiac or blood pool activity. There is prompt visualization of the gallbladder and excretion of activity into the small bowel. Impression: Unremarkable hepatobiliary study without evidence of acute cholecystitis.
--- NOTE | 2025-02-02 16:41 | DVHPNRES ---
Progress Note Date Seen: Feb 02, 2025 Resident Creating Document: ROYCE BROOKE Medical Necessity Reason Pt with a Central, PICC or Fol: No Subjective Review of Systems Patient is a 84-year-old male with past medical history of hypertension, T2DM, CAD with BOOK SHELVER recent NTEMI on 11/2024, mitral valve prolapse, HFrEF (LVEF 35%) not on GDMT due to allergies, Carpal tunnel syndrome and HLD presented to [facility] ED with complaint of acute intractable left lower quadrant abdominal pain. Two weeks ago, pain began as sharp, burning, constant in the left lower quadrant, radiating to the lower abdomen, and associated with constipation. Yesterday, the pain acutely worsened to 8/10 in intensity, prompting her to come to the ED. Pain remains sharp and non-radiating. She endorses chills but denies fever, vomiting, diarrhea, hematochezia, melena, dysuria, hematuria, flank pain, vaginal discharge, or bleeding. She had a normal bowel movement today. Reports poor appetite due to pain. No recent travel or sick contacts. On 02/02/25, The patient was low magnesium and potassium levels, which were replaced. A surgical consult was obtained for gallstones. A HIDA scan was performed to evaluate for cholecystitis, and the results ruled out acute cholecystitis. Care remains ongoing. Past surgical history: Carpal tunnel repair, right hip replacement, hysterectomy, appendectomy, herniated disc surgery, cataract surgery Home medications: Clopidogrel, aspirin, amlodipine, atorvastatin Social & Personal history: Denies current tobacco, alcohol and other drug abuse. Allergy: Clonidine, lisinopril, losartan, metoprolol, ondansetron, valsartan Patient seen and examined at bedside. Patient is alert and oriented to time, place person and responding to all questions. Eyes: No Pain, No Vision change, No Conjunctivae inflammation, No Eyelid inflammation, No Other, No Redness ENT: No Ear pain, No Ear discharge, No Nose pain, No Nose discharge, No Nose congestion, No Mouth pain, No Mouth swelling, No Throat pain, No Throat swelling, No Other Cardiovascular: No Chest Pain, No Palpitations, No Orthopnea, No Paroxysmal No Dyspnea, No Edema, No Lt Headedness, No Other Respiratory: No Cough, No Dry, No Shortness of breath, No SOB with exertion, No Wheezing, No Hemoptysis, No Pleuritic Pain, No Sputum, No Other Gastrointestinal: Nausea, No Vomiting, Abdominal Pain, No Diarrhea, C onstipation, No Melena, No Hematochezia, No Other Genitourinary: No Dysuria, No Frequency, No Incontinence, No Hematuria, No Retention, No Other Musculoskeletal: No other, No neck pain, No shoulder pain, No arm pain, No back pain, No hand pain, No leg pain, No foot pain Skin: No Rash, No Lesions, No Jaundice, No Bruising, No Other Objective vital signs Vital Sign Date Time Temp Pulse Resp B/P (MAP) Pulse Ox O2 Delivery O2 Flow Rate FiO2 02/02/25 13:00 97.9 75 18 145/73 (97) 97 97.9 02/02/25 08:00 Room Air* 0 21 Total Intake and Output 02/01/25 02/01/25 02/02/25 15:00 23:00 07:00 Intake Total 550 ml 775 ml 200 ml Output Total 200 ml 550 ml Balance 350 ml 225 ml 200 ml medications Current Medications Medications Dose Ordered Sig/Aparna Route Start Time Stop Time Status Last Admin Dose Admin Acetaminophen 650 mg Q6HP PRN PO 01/31/25 17:15 02/02/25 13:10 650 MG Ceftriaxone Sodium 50 ml @ 100 mls/hr DAILY@09 IV 01/31/25 18:00 02/02/25 08:44 100 MLS/HR Metronidazole 100 ml @ 100 mls/hr Q8HR IV 01/31/25 22:00 02/02/25 13:05 100 MLS/HR Amlodipine Besylate 5 mg DAILY PO 02/01/25 10:00 02/02/25 08:46 5 MG Aspirin 81 mg DAILY PO 02/01/25 10:00 02/02/25 08:45 81 MG Clopidogrel Bisulfate 75 mg DAILY PO 02/01/25 10:00 02/02/25 08:45 75 MG Atorvastatin Calcium 10 mg HS PO 01/31/25 22:00 02/01/25 21:25 10 MG Sodium Chloride 1,000 ml @ 60 mls/hr [id number] IV 02/01/25 10:00 02/02/25 04:44 60 MLS/HR Tamsulosin HCl 0.4 mg QPM PO 02/01/25 18:00 02/01/25 18:07 0.4 MG Acetaminophen/ Hydrocodone Bitart 1 tab Q6HP PRN PO 02/01/25 17:00 02/02/25 08:55 1 TAB Pantoprazole Sodium 40 mg DAILY IV 02/02/25 10:00 02/02/25 08:45 40 MG Empaglifozin 10 mg DAILY PO 02/02/25 10:00 02/02/25 08:45 10 MG Examination General Appearance: Cooperative. Well developed. Well nourished. NAD Head Exam: Normal inspection Neck Exam: Normal inspection. Non-tender. Normal alignment Pulmonary/Respiratory: Chest non-tender. Clear bilateral breath sounds, no crackles, no wheezing. Cardiovascular/Chest: Regular rate and rhythm. No murmurs. No JVD. Peripheral Pulses: 2+ Radial (R). 2+ Radial (L). 2+ Pedal (R). 2+ Pedal (L) Abdominal Exam: Soft, LLQ tenderness to palpation, no guarding, no rebound, non-distended, positive bowel sounds. No CVA tenderness bilaterally, negative Dennis's sign Ankle Exam: Negative ankle edema Lower extremities: Negative lower extremity edema Neuro/Mental Status: A&O x4. Coherent. Thoughts/Psych: Normal thought pattern. Appropriate mood and affect. Good judgement and insight Skin Exam: Normal inspection. Normal color. Warm. Dry laboratory and microbiology Laboratory Tests 02/02/25 04:35 Test 02/02/25 04:35 Range/Units Serum Glucose 90 74-106 mg/dL Microbiology Date/Time Source Procedure Growth Status 02/01/25 12:16 Voided Urine Urine Culture - Preliminary No growth Resulted Labs and/or images reviewed: Labs reviewed by me, Image(s) reviewed by me Problem List/Assessment/Plan Problem List/Assessment/Plan #Cholelithiasis with mild gallbladder wall thickening and pericholecystic edema #Colonic diverticular disease #Diverticulosis without todd diverticulitis #Constipation #Acute cholecystitis, ruled out HIDA scan: No evidence of acute cholecystitis. The hepatobiliary study was unremarkable, showing prompt visualization of the gallbladder and normal excretion into the small bowel, which rules out acute cholecystitis. Abdominal MRI: Cholelithiasis with mild gallbladder wall thickening and pericholecystic edema. Chest X-ray: No acute cardiopulmonary disease. Abdomen/Pelvis CT: Colonic diverticular disease. Moderate volume stool in the colon. Cholelithiasis. Atherosclerotic disease. pain management with Tylenol and [place] Ceftriaxone 1 GM IV daily Metronidazole IV q8h IV NS 60 MLS/HR Sodium chloride 0.9% IV 60 MLS/HR Urine Bacterial Culture No growth Metoclopramide 5 MG IV once Miralax 17 GM PO once Magnesium IV q1hr #Probable left renal cyst #Nonobstructing left renal calculus Abdominal MRI: Probable left renal cyst Renal US: Small right kidney, mild increased echogenicity of the bilateral kidneys, most compatible with medical renal disease. 4 mm left renal nonobstructing calculus. Abdomen/Pelvis CT: Nonobstructing left renal calculus measuring 6 mm. Left renal indeterminate lesion measuring 1.7 cm. Atherosclerotic disease. Flomax 0.4 MG PO qpm #Coronary artery disease #status post angiogram (BOOK SHELVER of PDA) on dual antiplatelet therapy #Mitral valve prolapse Aspirin 81 MG PO daily Clopidogrel 75 MG PO daily #Hypertension Amlodipine 5 MG PO daily #GRAY due to VMN Cr 1.46 with BUN 31 Continue IV hydration Monitor renal function Avoid nephrotoxic drugs #Mixed dyslipidemia Atorvastatin 10 MG PO daily #Type 2 diabetes mellitus, controlled A1c 5.4% monitor Diet: Clear liquid Goals of care: Full code Plan discussed with patient Plan discussed with Dr. Maddox Plan discussed with: Patient, Other (RN) My Orders My Orders Orders - ROYCE BROOKE Procedure Category Date Status Time Hydrocodone-Acet PHA 02/01/25 In Process 7.5/325mg Tab ([place] 17:00 Clear Liq Diet DIET 02/02/25 Transmitted Dinner Visit Coding STANDARD RES Billing Provider: TSERING MADDOX MD Date of Service if different f: Feb 02, 2025 Common Visit Codes: [id number] INP/OBS CARE(HIGH) ROYCE BROOKE RESIDENT Feb 02, 2025 16:41
[2025-02-03] VITALS (7 sets, daily range): BP systolic 131–157; BP diastolic 66–93; PULSE 58–65; RESP 16–17; TEMP 97.9–98.4; O2SAT 96–97
[2025-02-03 06:09] LABS: Chloride 103 mmol/L (98-107); Sodium 142 mmol/L (136-145)
[2025-02-03 06:10] LABS: Anion Gap 11 (5-15); Carbon Dioxide 28 mmol/L (20-31)
[2025-02-03 06:11] LABS: Calcium 9.0 mg/dL (8.7-10.4)
[2025-02-03 06:13] LABS: Potassium 2.7 mmol/L (3.5-5.1)
[2025-02-03 06:15] LABS: BUN/Creatinine Ratio 8.8 (10.0-20.0); Blood Urea Nitrogen 10 mg/dL (9-23); Glucose 97 mg/dL (74-106); Hematocrit 34.8 % (36.0-46.0); Hemoglobin 12.1 g/dL (12.2-16.2); Mean Corpuscular Hemoglobin 30.0 pg (28.0-32.0); Mean Corpuscular Volume 86.4 fL (80.0-100.0); Nucleated Red Blood Cells % 0.1 %
[2025-02-03] MEDS: POTASSIUM CHL 20 Meq TABLET PO ONE (06:46)
[2025-02-03] MEDS: POTASSIUM CHL 20MEQ/100ML 100 ML IV ONE (08:15)
[2025-02-03] MEDS ORDERED: MAGNESIUM SULFATE 1GM/100ML 100 ML IV SCH (11:00)
--- NOTE | 2025-02-03 16:12 | DVHPNRES ---
Progress Note Date Seen: Feb 03, 2025 Resident Creating Document: ROYCE BROOKE Medical Necessity Reason Pt with a Central, PICC or Fol: No Subjective Review of Systems Patient is a 84-year-old male with past medical history of hypertension, T2DM, CAD with [employer] recent NTEMI on 11/2024, mitral valve prolapse, HFrEF (LVEF 35%) not on GDMT due to allergies, Carpal tunnel syndrome and HLD presented to [facility] ED with complaint of acute intractable left lower quadrant abdominal pain. Two weeks ago, pain began as sharp, burning, constant in the left lower quadrant, radiating to the lower abdomen, and associated with constipation. Yesterday, the pain acutely worsened to 8/10 in intensity, prompting her to come to the ED. Pain remains sharp and non-radiating. She endorses chills but denies fever, vomiting, diarrhea, hematochezia, melena, dysuria, hematuria, flank pain, vaginal discharge, or bleeding. She had a normal bowel movement today. Reports poor appetite due to pain. No recent travel or sick contacts. On 02/02/25, The patient was low magnesium and potassium levels, which were replaced. A surgical consult was obtained for gallstones. A HIDA scan was performed to evaluate for cholecystitis, and the results ruled out acute cholecystitis. Care remains ongoing. On 02/03/25, Potassium level was 2.7 and was replaced. Patient complained of diarrhea since yesterday, two episodes. The patient is being evaluated for possible Clostridioides difficile infection. Past surgical history: Carpal tunnel repair, right hip replacement, hysterectomy, appendectomy, herniated disc surgery, cataract surgery Home medications: Clopidogrel, aspirin, amlodipine, atorvastatin Social & Personal history: Denies current tobacco, alcohol and other drug abuse. Allergy: Clonidine, lisinopril, losartan, metoprolol, ondansetron, valsartan Patient seen and examined at bedside. Patient is alert and oriented to time, place person and responding to all questions. Eyes: No Pain, No Vision change, No Conjunctivae inflammation, No Eyelid inflammation, No Other, No Redness ENT: No Ear pain, No Ear discharge, No Nose pain, No Nose discharge, No Nose congestion, No Mouth pain, No Mouth swelling, No Throat pain, No Throat swelling, No Other Cardiovascular: No Chest Pain, No Palpitations, No Orthopnea, No Paroxysmal No Dyspnea, No Edema, No Lt Headedness, No Other Respiratory: No Cough, No Dry, No Shortness of breath, No SOB with exertion, No Wheezing, No Hemoptysis, No Pleuritic Pain, No Sputum, No Other Gastrointestinal: Nausea, No Vomiting, Abdominal Pain, No Diarrhea, C onstipation, No Melena, No Hematochezia, No Other Genitourinary: No Dysuria, No Frequency, No Incontinence, No Hematuria, No Retention, No Other Musculoskeletal: No other, No neck pain, No shoulder pain, No arm pain, No back pain, No hand pain, No leg pain, No foot pain Skin: No Rash, No Lesions, No Jaundice, No Bruising, No Other Objective vital signs Vital Sign Date Time Temp Pulse Resp B/P (MAP) Pulse Ox O2 Delivery O2 Flow Rate FiO2 02/03/25 13:00 97.9 59 17 152/71 (98) 97 97.9 02/03/25 07:50 Room Air* 0 21 Total Intake and Output 02/02/25 02/02/25 02/03/25 15:00 23:00 07:00 Intake Total 350 ml 450 ml 400 ml Output Total 1350 ml 1350 ml Balance 350 ml -900 ml -950 ml medications Current Medications Medications Dose Ordered Sig/Aparna Route Start Time Stop Time Status Last Admin Dose Admin Acetaminophen 650 mg Q6HP PRN PO 01/31/25 17:15 02/03/25 08:31 650 MG Ceftriaxone Sodium 50 ml @ 100 mls/hr DAILY@09 IV 01/31/25 18:00 02/03/25 08:14 100 MLS/HR Metronidazole 100 ml @ 100 mls/hr Q8HR IV 01/31/25 22:00 02/03/25 14:12 100 MLS/HR Amlodipine Besylate 5 mg DAILY PO 02/01/25 10:00 02/03/25 08:32 5 MG Aspirin 81 mg DAILY PO 02/01/25 10:00 02/03/25 08:31 81 MG Clopidogrel Bisulfate 75 mg DAILY PO 02/01/25 10:00 02/03/25 08:31 75 MG Atorvastatin Calcium 10 mg HS PO 01/31/25 22:00 02/02/25 21:43 10 MG Tamsulosin HCl 0.4 mg QPM PO 02/01/25 18:00 02/02/25 17:22 0.4 MG Acetaminophen/ Hydrocodone Bitart 1 tab Q6HP PRN PO 02/01/25 17:00 02/02/25 21:44 1 TAB Pantoprazole Sodium 40 mg DAILY IV 02/02/25 10:00 02/03/25 08:32 40 MG Empaglifozin 10 mg DAILY PO 02/02/25 10:00 02/03/25 08:31 10 MG Examination General Appearance: Cooperative. Well developed. Well nourished. NAD Head Exam: Normal inspection Neck Exam: Normal inspection. Non-tender. Normal alignment Pulmonary/Respiratory: Chest non-tender. Clear bilateral breath sounds, no crackles, no wheezing. Cardiovascular/Chest: Regular rate and rhythm. No murmurs. No JVD. Peripheral Pulses: 2+ Radial (R). 2+ Radial (L). 2+ Pedal (R). 2+ Pedal (L) Abdominal Exam: Soft, LLQ tenderness to palpation, no guarding, no rebound, non-distended, positive bowel sounds. No CVA tenderness bilaterally, negative Dennis's sign Ankle Exam: Negative ankle edema Lower extremities: Negative lower extremity edema Neuro/Mental Status: A&O x4. Coherent. Thoughts/Psych: Normal thought pattern. Appropriate mood and affect. Good judgement and insight Skin Exam: Normal inspection. Normal color. Warm. Dry laboratory and microbiology Laboratory Tests 02/03/25 05:14 Test 02/03/25 05:14 Range/Units Serum Glucose 97 74-106 mg/dL Microbiology Date/Time Source Procedure Growth Status 02/01/25 12:16 Voided Urine Urine Culture - Final Complete Labs and/or images reviewed: Labs reviewed by me, Image(s) reviewed by me Problem List/Assessment/Plan Problem List/Assessment/Plan #Cholelithiasis with mild gallbladder wall thickening and pericholecystic edema #Colonic diverticular disease #Diverticulosis without todd diverticulitis #Constipation #Acute cholecystitis, ruled out HIDA scan: No evidence of acute cholecystitis. The hepatobiliary study was unremarkable, showing prompt visualization of the gallbladder and normal excretion into the small bowel, which rules out acute cholecystitis. Abdominal MRI: Cholelithiasis with mild gallbladder wall thickening and pericholecystic edema. Chest X-ray: No acute cardiopulmonary disease. Abdomen/Pelvis CT: Colonic diverticular disease. Moderate volume stool in the colon. Cholelithiasis. Atherosclerotic disease. pain management with Tylenol and [place] Ceftriaxone 1 GM IV daily Metronidazole IV q8h IV NS 60 MLS/HR Sodium chloride 0.9% IV 60 MLS/HR Urine Bacterial Culture No growth Metoclopramide 5 MG IV once Miralax 17 GM PO once Surgical consult: Patient needs to be of Jardiance for 3 days before elective operation. waiting for cardiac clearance Cardiology consult #possible Clostridioides difficile infection Stool WBC Stool bacterial culture Stool Cdiff #Probable left renal cyst #Nonobstructing left renal calculus Abdominal MRI: Probable left renal cyst Renal US: Small right kidney, mild increased echogenicity of the bilateral kidneys, most compatible with medical renal disease. 4 mm left renal nonobstructing calculus. Abdomen/Pelvis CT: Nonobstructing left renal calculus measuring 6 mm. Left renal indeterminate lesion measuring 1.7 cm. Atherosclerotic disease. Flomax 0.4 MG PO qpm #Coronary artery disease #status post angiogram ([employer] of PDA) on dual antiplatelet therapy #Mitral valve prolapse Aspirin 81 MG PO daily Clopidogrel 75 MG PO daily #Hypertension Amlodipine 5 MG PO daily #GRAY due to VMN Cr 1.13 with BUN 10 Continue IV hydration Monitor renal function Avoid nephrotoxic drugs #Mixed dyslipidemia Atorvastatin 10 MG PO daily #Type 2 diabetes mellitus, controlled A1c 5.4% monitor #Hypomagnesemia #Hypokalemia Magnesium IV q1hr Potassium 2.7 Potasium 60 MEQ PO once Postassium Chl 20 IV Once Diet: NPO except ice chips Goals of care: Full code Plan discussed with patient Plan discussed with Dr. Maddox Plan discussed with: Patient, Other (RN) Visit Coding STANDARD RES Billing Provider: TSERING MADDOX MD Date of Service if different f: Feb 03, 2025 Common Visit Codes: [id number] INP/OBS CARE(HIGH) ROYCE BROOKE RESIDENT Feb 03, 2025 16:12
[2025-02-04] VITALS (7 sets, daily range): BP systolic 137–156; BP diastolic 58–85; PULSE 56–80; RESP 16–20; TEMP 97.4–98.5; O2SAT 95–98
[2025-02-04 06:30] LABS: Hematocrit 38.1 % (36.0-46.0); Hemoglobin 13.1 g/dL (12.2-16.2); Mean Corpuscular Hemoglobin 30.2 pg (28.0-32.0); Mean Corpuscular Volume 88.0 fL (80.0-100.0); Nucleated Red Blood Cells % 0.0 %
[2025-02-04 06:42] LABS: Anion Gap 12 (5-15); Carbon Dioxide 25 mmol/L (20-31); Chloride 105 mmol/L (98-107); Sodium 142 mmol/L (136-145)
[2025-02-04 06:43] LABS: Calcium 9.4 mg/dL (8.7-10.4)
[2025-02-04 06:46] LABS: Potassium 3.2 mmol/L (3.5-5.1)
[2025-02-04 06:48] LABS: BUN/Creatinine Ratio 6.1 (10.0-20.0); Glucose 97 mg/dL (74-106)
[2025-02-04 06:49] LABS: Magnesium 1.7 mg/dL (1.6-2.6)
[2025-02-04 07:06] LABS: Blood Urea Nitrogen 7 mg/dL (9-23)
[2025-02-04] MEDS: POTASSIUM EFFERVESENT TAB 25 MEQ PO ONE (08:43)
--- NOTE | 2025-02-04 09:34 | DVHPN2 ---
Progress Note Date Seen: Feb 04, 2025 Medical Necessity Reason Pt with a Central, PICC or Fol: No Objective vital signs Vital Sign Date Time Temp Pulse Resp B/P (MAP) Pulse Ox O2 Delivery O2 Flow Rate FiO2 02/04/25 09:00 97.5 56 16 153/73 (99) 97 97.5 02/03/25 20:00 Room Air* 0 21 Total Intake and Output 02/03/25 02/03/25 02/04/25 15:00 23:00 07:00 Intake Total 150 ml 610 ml 710 ml Output Total 1000 ml 650 ml Balance 150 ml -390 ml 60 ml medications Current Medications Medications Dose Ordered Sig/Aparna Route Start Time Stop Time Status Last Admin Dose Admin Acetaminophen 650 mg Q6HP PRN PO 01/31/25 17:15 02/03/25 08:31 650 MG Ceftriaxone Sodium 50 ml @ 100 mls/hr DAILY@09 IV 01/31/25 18:00 02/04/25 08:41 100 MLS/HR Metronidazole 100 ml @ 100 mls/hr Q8HR IV 01/31/25 22:00 02/04/25 05:31 100 MLS/HR Amlodipine Besylate 5 mg DAILY PO 02/01/25 10:00 02/04/25 08:42 5 MG Aspirin 81 mg DAILY PO 02/01/25 10:00 02/04/25 08:42 81 MG Clopidogrel Bisulfate 75 mg DAILY PO 02/01/25 10:00 02/04/25 08:41 75 MG Atorvastatin Calcium 10 mg HS PO 01/31/25 22:00 02/02/25 21:43 10 MG Tamsulosin HCl 0.4 mg QPM PO 02/01/25 18:00 02/03/25 17:31 0.4 MG Acetaminophen/ Hydrocodone Bitart 1 tab Q6HP PRN PO 02/01/25 17:00 02/02/25 21:44 1 TAB Pantoprazole Sodium 40 mg DAILY IV 02/02/25 10:00 02/04/25 08:41 40 MG Empaglifozin 10 mg DAILY PO 02/02/25 10:00 02/03/25 08:31 10 MG laboratory and microbiology Laboratory Tests 02/04/25 05:54 Test 02/04/25 05:54 Range/Units Serum Glucose 97 74-106 mg/dL Problem List/Assessment/Plan Problem List/Assessment/Plan 02/04/[age] year old female frail appearing, multiple co morbidities,initially diagnosed with cholecystitis, no pain,no nausea, hida scan normal, no evidfence of cholecystitis now, she is taking jardiance and would need to off for a few days for an elective operation, recommend treating conservatively and if repeat episodes of ruq pain return to clinic to plan elective cholecystectomy. No indication for emergency intervention Plan discussed with: Patient MARIA ALEJANDRA PARSONS MD Feb 04, 2025 09:34
--- NOTE | 2025-02-04 10:26 | DVHINCON2 ---
Date of service: Feb 04, 2025 History of Present Illness HPI Patient is a 84-year-old female who originally presented to the hospital on January 31, 2025 for abdominal pain which was ongoing for 2-3 weeks before presentation. She has been cared on telemetry for. Originally assessment was possible cholecystitis. She was found to have gallstones. Later on, HIDA scan was negative and cholecystitis was not considered. Patient may have had some diverticulitis which has improved since admission. Cardiology is involved for cardiac aspects of care on February 04, 2025. There has been no report of chest pain. Patient herself denies any chest discomfort for the past few months. Patient is known to our practice from outside and before. Patient does have history of ischemic cardiomyopathy and HFrEF. Echocardiogram of November 2024 revealed ejection fraction of 35%. During that admission to the hospital cardiac catheterization was performed and the patient was found to have closed PDA with collaterals. Last echocardiogram (performed in the office on December 28, 2024) revealed preserved left ventricular systolic function. Patient has been kept on aspirin/Plavix as outpatient. Home Meds Reported Medications Montelukast Sodium (MONTELUKAST SODIUM) 10 Mg Tab, 1 TAB PO DAILY, #30 TAB 5 Refills 02/01/25 Amlodipine Besylate (Amlodipine Besylate) 5 Mg Tab, 5 MG PO DAILY for 30 Days, MG 02/01/25 Pantoprazole Sodium Sesquihydr (Protonix) 40 Mg Tab, 20 MG PO DAILY, #30 TAB 02/01/25 Alendronate Sodium (Alendronate Sodium) 70 Mg Tab, 1 TAB PO QWEEKLY, #4 TAB 3 Refills 02/01/25 Fluticasone-Salmeterol (Advair Diskus 250/50) 1 Puff Ih, 1 PUFF INH BID, #3 INHALER 3 Refills 02/01/25 Prasugrel HCl (Prasugrel) 10 Mg Tab, 10 MG PO DAILY, TAB 02/01/25 Atorvastatin Calcium (ATORVASTATIN CALCIUM) 20 Mg Tab, 1 TAB PO DAILY, #30 TAB 5 Refills 02/01/25 Cetirizine HCl (Cetirizine Hydrochloride) 10 Mg Tab, 1 TAB PO DAILY for 21 Days, #21 11/22/24 Amoxicillin & Pot Clavulanate (Amoxicillin/Potassium Cla) 875 Mg Tab, 1 TAB PO BID for 10 Days, #20 11/22/24 Alendronate Sodium (Alendronate Sodium) 35 Mg Tab, 1 TAB PO QWEEKLY for 90 Days, #12 11/22/24 Pantoprazole Sodium Sesquihydr (Pantoprazole Sodium Dr) 40 Mg Tab, 20 MG PO DAILY for 30 Days, #30 11/22/24 Pravastatin Sodium (PRAVACHOL TABLET) 20 Mg Tb, 40 MG PO DAILY for 30 Days, #30 11/22/24 Hydrocodone-Acetaminophen (Hydrocodone Bitartrate/AC 10-325 mg) 1 Tab Tab, 1 TAB PO TID for 30 Days, #90 11/22/24 Amlodipine Besylate (Amlodipine Besylate) 5 Mg Tab, 1 TAB PO DAILY for 30 Days, #30 11/22/24 Hydrochlorothiazide W/Triamter (Triamterene/Hydrochloroth) 1 Cap Cap, 1 CAP PO DAILY for 30 Days, #30 [TRIAMTERENE-HCTZ 75/50 MG] 11/22/24 Oxybutynin Chloride (Oxybutynin Chloride) 5 Mg Tab, 10 MG PO DAILY for 30 Days, #30 [OXYBUTYNIN CL ER 10 MG TABLET] 11/22/24 Duloxetine Hydrochloride (Duloxetine Hydrochloride) 30 Mg Cap, 1 CAP PO DAILY for 30 Days, #30 11/22/24 Montelukast Sodium (MONTELUKAST SODIUM) 10 Mg Tab, 1 TAB PO DAILY for 30 Days, #30 11/22/24 Past Medical History Others Past medical history includes hypertension, hyperlipidemia, coronary artery disease, H/O HFrEF, later: HFimpEF, ischemic cardiomyopathy, asthma, neuropathy, history of mild mitral valve prolapse, CKD, carpal tunnel disease, status post right hip replacement appendectomy/hysterectomy/back surgery/carpal tunnel surgery and history of lumbar stenosis. Patient is allergic to clonidine/lisinopril/losartan/valsartan/metoprolol. She is kept on aspirin/ Plavix as outpatient Patient Family History: Hypertension Smoker: No Hx (Negative) Alocohol: None Drugs: None Lives with: With family Review of Systems Constitutional: No symptom reported Ears, Nose, & Throat: No symptom reported Eyes: No symptom reported Cardiovascular: No symptom reported Gastrointestinal: Abdominal Pain H&P Exam Vital Signs Vital Signs Date Time Temp Pulse Resp B/P (MAP) Pulse Ox O2 Delivery O2 Flow Rate FiO2 02/04/25 09:00 97.5 56 16 153/73 (99) 97 97.5 02/03/25 20:00 Room Air* 0 21 General Appeara: Well developed Head Exam: Normal inspection Eye Exam: bilateral eye PERRL Pulmonary/Respiratory: Normal inspection Cardiovascular/Chest: Normal inspection, Regular rate Peripheral Pulses: 2+ carotid (R), 2+ carotid (L), 2+ femoral (R), 2+ femoral (L) Abdominal Exam: Normal bowel sounds, Soft Neuro/Mental St: Alert, Oriented Appearance: Appropriate appearance Eye contact/ Speech: Cooperative Labs/Xrays Labs Test 02/04/25 05:54 02/03/25 14:49 02/02/25 09:33 02/02/25 04:35 Range/Units White Blood Count 5.2 4.4-10.8 10^3/uL Red Blood Count 4.33 4.0-5.20 10^6/uL Hemoglobin 13.1 12.2-16.2 g/dL Hematocrit 38.1 36.0-46.0 % Mean Corpuscular Volume 88.0 80.0-100.0 fL Mean Corpuscular Hemoglobin 30.2 28.0-32.0 pg Mean Corpuscular Hemoglobin Concent 34.3 32.0-36.0 g/dL Red Cell Distribution Width 13.6 11.8-14.3 % Platelet Count 194 140-450 10^3/uL Mean Platelet Volume 7.5 6.9-10.8 fL Neutrophils (%) (Auto) 58.3 37.0-80.0 % Lymphocytes (%) (Auto) 26.9 10.0-50.0 % Monocytes (%) (Auto) 10.3 0.0-12.0 % Eosinophils (%) (Auto) 4.1 0.0-7.0 % Basophils (%) (Auto) 0.4 0.0-2.0 % Neutrophils # (Auto) 3.0 1.6-8.6 10 ^3/uL Lymphocytes # (Auto) 1.4 0.4-5.4 10 ^3/uL Monocytes # (Auto) 0.5 0-1.3 10 ^3/uL Eosinophils # (Auto) 0.2 0-0.8 10 ^3/uL Basophils # (Auto) 0 0-0.2 10 ^3/uL Nucleated Red Blood Cells 0.0 % Sodium Level 142 136-145 mmol/L Potassium Level 3.2 L 3.5-5.1 mmol/L Chloride Level 105 98-107 mmol/L Carbon Dioxide Level 25 20-31 mmol/L Anion Gap 12 5-15 Blood Urea Nitrogen 7 L 9-23 mg/dL Creatinine 1.14 H 0.550-1.02 mg/dL Glomerular Filtration Rate Calc 48 >90 mL/min BUN/Creatinine Ratio 6.1 L 10.0-20.0 Serum Glucose 97 74-106 mg/dL Calcium Level 9.4 8.7-10.4 mg/dL Magnesium Level 1.7 1.6-2.6 mg/dL Stool for White Cells None seen Prothrombin Time 10.9 9.3-11.8 sec Prothrombin Time INR 1.03 0.9-1.15 Activated Partial Thromboplast Time 26.5 24.5-34.5 SEC Phosphorus Level 3.5 2.4-5.1 mg/dL Vitamin B12 Level 213 211-911 pg/mL Vitamin D 25-Hydroxy 45.9 30.0-100 ng/mL Thyroid Stimulating Hormone (TSH) 2.05 0.55-4.78 uIU/mL Test 02/01/25 12:16 02/01/25 05:22 01/31/25 14:44 Range/Units Urine Color Colorless Yellow Urine Clarity Clear Clear Urine pH 7.0 5.0-9.0 Urine Specific Red Bud 1.008 1.001-1.035 Urine Protein Negative Negative Urine Ketones Negative Negative Urine Blood Negative Negative /uL Urine Nitrite Negative Negative Urine Bilirubin Negative Negative Urine Urobilinogen Normal Negative mg/dL Urine Leukocyte Esterase Negative Negative /uL Urine RBC <1 0 - 4 /hpf Urine Microscopic WBC < 1 0-5 /HPF Urine Squamous Epithelial Cells None seen <5 /hpf Urine Bacteria None seen None Seen /hpf Urine Glucose Normal Normal mg/dL Total Bilirubin 0.6 0.2-1.0 mg/dL Aspartate Amino Transferase (AST) 19 13-40 U/L Alanine Aminotransferase (ALT) 14 7-40 U/L Alkaline Phosphatase 82 46-116 U/L Total Protein 6.1 5.7-8.2 g/dL Albumin 4.0 3.2-4.8 g/dL Hemoglobin A1c 5.4 <5.7 % A1C Lipase 39 12-53 U/L Microbiology Date/Time Source Procedure Growth Status 02/01/25 12:16 Voided Urine Urine Culture - Final Complete Assessment/Plan Plan Patient is a 84-year-old female who originally presented to the hospital on January 31, 2025 for abdominal pain which was ongoing for 2-3 weeks before presentation. She has been cared on telemetry for. Originally assessment was possible cholecystitis. She was found to have gallstones. Later on, HIDA scan was negative and cholecystitis was not considered. Patient may have had some diverticulitis which has improved since admission. Is also found to have kidney stone which could have contributed to the clinical picture. Cardiology is involved for cardiac aspects of care on February 04, 2025. There has been no report of chest pain. Patient herself denies any chest discomfort for the past few months. Patient is known to our practice from outside and before. Patient does have history of ischemic cardiomyopathy and HFrEF. Echocardiogram of November 2024 revealed ejection fraction of 35%. During that admission to the hospital cardiac catheterization was performed and the patient was found to have closed PDA with collaterals. Last echocardiogram (performed in the office on December 28, 2024) revealed preserved left ventricular systolic function. Patient has been kept on aspirin/Plavix as outpatient. Not in acute distress. No JVD. Mucosa is pink and wet. No carotid bruit. Scattered rhonchi in the lungs is heard. Not using accessory muscles of breathing. Cardiac: Regular, no thrill/gallop. Abdomen is soft. Bowel sound is positive. No tenderness. Extremities do not reveal edema. Dorsalis pedis 2+ bilateral Past medical history includes hypertension, hyperlipidemia, coronary artery disease, H/O HFrEF, later: HFimpEF, ischemic cardiomyopathy, asthma, neuropathy, history of mild mitral valve prolapse, CKD, carpal tunnel disease, status post right hip replacement appendectomy/hysterectomy/back surgery/carpal tunnel surgery and history of lumbar stenosis. Patient is allergic to clonidi ne/lisinopril/losartan/valsartan/metoprolol. She is kept on aspirin/Plavix as outpatient Nuclear stress test (performed in the office) in February 2024 revealed scar. Left heart catheterization of November 22, 2024 revealed closed PDA with positive collaterals from right. Echocardiogram (performed in the office) of December 2023 had revealed preserved ejection fraction with questionable mild mitral valve prolapse and [id number] mitral regurgitation Echocardiogram of November 20, 2024 revealed ejection fraction of 35%, anterior/anterior septal/anterior apical hypokinesia, ischemic cardiomyopathy, mild MR, trace TR and right ventricular systolic pressure of 31 mm Echocardiogram of December 28, 2024 (performed in the office) revealed preserved LVEF Creatinine: 1.46 - 1.36 - 1.13 - 1.13 - 1.14 Potassium: 4.2 - 3.7 - 3.2 - 2.7 - 3.2 TSH: 2.05 Chest x-ray revealed: IMPRESSION: No acute cardiopulmonary disease. Abdomen/pelvic CT scan revealed: There is limited interpretation of the abdomen and pelvis without administration of intravenous contrast. Lung bases demonstrate atelectasis. Adrenal glands, spleen, pancreas and liver unremarkable in shape. Cholelithiasis. Kidneys demonstrate no hydronephrosis. Left renal indeterminate exophytic lesion measuring 1.7 cm. Nonobstructing left renal calculus measuring 6 mm. Right kidney demonstrates no hydronephrosis/nephrolithiasis. Stomach is partially distended. Small bowel loops normal in caliber. Duodenal diverticulum. Colonic diverticular disease. Moderate volume stool throughout the colon. No secondary signs for appendicitis. Abdominal aortic atherosclerotic disease. Bladder is contracted. No free pelvic fluid. No inguinal lymphadenopathy. Right hip arthroplasty. Moderate degenerate changes left hip. [id number] bilateral sacroiliac degenerative joint disease. Moderate to advanced thoracolumbar degenerative disc disease. Posterior decompression at L3. T10 vertebral body hemangioma measuring 2 cm. IMPRESSION: Limited evaluation without contrast. Colonic diverticular disease. Moderate volume stool in the colon. Cholelithiasis. Nonobstructing left renal calculus measuring 6 mm. Left renal indeterminate lesion measuring 1.7 cm. Recommend MRI abdomen with and without contrast to evaluate and exclude any type of solid mass/neoplasm. Atherosclerotic disease. Other findings as described. Renal ultrasound revealed: IMPRESSION: Small right kidney, mild increased echogenicity of the bilateral kidneys, most compatible with medical renal disease. 4 mm left renal nonobstructing calculus. Abdominal and MRI revealed: IMPRESSION: Cholelithiasis with mild gallbladder wall thickening and pericholecystic edema. Correlate for acute cholecystitis. Probable left renal cyst (limited examination secondary to lack of intravenous contrast administration). HIDA scan revealed: Impression: Unremarkable hepatobiliary study without evidence of acute cholecystitis. EKG on arrival reveals sinus rhythm with nonspecific ST-T changes Tele reveals sinus rhythm Patient is a 84-year-old female who originally presented with abdominal pain. Has been kept on telemetry and was managed for possible diverticulitis. Kidney stones also could have contributed to the clinical picture. Abdominal pain has improved. There has been no chest pains. Patient does have baseline history of coronary artery disease. Has been kept on aspirin/Plavix as outpatient. Does h ave history of HFrEF. Last echocardiogram revealed improved ejection fraction and diagnosis has changed to HFimpEF. Presentation was not considered ACS. Intractable Abdominal pain Gallstone Kidney stone Diverticulitis? Hypertension Hyperlipidemia CKD Coronary artery disease Ischemic cardiomyopathy HFimpEF Cardiac suggestion for management: Manage on telemetry Follow-up electrolytes and kidney function tests and correct abnormalities Dual antiplatelet therapy (On Aspirin/Plavix) for now Lifestyle and risk factor modifications Evaluation and management of abdominal pain as per primary team. Cardiac-maldonado is stable and can be followed as outpatient. Continuation of GDMT for history of systolic heart failure (presently HFimpEF) is suggested. Patient is allergic to Valsartan and Entrersto cannot be started. She herself mentions allergy to Lisinopril also. Further evaluation and management depends on the above and clinical course A total of 75 minutes was spent reviewing the patient record, examining the patient, making a diagnostic and therapeutic plan, discussing this plan with medical personnel, following up on diagnostic studies and following the patient for clinical stability excluding any and all procedures. At least 50% of this time was spent in direct, [id number] contact. Thank you for allowing me to participate in this patient's care. Further recommendations will depend on patient's clinical course. Please do not hesitate to contact me if you have any questions or concerns. This medical document was created using electronic medical record system with [employer] computerized dictation system. Although this document has been carefully reviewed, there may still be some phonetic and typographical errors. These areas are purely typographical due to the imperfection of the software programs, and do not reflect any compromise in the patient's medical care. Plan discussed with: Patient, Other (nurse) GAMA FERRO MD Feb 04, 2025 10:26
[2025-02-04] MEDS: MAGNESIUM SULFATE 1GM/100ML 100 ML IV SCH (12:32)
--- NOTE | 2025-02-04 13:54 | DVHPNRES ---
Progress Note Date Seen: Feb 04, 2025 Resident Creating Document: ROYCE BROOKE Medical Necessity Reason Pt with a Central, PICC or Fol: No Subjective Review of Systems Patient is a 84-year-old female with past medical history of hypertension, T2DM, CAD with [employer] recent NSTEMI on 11/2024, mitral valve prolapse, HFrEF (LVEF 35%) not on GDMT due to allergies, Carpal tunnel syndrome and HLD presented to [facility] ED with complaint of acute intractable left lower quadrant abdominal pain. Two weeks ago, pain began as sharp, burning, constant in the left lower quadrant, radiating to the lower abdomen, and associated with constipation. Yesterday, the pain acutely worsened to 8/10 in intensity, prompting her to come to the ED. Pain remains sharp and non-radiating. She endorses chills but denies fever, vomiting, diarrhea, hematochezia, melena, dysuria, hematuria, flank pain, vaginal discharge, or bleeding. She had a normal bowel movement today. Reports poor appetite due to pain. No recent travel or sick contacts. On 02/02/25, Low magnesium and potassium levels, which were replaced. A surgical consult was obtained for gallstones/questionable cholecystitis. A HIDA scan was performed to evaluate for cholecystitis, and the results ruled out acute cholecystitis. Care remains ongoing. On 02/03/25, Potassium level was 2.7 and was replaced. Patient complained of diarrhea since yesterday, two episodes. The patient is being evaluated for possible Clostridioides difficile infection. On 02/04/25, Magnesium and potassium were replaced. The patient is taking Jardiance and would need to discontinue it for a few days if an elective operation is planned. At present, conservative management is recommended. If she experiences recurrent episodes of right upper quadrant pain, she should return to the clinic to plan for an elective cholecystectomy. There is no indication for emergency surgical intervention. Past surgical history: Carpal tunnel repair, right hip replacement, hysterectomy, appendectomy, herniated disc surgery, cataract surgery Home medications: Clopidogrel, aspirin, amlodipine, atorvastatin Social & Personal history: Denies current tobacco, alcohol and other drug abuse. Allergy: Clonidine, lisinopril, losartan, metoprolol, ondansetron, valsartan Patient seen and examined at bedside. Patient is alert and oriented to time, place person and responding to all questions. Eyes: No Pain, No Vision change, No Conjunctivae inflammation, No Eyelid inflammation, No Other, No Redness ENT: No Ear pain, No Ear discharge, No Nose pain, No Nose discharge, No Nose congestion, No Mouth pain, No Mouth swelling, No Throat pain, No Throat swelling, No Other Cardiovascular: No Chest Pain, No Palpitations, No Orthopnea, No Paroxysmal No Dyspnea, No Edema, No Lt Headedness, No Other Respiratory: No Cough, No Dry, No Shortness of breath, No SOB with exertion, No Wheezing, No Hemoptysis, No Pleuritic Pain, No Sputum, No Other Gastrointestinal: Nausea, No Vomiting, Abdominal Pain, No Diarrhea, Constipation, No Melena, No Hematochezia, No Other Genitourinary: No Dysuria, No Frequency, No Incontinence, No Hematuria, No Retention, No Other Musculoskeletal: No other, No neck pain, No shoulder pain, No arm pain, No back pain, No hand pain, No leg pain, No foot pain Skin: No Rash, No Lesions, No Jaundice, No Bruising, No Other Objective vital signs Vital Sign Date Time Temp Pulse Resp B/P (MAP) Pulse Ox O2 Delivery O2 Flow Rate FiO2 02/04/25 09:00 97.5 56 16 153/73 (99) 97 97.5 02/04/25 08:00 Room Air* 0 21 Total Intake and Output 02/03/25 02/03/25 02/04/25 15:00 23:00 07:00 Intake Total 150 ml 610 ml 710 ml Output Total 1000 ml 650 ml Balance 150 ml -390 ml 60 ml medications Current Medications Medications Dose Ordered Sig/Aparna Route Start Time Stop Time Status Last Admin Dose Admin Acetaminophen 650 mg Q6HP PRN PO 01/31/25 17:15 02/03/25 08:31 650 MG Ceftriaxone Sodium 50 ml @ 100 mls/hr DAILY@09 IV 01/31/25 18:00 02/04/25 08:41 100 MLS/HR Metronidazole 100 ml @ 100 mls/hr Q8HR IV 01/31/25 22:00 02/04/25 05:31 100 MLS/HR Amlodipine Besylate 5 mg DAILY PO 02/01/25 10:00 02/04/25 08:42 5 MG Aspirin 81 mg DAILY PO 02/01/25 10:00 02/04/25 08:42 81 MG Clopidogrel Bisulfate 75 mg DAILY PO 02/01/25 10:00 02/04/25 08:41 75 MG Atorvastatin Calcium 10 mg HS PO 01/31/25 22:00 02/02/25 21:43 10 MG Tamsulosin HCl 0.4 mg QPM PO 02/01/25 18:00 02/03/25 17:31 0.4 MG Acetaminophen/ Hydrocodone Bitart 1 tab Q6HP PRN PO 02/01/25 17:00 02/02/25 21:44 1 TAB Pantoprazole Sodium 40 mg DAILY IV 02/02/25 10:00 02/04/25 08:41 40 MG Empaglifozin 10 mg DAILY PO 02/02/25 10:00 02/03/25 08:31 10 MG Magnesium Sulfate/ Dextrose 100 ml @ 100 mls/hr Q1HR IV 02/04/25 12:00 02/04/25 13:59 02/04/25 13:40 100 MLS/HR Examination General Appearance: Cooperative. Well developed. Well nourished. NAD Head Exam: Normal inspection Neck Exam: Normal inspection. Non-tender. Normal alignment Pulmonary/Respiratory: Chest non-tender. Clear bilateral breath sounds, no crackles, no wheezing. Cardiovascular/Chest: Regular rate and rhythm. No murmurs. No JVD. Peripheral Pulses: 2+ Radial (R). 2+ Radial (L). 2+ Pedal (R). 2+ Pedal (L) Abdominal Exam: Soft, LLQ mild tenderness to palpation, no guarding, no rebound, non-distended, positive bowel sounds. No CVA tenderness bilaterally, negative Dennis's sign Ankle Exam: Negative ankle edema Lower extremities: Negative lower extremity edema Neuro/Mental Status: A&O x4. Coherent. Thoughts/Psych: Normal thought pattern. Appropriate mood and affect. Good judgement and insight Skin Exam: Normal inspection. Normal color. Warm. Dry laboratory and microbiology Laboratory Tests 02/04/25 05:54 Test 02/04/25 05:54 Range/Units Serum Glucose 97 74-106 mg/dL Microbiology Date/Time Source Procedure Growth Status 02/01/25 12:16 Voided Urine Urine Culture - Final Complete Labs and/or images reviewed: Labs reviewed by me, Image(s) reviewed by me (RN) Problem List/Assessment/Plan Problem List/Assessment/Plan #Asymptomatic Cholelithiasis #Colonic diverticular disease #Diverticulosis without todd diverticulitis #Constipation #Acute cholecystitis, ruled out HIDA scan: No evidence of acute cholecystitis. The hepatobiliary study was unremarkable, showing prompt visualization of the gallbladder and normal excretion into the small bowel, which rules out acute cholecystitis. Abdominal MRI: Cholelithiasis with mild gallbladder wall thickening and pericholecystic edema. Chest X-ray: No acute cardiopulmonary disease. Abdomen/Pelvis CT: Colonic diverticular disease. Moderate volume stool in the colon. Cholelithiasis. Atherosclerotic disease. pain management with Tylenol and Valentine Ceftriaxone 1 GM IV daily Metronidazole IV q8h IV NS 60 MLS/HR Sodium chloride 0.9% IV 60 MLS/HR Urine Bacterial Culture No growth Metoclopramide 5 MG IV once Miralax 17 GM PO once Surgical consult: The patient is taking Jardiance and would need to discontinue it for a few days if an elective operation is planned. At present, conservative management is recommended. If she experiences recurrent episodes of right upper quadrant pain, she should return to the clinic to plan for an elective cholecystectomy. There is no indication for emergency surgical intervention. Cardiology consult: Follow up as outpatient, give tolerated GDM T (per patient she has allergies to losartan/Entresto/valsartan/lisinopril). #possible Clostridioides difficile infection Stool WBC negative Stool bacterial culture negative Stool Cdiff negative #Probable left renal cyst #Nonobstructing left renal calculus Abdominal MRI: Probable left renal cyst Renal US: Small right kidney, mild increased echogenicity of the bilateral kidneys, most compatible with medical renal disease. 4 mm left renal nonobstructing calculus. Abdomen/Pelvis CT: Nonobstructing left renal calculus measuring 6 mm. Left renal indeterminate lesion measuring 1.7 cm. Atherosclerotic disease. Flomax 0.4 MG PO qpm #Coronary artery disease - status post angiogram ([employer] of PDA) on dual antiplatelet therapy #Mitral valve prolapse Aspirin 81 MG PO daily Clopidogrel 75 MG PO daily #Hypertension Amlodipine 5 MG PO daily #GRAY due to VMN Cr 1.13 with BUN 10 Continue IV hydration Monitor renal function Avoid nephrotoxic drugs #Mixed dyslipidemia Atorvastatin 10 MG PO daily #Type 2 diabetes mellitus, controlled A1c 5.4% monitor #Hypomagnesemia #Hypokalemia Magnesium IV q1hr Potassium 2.7 Potasium 60 MEQ PO once Postassium Chl 20 IV Once Diet: Cardiac Goals of care: Full code Plan discussed with patient Plan discussed with Dr. Maddox Plan discussed with: Patient, Other My Orders My Orders Orders - ROYCE BROOKE Procedure Category Date Status Time Cardiac DIET 02/04/25 Transmitted Diet-2gna,Lofat,Lochol Lunch Visit Coding STANDARD RES Billing Provider: TSERING MADDOX MD Date of Service if different f: Feb 04, 2025 Common Visit Codes: 43684-[id number] INP/OBS CARE(HIGH) ROYCE BROOKE RESIDENT Feb 04, 2025 13:54 EVA ROBLES RESIDENT Feb 04, 2025 19:30
[2025-02-05 01:00] VITALS: BP 134/72; PULSE 66; RESP 18; TEMP 98; O2SAT 98
[2025-02-05 05:00] VITALS: BP 132/71; PULSE 58; RESP 17; TEMP 96.8; O2SAT 95
--- NOTE | 2025-02-05 06:15 | DVHPN2 ---
Progress Note - Dictate Date Seen: Feb 05, 2025 Medical Necessity Reason Pt with a Central, PICC or Fol: No vital signs Vital Sign Date Time Temp Pulse Resp B/P (MAP) Pulse Ox O2 Delivery O2 Flow Rate FiO2 02/05/25 05:00 96.8 58 17 132/71 (91) 95 96.8 02/04/25 20:00 Room Air* 0 21 Total Intake and Output 02/04/25 02/04/25 02/05/25 15:00 23:00 07:00 Intake Total 50 ml 550 ml 240 ml Output Total 400 ml 600 ml Balance 50 ml 150 ml -360 ml medications Current Medications Medications Dose Ordered Sig/Aparna Route Start Time Stop Time Status Last Admin Dose Admin Acetaminophen 650 mg Q6HP PRN PO 01/31/25 17:15 02/03/25 08:31 650 MG Ceftriaxone Sodium 50 ml @ 100 mls/hr DAILY@09 IV 01/31/25 18:00 02/04/25 08:41 100 MLS/HR Metronidazole 100 ml @ 100 mls/hr Q8HR IV 01/31/25 22:00 02/05/25 05:13 100 MLS/HR Amlodipine Besylate 5 mg DAILY PO 02/01/25 10:00 02/04/25 08:42 5 MG Aspirin 81 mg DAILY PO 02/01/25 10:00 02/04/25 08:42 81 MG Clopidogrel Bisulfate 75 mg DAILY PO 02/01/25 10:00 02/04/25 08:41 75 MG Atorvastatin Calcium 10 mg HS PO 01/31/25 22:00 02/04/25 21:16 10 MG Tamsulosin HCl 0.4 mg QPM PO 02/01/25 18:00 02/04/25 18:14 0.4 MG Acetaminophen/ Hydrocodone Bitart 1 tab Q6HP PRN PO 02/01/25 17:00 02/02/25 21:44 1 TAB Pantoprazole Sodium 40 mg DAILY IV 02/02/25 10:00 02/04/25 08:41 40 MG Empaglifozin 10 mg DAILY PO 02/02/25 10:00 02/03/25 08:31 10 MG laboratory and microbiology Laboratory Tests 02/04/25 05:54 Test 02/04/25 05:54 Range/Units Serum Glucose 97 74-106 mg/dL Assessment/Plan Patient is a 84-year-old female who originally presented to the hospital on January 31, 2025 for abdominal pain which was ongoing for 2-3 weeks before presentation. She has been cared on telemetry for. Originally assessment was possible cholecystitis. She was found to have gallstones. Later on, HIDA scan was negative and cholecystitis was not considered. Patient may have had some diverticulitis which has improved since admission. Is also found to have kidney stone which could have contributed to the clinical picture. Cardiology is involved for cardiac aspects of care on February 04, 2025. There has been no report of chest pain. Patient herself denies any chest discomfort for the past few months. Patient is known to our practice from outside and before. Patient does have history of ischemic cardiomyopathy and HFrEF. Echocardiogram of November 2024 revealed ejection fraction of 35%. During that admission to the hospital cardiac catheterization was performed and the patient was found to have closed PDA with collaterals. Last echocardiogram (performed in the office on December 28, 2024) revealed preserved left ventricular systolic function. Patient has been kept on aspirin/Plavix as outpatient. Not in acute distress. No JVD. Mucosa is pink and wet. No carotid bruit. Scattered rhonchi in the lungs is heard. Not using accessory muscles of breathing. Cardiac: Regular, no thrill/gallop. Abdomen is soft. Bowel sound is positive. No tenderness. Extremities do not reveal edema. Dorsalis pedis 2+ bilateral Past medical history includes hypertension, hyperlipidemia, coronary artery disease, H/O HFrEF, later: HFimpEF, ischemic cardiomyopathy, asthma, neuropathy, history of mild mitral valve prolapse, CKD, carpal tunnel disease, status post right hip replacement appendectomy/hysterectomy/back surgery/carpal tunnel surgery and history of lumbar stenosis. Patient is allergic to clonidine/lisinopril/losartan/valsartan/metoprolol. She is kept on aspirin/Plavix as outpatient Nuclear stress test (performed in the office) in February 2024 revealed scar. Left heart catheterization of November 22, 2024 revealed closed PDA with positive collaterals from right. Echocardiogram (performed in the office) of December 2023 had revealed preserved ejection fraction with questionable mild mitral valve prolapse and [id number] mitral regurgitation Echocardiogram of November 20, 2024 revealed ejection fraction of 35%, anterior/anterior septal/anterior apical hypokinesia, ischemic cardiomyopathy, mild MR, trace TR and right ventricular systolic pressure of 31 mm Echocardiogram of December 28, 2024 (performed in the office) revealed preserved LVEF Creatinine: 1.46 - 1.36 - 1.13 - 1.13 - 1.14 - 1.27 Potassium: 4.2 - 3.7 - 3.2 - 2.7 - 3.2 - 3.0 TSH: 2.05 Chest x-ray revealed: IMPRESSION: No acute cardiopulmonary disease. Abdomen/pelvic CT scan revealed: There is limited interpretation of the abdomen and pelvis without administration of intravenous contrast. Lung bases demonstrate atelectasis. Adrenal glands, spleen, pancreas and liver unremarkable in shape. Cholelithiasis. Kidneys demonstrate no hydronephrosis. Left renal indeterminate exophytic lesion measuring 1.7 cm. Nonobstructing left renal calculus measuring 6 mm. Right kidney demonstrates no hydronephrosis/nephrolithiasis. Stomach is partially distended. Small bowel loops normal in caliber. Duodenal diverticulum. Colonic diverticular disease. Moderate volume stool throughout the colon. No secondary signs for appendicitis. Abdominal aortic atherosclerotic disease. Bladder is contracted. No free pelvic fluid. No inguinal lymphadenopathy. Right hip arthroplasty. Moderate degenerate changes left hip. [id number] bilateral sacroiliac degenerative joint disease. Moderate to advanced thoracolumbar degenerative disc disease. Posterior decompression at L3. T10 vertebral body hemangioma measuring 2 cm. IMPRESSION: Limited evaluation without contrast. Colonic diverticular disease. Moderate volume stool in the colon. Cholelithiasis. Nonobstructing left renal calculus measuring 6 mm. Left renal indeterminate lesion measuring 1.7 cm. Recommend MRI abdomen with and without contrast to evaluate and exclude any type of solid mass/neoplasm. Atherosclerotic disease. Other findings as described. Renal ultrasound revealed: IMPRESSION: Small right kidney, mild increased echogenicity of the bilateral kidneys, most compatible with medical renal disease. 4 mm left renal nonobstructing calculus. Abdominal and MRI revealed: IMPRESSION: Cholelithiasis with mild gallbladder wall thickening and pericholecystic edema. Correlate for acute cholecystitis. Probable left renal cyst (limited examination secondary to lack of intravenous contrast administration). HIDA scan revealed: Impression: Unremarkable hepatobiliary study without evidence of acute cholecystitis. EKG on arrival reveals sinus rhythm with nonspecific ST-T changes Tele reveals sinus rhythm Patient is a 84-year-old female who originally presented with abdominal pain. Has been kept on telemetry and was managed for possible diverticulitis. Kidney stones also could have contributed to the clinical picture. Abdominal pain has improved. There has been no chest pains. Patient does have baseline history of coronary artery disease. Has been kept on aspirin/Plavix as outpatient. Does have history of HFrEF. Last echocardiogram revealed improved ejection fraction and diagnosis has changed to HFimpEF. Presentation was not considered ACS. Intractable Abdominal pain Gallstone Kidney stone Diverticulitis? Hypertension Hyperlipidemia CKD Coronary artery disease Ischemic cardiomyopathy HFimpEF Cardiac suggestion for management: Manage on telemetry Follow-up electrolytes and kidney function tests and correct abnormalities Dual antiplatelet therapy (On Aspirin/Plavix) for now Lifestyle and risk factor modifications Evaluation and management of abdominal pain as per primary team. Cardiac-maldonado is stable and can be followed as outpatient. Continuation of GDMT for history of systolic heart failure (presently HFimpEF) is suggested. Patient is allergic to Valsartan and Entrersto cannot be started. She herself mentions allergy to Lisinopril also. Further evaluation and management depends on the above and clinical course A total of 75 minutes was spent reviewing the patient record, examining the patient, making a diagnostic and therapeutic plan, discussing this plan with medical personnel, following up on diagnostic studies and following the patient for clinical stability excluding any and all procedures. At least 50% of this time was spent in direct, [id number] contact. Thank you for allowing me to participate in this patient's care. Further recommendations will depend on patient's clinical course. Please do not hesitate to contact me if you have any questions or concerns. This medical document was created using electronic medical record system with [employer] computerized dictation system. Although this document has been carefully reviewed, there may still be some phonetic and typographical errors. These areas are purely typographical due to the imperfection of the software programs, and do not reflect any compromise in the patient's medical care. Plan discussed with: Patient, Other (nurse) Plan discussed with: Patient (patient and primary rn ) NIR DELUCA Feb 05, 2025 06:15
[2025-02-05 06:36] LABS: Hematocrit 36.4 % (36.0-46.0); Hemoglobin 12.7 g/dL (12.2-16.2); Mean Corpuscular Hemoglobin 30.6 pg (28.0-32.0); Mean Corpuscular Volume 87.7 fL (80.0-100.0); Nucleated Red Blood Cells % 0.1 %
[2025-02-05 06:45] LABS: Anion Gap 10 (5-15); Carbon Dioxide 28 mmol/L (20-31); Chloride 104 mmol/L (98-107); Sodium 142 mmol/L (136-145)
[2025-02-05 06:46] LABS: Calcium 9.0 mg/dL (8.7-10.4)
[2025-02-05 06:51] LABS: BUN/Creatinine Ratio 13.4 (10.0-20.0); Blood Urea Nitrogen 17 mg/dL (9-23); Glucose 102 mg/dL (74-106); Magnesium 2.0 mg/dL (1.6-2.6)
[2025-02-05 06:56] LABS: Potassium 3.0 mmol/L (3.5-5.1)
[2025-02-05] MEDS ORDERED: POTASSIUM CHL 20MEQ/100ML 100 ML IV SCH (08:15)
[2025-02-05 09:00] VITALS: BP 149/75; PULSE 62; RESP 16; TEMP 98.2; O2SAT 96
[2025-02-05] MEDS: POTASSIUM CHL 20 Meq TABLET PO ONE (09:05)
[2025-02-05] MEDS: POTASSIUM EFFERVESENT TAB 25 MEQ PO ONE (09:58)
[2025-02-05 13:00] VITALS: BP 151/69; PULSE 63; RESP 17; TEMP 98; O2SAT 96
--- NOTE | 2025-02-05 13:10 | DVHDSRES ---
Discharge Summary Date of Admission Resident Creating Document: ROYCE BROOKE RESIDENT Jan 31, 2025 at 17:15 Date of Discharge: Feb 05, 2025 Admitting Diagnosis Suspected acute diverticulitis/colitis Labs/Diagnostic Data: Laboratory Results Test 02/05/25 11:45 02/05/25 06:03 02/03/25 14:49 02/02/25 09:33 Potassium Level 4.2 mmol/L (3.5-5.1) White Blood Count 5.3 10^3/uL (4.4-10.8) Red Blood Count 4.15 10^6/uL (4.0-5.20) Hemoglobin 12.7 g/dL (12.2-16.2) Hematocrit 36.4 % (36.0-46.0) Mean Corpuscular Volume 87.7 fL (80.0-100.0) Mean Corpuscular Hemoglobin 30.6 pg (28.0-32.0) Mean Corpuscular Hemoglobin Concent 34.9 g/dL (32.0-36.0) Red Cell Distribution Width 13.5 % (11.8-14.3) Platelet Count 191 10^3/uL (140-450) Mean Platelet Volume 7.5 fL (6.9-10.8) Neutrophils (%) (Auto) 59.5 % (37.0-80.0) Lymphocytes (%) (Auto) 28.5 % (10.0-50.0) Monocytes (%) (Auto) 9.2 % (0.0-12.0) Eosinophils (%) (Auto) 2.5 % (0.0-7.0) Basophils (%) (Auto) 0.3 % (0.0-2.0) Neutrophils # (Auto) 3.2 10 ^3/uL (1.6-8.6) Lymphocytes # (Auto) 1.5 10 ^3/uL (0.4-5.4) Monocytes # (Auto) 0.5 10 ^3/uL (0-1.3) Eosinophils # (Auto) 0.1 10 ^3/uL (0-0.8) Basophils # (Auto) 0 10 ^3/uL (0-0.2) Nucleated Red Blood Cells 0.1 % Sodium Level 142 mmol/L (136-145) Chloride Level 104 mmol/L (98-107) Carbon Dioxide Level 28 mmol/L (20-31) Anion Gap 10 (5-15) Blood Urea Nitrogen 17 mg/dL (9-23) Creatinine 1.27 mg/dL (0.550-1.02) Glomerular Filtration Rate Calc 42 mL/min (>90) BUN/Creatinine Ratio 13.4 (10.0-20.0) Serum Glucose 102 mg/dL (74-106) Calcium Level 9.0 mg/dL (8.7-10.4) Magnesium Level 2.0 mg/dL (1.6-2.6) Stool for White Cells None seen Prothrombin Time 10.9 sec (9.3-11.8) Prothrombin Time INR 1.03 (0.9-1.15) Activated Partial Thromboplast Time 26.5 SEC (24.5-34.5) Test 02/02/25 04:35 02/01/25 12:16 02/01/25 05:22 01/31/25 14:44 Phosphorus Level 3.5 mg/dL (2.4-5.1) Vitamin B12 Level 213 pg/mL (211-911) Vitamin D 25-Hydroxy 45.9 ng/mL (30.0-100) Thyroid Stimulating Hormone (TSH) 2.05 uIU/mL (0.55-4.78) Urine Color Colorless (Yellow) Urine Clarity Clear (Clear) Urine pH 7.0 (5.0-9.0) Urine Specific [place] 1.008 (1.001-1.035) Urine Protein Negative (Negative) Urine Ketones Negative (Negative) Urine Blood Negative /uL (Negative) Urine Nitrite Negative (Negative) Urine Bilirubin Negative (Negative) Urine Urobilinogen Normal mg/dL (Negative) Urine Leukocyte Esterase Negative /uL (Negative) Urine RBC <1 /hpf (0 - 4) Urine Microscopic WBC < 1 /HPF (0-5) Urine Squamous Epithelial Cells None seen /hpf (<5) Urine Bacteria None seen /hpf (None Seen) Urine Glucose Normal mg/dL (Normal) Total Bilirubin 0.6 mg/dL (0.2-1.0) Aspartate Amino Transferase (AST) 19 U/L (13-40) Alanine Aminotransferase (ALT) 14 U/L (7-40) Alkaline Phosphatase 82 U/L (46-116) Total Protein 6.1 g/dL (5.7-8.2) Albumin 4.0 g/dL (3.2-4.8) Hemoglobin A1c 5.4 % A1C (<5.7) Lipase 39 U/L (12-53) Other Laboratory Tests 02/05/25 11:45 02/05/25 06:03 Brief Hx & Hospital Course: Patient is a 84-year-old female with past medical history of hypertension, T2DM, CAD with [employer] recent NSTEMI on 11/2024, mitral valve prolapse, HFrEF (LVEF 35%) not on GDMT due to allergies, Carpal tunnel syndrome and HLD presented to [facility] ED with complaint of acute intractable left lower quadrant abdominal pain. Two weeks ago, pain began as sharp, burning, constant in the left lower quadrant, radiating to the lower abdomen, and associated with constipation. Yesterday, the pain acutely worsened to 8/10 in intensity, prompting her to come to the ED. Pain remains sharp and non-radiating. She endorses chills but denies fever, vomiting, diarrhea, hematochezia, melena, dysuria, hematuria, flank pain, vaginal discharge, or bleeding. She had a normal bowel movement today. Reports poor appetite due to pain. No recent travel or sick contacts. A surgical consult was obtained for gallstones/questionable cholecystitis. MRI of the abdomen- Cholelithiasis with mild gallbladder wall thickening and pericholecystic edema. Correlate for acute cholecystitis.Probable left renal cyst. A HIDA scan was performed to evaluate for cholecystitis, and the results ruled out acute cholecystitis. . The patient is taking Jardiance and would need to discontinue it for a few days if an elective operation is planned. At present, conservative management is recommended by surgery Department. If she experiences recurrent episodes of right upper quadrant pain, she should return to the clinic to plan for an elective cholecystectomy. There is no indication for emergency surgical intervention. Patient's hypomagnesemia and hypokalemia was corrected. Patient's symptoms improved. Patient is being discharged home with the Keflex and metronidazole. Patient was hemodynamically stable on discharge. All questions answered. General examination-awake, alert, oriented HEENT- PEERLA, no acute nasal discharge Cardiovascular- S1-S2 audible, rate and rhythm regular, no murmur Respiratory- CTAB, no wheeze or rhonchi Gastrointestinal-nontender, bowel sound+. Nondistended Musculoskeletal-no acute joint swelling or tenderness or redness Lower extremity- no leg edema Neurological- cranial nerves intact, no acute dysarthria or dysphagia Psychiatry- denies depression or SI or HI Skin- no acute rash or purpura Plan of care discussed with Dr. Alarcon Consults/Reason for consult Patient: CHRISTY ASIF Acct: [id number] : 1940 Loc: [facility] Age/Sex: 84/F [id number] Progress Note Date Seen: Feb 04, 2025 Medical Necessity Reason Pt with a Central, PICC or Fol: No Objective vital signs Vital Sign Date Time Temp Pulse Resp B/P (MAP) Pulse Ox O2 Delivery O2 Flow Rate FiO2 02/04/25 09:00 97.5 56 16 153/73 (99) 97 97.5 02/03/25 20:00 Room Air* 0 21 Total Intake and Output 02/03/25 02/03/25 02/04/25 15:00 23:00 07:00 Intake Total 150 ml 610 ml 710 ml Output Total 1000 ml 650 ml Balance 150 ml -390 ml 60 ml medications Current Medications Medications Dose Ordered Sig/Aparna Route Start Time Stop Time Status Last Admin Dose Admin Acetaminophen 650 mg Q6HP PRN PO 01/31/25 17:15 02/03/25 08:31 650 MG Ceftriaxone Sodium 50 ml @ 100 mls/hr DAILY@09 IV 01/31/25 18:00 02/04/25 08:41 100 MLS/HR Metronidazole 100 ml @ 100 mls/hr Q8HR IV 01/31/25 22:00 02/04/25 05:31 100 MLS/HR Amlodipine Besylate 5 mg DAILY PO 02/01/25 10:00 02/04/25 08:42 5 MG Aspirin 81 mg DAILY PO 02/01/25 10:00 02/04/25 08:42 81 MG Clopidogrel Bisulfate 75 mg DAILY PO 02/01/25 10:00 02/04/25 08:41 75 MG Atorvastatin Calcium 10 mg HS PO 01/31/25 22:00 02/02/25 21:43 10 MG Tamsulosin HCl 0.4 mg QPM PO 02/01/25 18:00 02/03/25 17:31 0.4 MG Acetaminophen/ Hydrocodone Bitart 1 tab Q6HP PRN PO 02/01/25 17:00 02/02/25 21:44 1 TAB Pantoprazole Sodium 40 mg DAILY IV 02/02/25 10:00 02/04/25 08:41 40 MG Empaglifozin 10 mg DAILY PO 02/02/25 10:00 02/03/25 08:31 10 MG laboratory and microbiology Laboratory Tests 02/04/25 05:54 Test 02/04/25 05:54 Range/Units Serum Glucose 97 74-106 mg/dL Problem List/Assessment/Plan Problem List/Assessment/Plan 02/04/[age] year old female frail appearing, multiple co morbidities,initially diagnosed with cholecystitis, no pain,no nausea, hida scan normal, no evidfence of cholecystitis now, she is taking jardiance and would need to off for a few days for an elective operation, recommend treating conservatively and if repeat episodes of ruq pain return to clinic to plan elective cholecystectomy. No indication for emergency intervention Plan discussed with: Patient MARIA ALEJANDRA PARSONS MD Feb 04, 2025 09:34 E/M VISIT PERFORMED BY: TRANSCRIBED BY:MARIA ALEJANDRA PARSONS MD TRANSCRIBED DATE/TIME:02/04/25933 ELECTRONICALLY SIGNED BY:MARIA ALEJANDRA PARSONS MD 02/04/25933 ELECTRONICALLY CO-SIGNED BY: Patient: CHRISTY ASIF Acct: [id number] : 1940 Loc: [facility] Age/Sex: 84/F [id number] Progress Note - Dictate Date Seen: Feb 05, 2025 Medical Necessity Reason Pt with a Central, PICC or Fol: No vital signs Vital Sign Date Time Temp Pulse Resp B/P (MAP) Pulse Ox O2 Delivery O2 Flow Rate FiO2 02/05/25 05:00 96.8 58 17 132/71 (91) 95 96.8 02/04/25 20:00 Room Air* 0 21 Total Intake and Output 02/04/25 02/04/25 02/05/25 15:00 23:00 07:00 Intake Total 50 ml 550 ml 240 ml Output Total 400 ml 600 ml Balance 50 ml 150 ml -360 ml medications Current Medications Medications Dose Ordered Sig/Aparna Route Start Time Stop Time Status Last Admin Dose Admin Acetaminophen 650 mg Q6HP PRN PO 01/31/25 17:15 02/03/25 08:31 650 MG Ceftriaxone Sodium 50 ml @ 100 mls/hr DAILY@09 IV 01/31/25 18:00 02/04/25 08:41 100 MLS/HR Metronidazole 100 ml @ 100 mls/hr Q8HR IV 01/31/25 22:00 02/05/25 05:13 100 MLS/HR Amlodipine Besylate 5 mg DAILY PO 02/01/25 10:00 02/04/25 08:42 5 MG Aspirin 81 mg DAILY PO 02/01/25 10:00 02/04/25 08:42 81 MG Clopidogrel Bisulfate 75 mg DAILY PO 02/01/25 10:00 02/04/25 08:41 75 MG Atorvastatin Calcium 10 mg HS PO 01/31/25 22:00 02/04/25 21:16 10 MG Tamsulosin HCl 0.4 mg QPM PO 02/01/25 18:00 02/04/25 18:14 0.4 MG Acetaminophen/ Hydrocodone Bitart 1 tab Q6HP PRN PO 02/01/25 17:00 02/02/25 21:44 1 TAB Pantoprazole Sodium 40 mg DAILY IV 02/02/25 10:00 02/04/25 08:41 40 MG Empaglifozin 10 mg DAILY PO 02/02/25 10:00 02/03/25 08:31 10 MG laboratory and microbiology Laboratory Tests 02/04/25 05:54 Test 02/04/25 05:54 Range/Units Serum Glucose 97 74-106 mg/dL Assessment/Plan Patient is a 84-year-old female who originally presented to the hospital on January 31, 2025 for abdominal pain which was ongoing for 2-3 weeks before presentation. She has been cared on telemetry for. Originally assessment was possible cholecystitis. She was found to have gallstones. Later on, HIDA scan was negative and cholecystitis was not considered. Patient may have had some diverticulitis which has improved since admission. Is also found to have kidney stone which could have contributed to the clinical picture. Cardiology is involved for cardiac aspects of care on February 04, 2025. There has been no report of chest pain. Patient herself denies any chest discomfort for the past few months. Patient is known to our practice from outside and before. Patient does have history of ischemic cardiomyopathy and HFrEF. Echocardiogram of November 2024 revealed ejection fraction of 35%. During that admission to the hospital cardiac catheterization was performed and the patient was found to have closed PDA with collaterals. Last echocardiogram (performed in the office on December 28, 2024) revealed preserved left ventricular systolic function. Patient has been kept on aspirin/Plavix as outpatient. Not in acute distress. No JVD. Mucosa is pink and wet. No carotid bruit. Scattered rhonchi in the lungs is heard. Not using accessory muscles of breathing. Cardiac: Regular, no thrill/gallop. Abdomen is soft. Bowel sound is positive. No tenderness. Extremities do not reveal edema. Dorsalis pedis 2+ bilateral Past medical history includes hypertension, hyperlipidemia, coronary artery disease, H/O HFrEF, later: HFimpEF, ischemic cardiomyopathy, asthma, neuropathy, history of mild mitral valve prolapse, CKD, carpal tunnel disease, status post right hip replacement appendectomy/hysterectomy/back surgery/carpal tunnel surgery and history of lumbar stenosis. Patient is allergic to clonidine/lisinopril/losartan/valsartan/metoprolol. She is kept on aspirin/Plavix as outpatient Nuclear stress test (performed in the office) in February 2024 revealed scar. Left heart catheterization of November 22, 2024 revealed closed PDA with positive collaterals from right. Echocardiogram (performed in the office) of December 2023 had revealed preserved ejection fraction with questionable mild mitral valve prolapse and [id number] mitral regurgitation Echocardiogram of November 20, 2024 revealed ejection fraction of 35%, anterior/anterior septal/anterior apical hypokinesia, ischemic cardiomyopathy, mild MR, trace TR and right ventricular systolic pressure of 31 mm Echocardiogram of December 28, 2024 (performed in the office) revealed preserved LVEF Creatinine: 1.46 - 1.36 - 1.13 - 1.13 - 1.14 - 1.27 Potassium: 4.2 - 3.7 - 3.2 - 2.7 - 3.2 - 3.0 TSH: 2.05 Chest x-ray revealed: IMPRESSION: No acute cardiopulmonary disease. Abdomen/pelvic CT scan revealed: There is limited interpretation of the abdomen and pelvis without administration of intravenous contrast. Lung bases demonstrate atelectasis. Adrenal glands, spleen, pancreas and liver unremarkable in shape. Cholelithiasis. Kidneys demonstrate no hydronephrosis. Left renal indeterminate exophytic lesion measuring 1.7 cm. Nonobstructing left renal calculus measuring 6 mm. Right kidney demonstrates no hydronephrosis/nephrolithiasis. Stomach is partially distended. Small bowel loops normal in caliber. Duodenal diverticulum. Colonic diverticular disease. Moderate volume stool throughout the colon. No secondary signs for appendicitis. Abdominal aortic atherosclerotic disease. Bladder is contracted. No free pelvic fluid. No inguinal lymphadenopathy. Right hip arthroplasty. Moderate degenerate changes left hip. [id number] bilateral sacroiliac degenerative joint disease. Moderate to advanced thoracolumbar degenerative disc disease. Posterior decompression at L3. T10 vertebral body hemangioma measuring 2 cm. IMPRESSION: Limited evaluation without contrast. Colonic diverticular disease. Moderate volume stool in the colon. Cholelithiasis. Nonobstructing left renal calculus measuring 6 mm. Left renal indeterminate lesion measuring 1.7 cm. Recommend MRI abdomen with and without contrast to evaluate and exclude any type of solid mass/neoplasm. Atherosclerotic disease. Other findings as described. Renal ultrasound revealed: IMPRESSION: Small right kidney, mild increased echogenicity of the bilateral kidneys, most compatible with medical renal disease. 4 mm left renal nonobstructing calculus. Abdominal and MRI revealed: IMPRESSION: Cholelithiasis with mild gallbladder wall thickening and pericholecystic edema. Correlate for acute cholecystitis. Probable left renal cyst (limited examination secondary to lack of intravenous contrast administration). HIDA scan revealed: Impression: Unremarkable hepatobiliary study without evidence of acute cholecystitis. EKG on arrival reveals sinus rhythm with nonspecific ST-T changes Tele reveals sinus rhythm Patient is a 84-year-old female who originally presented with abdominal pain. Has been kept on telemetry and was managed for possible diverticulitis. Kidney stones also could have contributed to the clinical picture. Abdominal pain has improved. There has been no chest pains. Patient does have baseline history of coronary artery disease. Has been kept on aspirin/Plavix as outpatient. Does have history of HFrEF. Last echocardiogram revealed improved ejection fraction and diagnosis has changed to HFimpEF. Presentation was not considered ACS. Intractable Abdominal pain Gallstone Kidney stone Diverticulitis? Hypertension Hyperlipidemia CKD Coronary artery disease Ischemic cardiomyopathy HFimpEF Cardiac suggestion for management: Manage on telemetry Follow-up electrolytes and kidney function tests and correct abnormalities Dual antiplatelet therapy (On Aspirin/Plavix) for now Lifestyle and risk factor modifications Evaluation and management of abdominal pain as per primary team. Cardiac-maldonado is stable and can be followed as outpatient. Continuation of GDMT for history of systolic heart failure (presently HFimpEF) is suggested. Patient is allergic to Valsartan and Entrersto cannot be started. She herself mentions allergy to Lisinopril also. Further evaluation and management depends on the above and clinical course A total of 75 minutes was spent reviewing the patient record, examining the patient, making a diagnostic and therapeutic plan, discussing this plan with medical personnel, following up on diagnostic studies and following the patient for clinical stability excluding any and all procedures. At least 50% of this time was spent in direct, [id number] contact. Thank you for allowing me to participate in this patient's care. Further recommendations will depend on patient's clinical course. Please do not hesitate to contact me if you have any questions or concerns. This medical document was created using electronic medical record system with [employer] dictation system. Although this document has been carefully reviewed, there may still be some phonetic and typographical errors. These areas are purely typographical due to the imperfection of the software programs, and do not reflect any compromise in the patient's medical care. Plan discussed with: Patient, Other (nurse) Plan discussed with: Patient (patient and primary rn ) NIR DELUCA Feb 05, 2025 06:15 E/M VISIT PERFORMED BY: TRANSCRIBED BY:NIR DELUCA TRANSCRIBED DATE/TIME:02/05/2515 ELECTRONICALLY SIGNED BY:NIR DELUCA 02/05/25 1213 ELECTRONICALLY CO-SIGNED BY: Patient Name: CHRISTY ASIF Acct: [id number] Room: 0218 /Bed: B Attending Physician: ROYCE BROOKE RESIDENT Loc: [facility] Unit: [id number] CONSULTATION REPORT . ................................................................................ ............................................................................... Date of service: Feb 04, 2025 History of Present Illness HPI Patient is a 84-year-old female who originally presented to the hospital on January 31, 2025 for abdominal pain which was ongoing for 2-3 weeks before presentation. She has been cared on telemetry for. Originally assessment was possible cholecystitis. She was found to have gallstones. Later on, HIDA scan was negative and cholecystitis was not considered. Patient may have had some diverticulitis which has improved since admission. Cardiology is involved for cardiac aspects of care on February 04, 2025. There has been no report of chest pain. Patient herself denies any chest discomfort for the past few months. Patient is known to our practice from outside and before. Patient does have history of ischemic cardiomyopathy and HFrEF. Echocardiogram of November 2024 revealed ejection fraction of 35%. During that admission to the hospital cardiac catheterization was performed and the patient was found to have closed PDA with collaterals. Last echocardiogram (performed in the office on December 28, 2024) revealed preserved left ventricular systolic function. Patient has been kept on aspirin/Plavix as outpatient. Home Meds Reported Medications Montelukast Sodium (MONTELUKAST SODIUM) 10 Mg Tab, 1 TAB PO DAILY, #30 TAB 5 Refills 02/01/25 Amlodipine Besylate (Amlodipine Besylate) 5 Mg Tab, 5 MG PO DAILY for 30 Days, MG 02/01/25 Pantoprazole Sodium Sesquihydr (Protonix) 40 Mg Tab, 20 MG PO DAILY, #30 TAB 02/01/25 Alendronate Sodium (Alendronate Sodium) 70 Mg Tab, 1 TAB PO QWEEKLY, #4 TAB 3 Refills 02/01/25 Fluticasone-Salmeterol (Advair Diskus 250/50) 1 Puff Ih, 1 PUFF INH BID, #3 INHALER 3 Refills 02/01/25 Prasugrel HCl (Prasugrel) 10 Mg Tab, 10 MG PO DAILY, TAB 25 Atorvastatin Calcium (ATORVASTATIN CALCIUM) 20 Mg Tab, 1 TAB PO DAILY, #30 TAB 5 Refills 02/01/25 Cetirizine HCl (Cetirizine Hydrochloride) 10 Mg Tab, 1 TAB PO DAILY for 21 Days, #21 11/22/24 Amoxicillin & Pot Clavulanate (Amoxicillin/Potassium Cla) 875 Mg Tab, 1 TAB PO BID for 10 Days, #20 11/22/24 Alendronate Sodium (Alendronate Sodium) 35 Mg Tab, 1 TAB PO QWEEKLY for 90 Days, #12 11/22/24 Pantoprazole Sodium Sesquihydr (Pantoprazole Sodium Dr) 40 Mg Tab, 20 MG PO DAILY for 30 Days, #30 11/22/24 Pravastatin Sodium (PRAVACHOL TABLET) 20 Mg Tb, 40 MG PO DAILY for 30 Days, #30 11/22/24 Hydrocodone-Acetaminophen (Hydrocodone Bitartrate/AC 10-325 mg) 1 Tab Tab, 1 TAB PO TID for 30 Days, #90 11/22/24 Amlodipine Besylate (Amlodipine Besylate) 5 Mg Tab, 1 TAB PO DAILY for 30 Days, #30 11/22/24 Hydrochlorothiazide W/Triamter (Triamterene/Hydrochloroth) 1 Cap Cap, 1 CAP PO DAILY for 30 Days, #30 [TRIAMTERENE-HCTZ 75/50 MG] 11/22/24 Oxybutynin Chloride (Oxybutynin Chloride) 5 Mg Tab, 10 MG PO DAILY for 30 Days, #30 [OXYBUTYNIN CL ER 10 MG TABLET] 11/22/24 Duloxetine Hydrochloride (Duloxetine Hydrochloride) 30 Mg Cap, 1 CAP PO DAILY for 30 Days, #30 11/22/24 Montelukast Sodium (MONTELUKAST SODIUM) 10 Mg Tab, 1 TAB PO DAILY for 30 Days, #30 11/22/24 Past Medical History Others Past medical history includes hypertension, hyperlipidemia, coronary artery disease, H/O HFrEF, later: HFimpEF, ischemic cardiomyopathy, asthma, neuropathy, history of mild mitral valve prolapse, CKD, carpal tunnel disease, status post right hip replacement appendectomy/hysterectomy/back surgery/carpal tunnel surgery and history of lumbar stenosis. Patient is allergic to clonidine/lisinopril/losartan/valsartan/metoprolol. She is kept on aspirin/Plavix as outpatient Patient Family History: Hypertension Smoker: No Hx (Negative) Alocohol: None Drugs: None Lives with: With family Review of Systems Constitutional: No symptom reported Ears, Nose, & Throat: No symptom reported Eyes: No symptom reported Cardiovascular: No symptom reported Gastrointestinal: Abdominal Pain H&P Exam Vital Signs Vital Signs Date Time Temp Pulse Resp B/P (MAP) Pulse Ox O2 Delivery O2 Flow Rate FiO2 02/04/25 09:00 97.5 56 16 153/73 (99) 97 97.5 02/03/25 20:00 Room Air* 0 21 General Appeara: Well developed Head Exam: Normal inspection Eye Exam: bilateral eye PERRL Pulmonary/Respiratory: Normal inspection Cardiovascular/Chest: Normal inspection, Regular rate Peripheral Pulses: 2+ carotid (R), 2+ carotid (L), 2+ femoral (R), 2+ femoral (L) Abdominal Exam: Normal bowel sounds, Soft Neuro/Mental St: Alert, Oriented Appearance: Appropriate appearance Eye contact/ Speech: Cooperative Labs/Xrays Labs Test 02/04/25 05:54 02/03/25 14:49 02/02/25 09:33 02/02/25 04:35 Range/Units White Blood Count 5.2 4.4-10.8 10^3/uL Red Blood Count 4.33 4.0-5.20 10^6/uL Hemoglobin 13.1 12.2-16.2 g/dL Hematocrit 38.1 36.0-46.0 % Mean Corpuscular Volume 88.0 80.0-100.0 fL Mean Corpuscular Hemoglobin 30.2 28.0-32.0 pg Mean Corpuscular Hemoglobin Concent 34.3 32.0-36.0 g/dL Red Cell Distribution Width 13.6 11.8-14.3 % Platelet Count 194 140-450 10^3/uL Mean Platelet Volume 7.5 6.9-10.8 fL Neutrophils (%) (Auto) 58.3 37.0-80.0 % Lymphocytes (%) (Auto) 26.9 10.0-50.0 % Monocytes (%) (Auto) 10.3 0.0-12.0 % Eosinophils (%) (Auto) 4.1 0.0-7.0 % Basophils (%) (Auto) 0.4 0.0-2.0 % Neutrophils # (Auto) 3.0 1.6-8.6 10 ^3/uL Lymphocytes # (Auto) 1.4 0.4-5.4 10 ^3/uL Monocytes # (Auto) 0.5 0-1.3 10 ^3/uL Eosinophils # (Auto) 0.2 0-0.8 10 ^3/uL Basophils # (Auto) 0 0-0.2 10 ^3/uL Nucleated Red Blood Cells 0.0 % Sodium Level 142 136-145 mmol/L Potassium Level 3.2 L 3.5-5.1 mmol/L Chloride Level 105 98-107 mmol/L Carbon Dioxide Level 25 20-31 mmol/L Anion Gap 12 5-15 Blood Urea Nitrogen 7 L 9-23 mg/dL Creatinine 1.14 H 0.550-1.02 mg/dL Glomerular Filtration Rate Calc 48 >90 mL/min BUN/Creatinine Ratio 6.1 L 10.0-20.0 Serum Glucose 97 74-106 mg/dL Calcium Level 9.4 8.7-10.4 mg/dL Magnesium Level 1.7 1.6-2.6 mg/dL Stool for White Cells None seen Prothrombin Time 10.9 9.3-11.8 sec Prothrombin Time INR 1.03 0.9-1.15 Activated Partial Thromboplast Time 26.5 24.5-34.5 SEC Phosphorus Level 3.5 2.4-5.1 mg/dL Vitamin B12 Level 213 211-911 pg/mL Vitamin D 25-Hydroxy 45.9 30.0-100 ng/mL Thyroid Stimulating Hormone (TSH) 2.05 0.55-4.78 uIU/mL Test 02/01/25 12:16 02/01/25 05:22 01/31/25 14:44 Range/Units Urine Color Colorless Yellow Urine Clarity Clear Clear Urine pH 7.0 5.0-9.0 Urine Specific [place] 1.008 1.001-1.035 Urine Protein Negative Negative Urine Ketones Negative Negative Urine Blood Negative Negative /uL Urine Nitrite Negative Negative Urine Bilirubin Negative Negative Urine Urobilinogen Normal Negative mg/dL Urine Leukocyte Esterase Negative Negative /uL Urine RBC <1 0 - 4 /hpf Urine Microscopic WBC < 1 0-5 /HPF Urine Squamous Epithelial Cells None seen <5 /hpf Urine Bacteria None seen None Seen /hpf Urine Glucose Normal Normal mg/dL Total Bilirubin 0.6 0.2-1.0 mg/dL Aspartate Amino Transferase (AST) 19 13-40 U/L Alanine Aminotransferase (ALT) 14 7-40 U/L Alkaline Phosphatase 82 46-116 U/L Total Protein 6.1 5.7-8.2 g/dL Albumin 4.0 3.2-4.8 g/dL Hemoglobin A1c 5.4 <5.7 % A1C Lipase 39 12-53 U/L Microbiology Date/Time Source Procedure Growth Status 02/01/25 12:16 Voided Urine Urine Culture - Final Complete Assessment/Plan Plan Patient is a 84-year-old female who originally presented to the hospital on January 31, 2025 for abdominal pain which was ongoing for 2-3 weeks before presentation. She has been cared on telemetry for. Originally assessment was possible cholecystitis. She was found to have gallstones. Later on, HIDA scan was negative and cholecystitis was not considered. Patient may have had some diverticulitis which has improved since admission. Is also found to have kidney stone which could have contributed to the clinical picture. Cardiology is involved for cardiac aspects of care on February 04, 2025. There has been no report of chest pain. Patient herself denies any chest discomfort for the past few months. Patient is known to our practice from outside and before. Patient does have history of ischemic cardiomyopathy and HFrEF. Echocardiogram of November 2024 revealed ejection fraction of 35%. During that admission to the hospital cardiac catheterization was performed and the patient was found to have closed PDA with collaterals. Last echocardiogram (performed in the office on December 28, 2024) revealed preserved left ventricular systolic function. Patient has been kept on aspirin/Plavix as outpatient. Not in acute distress. No JVD. Mucosa is pink and wet. No carotid bruit. Scattered rhonchi in the lungs is heard. Not using accessory muscles of breathing. Cardiac: Regular, no thrill/gallop. Abdomen is soft. Bowel sound is positive. No tenderness. Extremities do not reveal edema. Dorsalis pedis 2+ bilateral Past medical history includes hypertension, hyperlipidemia, coronary artery disease, H/O HFrEF, later: HFimpEF, ischemic cardiomyopathy, asthma, neuropathy, history of mild mitral valve prolapse, CKD, carpal tunnel disease, status post right hip replacement appendectomy/hysterectomy/back surgery/carpal tunnel surgery and history of lumbar stenosis. Patient is allergic to clonidine/lisinopril/losartan/valsartan/metoprolol. She is kept on aspirin/Plavix as outpatient Nuclear stress test (performed in the office) in February 2024 revealed scar. Left heart catheterization of November 22, 2024 revealed closed PDA with positive collaterals from right. Echocardiogram (performed in the office) of December 2023 had revealed preserved ejection fraction with questionable mild mitral valve prolapse and gdkb-rb-qaylasbp mitral regurgitation Echocardiogram of November 20, 2024 revealed ejection fraction of 35%, anterior/anterior septal/anterior apical hypokinesia, ischemic cardiomyopathy, mild MR, trace TR and right ventricular systolic pressure of 31 mm Echocardiogram of December 28, 2024 (performed in the office) revealed preserved LVEF Creatinine: 1.46 - 1.36 - 1.13 - 1.13 - 1.14 Potassium: 4.2 - 3.7 - 3.2 - 2.7 - 3.2 TSH: 2.05 Chest x-ray revealed: IMPRESSION: No acute cardiopulmonary disease. Abdomen/pelvic CT scan revealed: There is limited interpretation of the abdomen and pelvis without administration of intravenous contrast. Lung bases demonstrate atelectasis. Adrenal glands, spleen, pancreas and liver unremarkable in shape. Cholelithiasis. Kidneys demonstrate no hydronephrosis. Left renal indeterminate exophytic lesion measuring 1.7 cm. Nonobstructing left renal calculus measuring 6 mm. Right kidney demonstrates no hydronephrosis/nephrolithiasis. Stomach is partially distended. Small bowel loops normal in caliber. Duodenal diverticulum. Colonic diverticular disease. Moderate volume stool throughout the colon. No secondary signs for appendicitis. Abdominal aortic atherosclerotic disease. Bladder is contracted. No free pelvic fluid. No inguinal lymphadenopathy. Right hip arthroplasty. Moderate degenerate changes left hip. Ovxc-jf-puvifwvk bilateral sacroiliac degenerative joint disease. Moderate to advanced thoracolumbar degenerative disc disease. Posterior decompression at L3. T10 vertebral body hemangioma measuring 2 cm. IMPRESSION: Limited evaluation without contrast. Colonic diverticular disease. Moderate volume stool in the colon. Cholelithiasis. Nonobstructing left renal calculus measuring 6 mm. Left renal indeterminate lesion measuring 1.7 cm. Recommend MRI abdomen with and without contrast to evaluate and exclude any type of solid mass/neoplasm. Atherosclerotic disease. Other findings as described. Renal ultrasound revealed: IMPRESSION: Small right kidney, mild increased echogenicity of the bilateral kidneys, most compatible with medical renal disease. 4 mm left renal nonobstructing calculus. Abdominal and MRI revealed: IMPRESSION: Cholelithiasis with mild gallbladder wall thickening and pericholecystic edema. Correlate for acute cholecystitis. Probable left renal cyst (limited examination secondary to lack of intravenous contrast administration). HIDA scan revealed: Impression: Unremarkable hepatobiliary study without evidence of acute cholecystitis. EKG on arrival reveals sinus rhythm with nonspecific ST-T changes Tele reveals sinus rhythm Patient is a 84-year-old female who originally presented with abdominal pain. Has been kept on telemetry and was managed for possible diverticulitis. Kidney stones also could have contributed to the clinical picture. Abdominal pain has improved. There has been no chest pains. Patient does have baseline history of coronary artery disease. Has been kept on aspirin/Plavix as outpatient. Does have history of HFrEF. Last echocardiogram revealed improved ejection fraction and diagnosis has changed to HFimpEF. Presentation was not considered ACS. Intractable Abdominal pain Gallstone Kidney stone Diverticulitis? Hypertension Hyperlipidemia CKD Coronary artery disease Ischemic cardiomyopathy HFimpEF Cardiac suggestion for management: Manage on telemetry Follow-up electrolytes and kidney function tests and correct abnormalities Dual antiplatelet therapy (On Aspirin/Plavix) for now Lifestyle and risk factor modifications Evaluation and management of abdominal pain as per primary team. Cardiac-maldonado is stable and can be followed as outpatient. Continuation of GDMT for history of systolic heart failure (presently HFimpEF) is suggested. Patient is allergic to Valsartan and Entrersto cannot be started. She herself mentions allergy to Lisinopril also. Further evaluation and management depends on the above and clinical course A total of 75 minutes was spent reviewing the patient record, examining the patient, making a diagnostic and therapeutic plan, discussing this plan with medical personnel, following up on diagnostic studies and following the patient for clinical stability excluding any and all procedures. At least 50% of this time was spent in direct, lbsh-hw-bfij contact. Thank you for allowing me to participate in this patient's care. Further recommendations will depend on patient's clinical course. Please do not hesitate to contact me if you have any questions or concerns. This medical document was created using electronic medical record system with [employer] dictation system. Although this document has been carefully reviewed, there may still be some phonetic and typographical errors. These areas are purely typographical due to the imperfection of the software programs, and do not reflect any compromise in the patient's medical care. Plan discussed with: Patient, Other (nurse) GAMA FERRO MD Feb 04, 2025 10:26 DICTATED BY:GAMA FERRO MD DICTATED DATE/TIME:02/04/25 1026 ELECTRONICALLY SIGNED BY:GAMA FERRO MD 02/04/25 102 ELECTRONICALLY CO-SIGNED BY: Operations or Procedures [place] [id number] Ph: [phone] DIAGNOSTIC IMAGING Diagnostic Imaging Report : [id number] Signed PATIENT: CHRISTY ASIF MACCT: [id number] UNIT: [id number] : 1940 LOC: CENTRAL ROOM / BED: [facility] / A AGE / SEX: 84 / F ADM STATUS: ADM IN SERVICE 1110 ORDERING PHYSICIAN: EVA ROBLES PROCEDURE(s): GBNM - NM HIDA SCAN REASON: cholecystitis ORDER NUMBER(s): [id number], ACCESSION NUMBER(s): [id number] Procedure: NM NM HIDA SCAN Exam Date: 02/02/2025 12:04 PM Clinical History: cholecystitis Comparison Study: None Nuclear Medicine Hepatobiliary Scan. Technique: Following the intravenous administration of 6 mCi of technetium 99m labeled Choletec multiple planar abdominal planar images were obtained in anterior projection in 5 minute intervals for 30 minutes . Right lateral images were obtained at 30 minutes after injection. Findings: The liver appears grossly normal in size. There is no abnormal persistence of the cardiac or blood pool activity. There is prompt visualization of the gallbladder and excretion of activity into the small bowel. Impression: Unremarkable hepatobiliary study without evidence of acute cholecystitis. ATED BY: JOSE MANUEL BENEDICT MD DICTATED DATE/TIME: 02/02/25 1349 SIGNED BY: JOSE MANUEL BENEDICT MD SIGNED DATE/TIME: 02/02/25 1349 CC: [place] [id number] Ph: [phone] DIAGNOSTIC IMAGING Diagnostic Imaging Report : [id number] Signed PATIENT: CHRISTY ASIF MACCT: [id number] UNIT: [id number] : 1940 LOC: CENTRAL ROOM / BED: [facility] / A AGE / SEX: 84 / F ADM STATUS: ADM IN SERVICE 1136 ORDERING PHYSICIAN: EVA ROBLES RESIDENT PROCEDURE(s): MABL - MRI ABDOMEN NO CONTRAST REASON: Renal mass ORDER NUMBER(s): [id number], ACCESSION NUMBER(s): [id number] MRI Abdomen, without IV Contrast Exam Date: 02/01/2025 12:29 PM Comparison: CT CT AB PEL WO CON-NO ORAL OR IV on DOS: 01/31/25 History: Renal mass Technique: Multisequence multiplanar MRI images were obtained of the abomen. Findings: Liver: The liver is normal in size without focal lesions. Normal liver contour. Spleen: Unremarkable. Pancreas: The pancreas is normal in appearance without focal lesions. Gallbladder and ducts: Cholelithiasis. Mild gallbladder wall thickening and mild pericholecystic edema. The cystic duct, right and left hepatic ducts, common hepatic duct, and common bile ducts are unremarkable. The pancreatic duct is within normal limits. Adrenal glands: Unremarkable. Kidneys: Few punctate bilateral renal cysts. 1.4 cm T2 hyperintense probable cyst in the left midpole posterior kidney. This corresponds to lesion in question on CT dated 01/31/2025. No hydronephrosis. Visualized bowel: Grossly unremarkable. Vasculature: Unremarkable. Lymphadenopathy: No evidence for lymphadenopathy. Ascites: Absent. Musculoskeletal: Bone marrow signal is normal. IMPRESSION: Cholelithiasis with mild gallbladder wall thickening and pericholecystic edema. Correlate for acute cholecystitis. Probable left renal cyst (limited examination secondary to lack of intravenous contrast administration). ATED BY: JOSE MANUEL BENEDICT MD DICTATED DATE/TIME: 02/01/25 1350 SIGNED BY: JOSE MANUEL BENEDICT MD SIGNED DATE/TIME: 02/01/25 1350 CC: [place] [id number] Ph: [phone] DIAGNOSTIC IMAGING Diagnostic Imaging Report : [id number] Signed PATIENT: CHRISTY ASIF MACCT: [id number] UNIT: [id number] : 1940 LOC: CENTRAL ROOM / BED: [facility] / A AGE / SEX: 84 / F ADM STATUS: ADM IN SERVICE 1001 ORDERING PHYSICIAN: EVA ROBLES PROCEDURE(s): KIDUS - KIDNEY REASON: GRAY, nephrolithiasis ORDER NUMBER(s): [id number], ACCESSION NUMBER(s): [id number] CLINICAL HISTORY: GRAY, nephrolithiasis TECHNIQUE: Complete ultrasound exam of the kidneys and bladder was performed. COMPARISON: None FINDINGS: The right kidney has mildly increased echogenicity and measures 8 cm. There is no focal parenchymal abnormality or evidence for stone. There is no hydronephrosis. The left kidney has mildly increased echogenicity and measures 8.7 cm. There is a 1.7 cm cyst. There is a 4 mm nonobstructing renal calculus. There is no hydronephrosis. The bladder is grossly unremarkable. IMPRESSION: Small right kidney, mild increased echogenicity of the bilateral kidneys, most compatible with medical renal disease. 4 mm left renal nonobstructing calculus. ATED BY: CINDI LEUNG MD DICTATED DATE/TIME: 02/01/25 105 SIGNED BY: CINDI LEUNG MD SIGNED DATE/TIME: 02/01/25 105 CC: [place] [id number] Ph: [phone] DIAGNOSTIC IMAGING Diagnostic Imaging Report : [id number] Signed PATIENT: CHRISTY ASIF MACCT: [id number] UNIT: [id number] : 1940 LOC: CENTRAL ROOM / BED: [facility] A AGE / SEX: 84 / F ADM STATUS: ADM IN SERVICE 1001 ORDERING PHYSICIAN: EVA ROBLES PROCEDURE(s): CXR1 - CHEST XRAY 1 VIEW REASON: CHF ORDER NUMBER(s): [id number], ACCESSION NUMBER(s): [id number] CHEST RADIOGRAPH Indication: CHF Technique: Single frontal view of the chest was obtained Comparison: XY CHEST TWO VIEWS ROUTINE on DOS: 11/19/24 FINDINGS: Lines and Tubes: None Lungs: No focal consolidation. Pleura: No effusion. No pneumothorax. Cardiomediastinal contours: Unremarkable Bones: No acute osseous abnormality. IMPRESSION: No acute cardiopulmonary disease. ATED BY: BRIDGET CHRISTIANSEN MD DICTATED DATE/TIME: 02/01/251056 SIGNED BY: BRIDGET CHRISTIANSEN MD SIGNED DATE/TIME: 02/01/251056 CC: [place] [id number] Ph: [phone] DIAGNOSTIC IMAGING Diagnostic Imaging Report : [id number] Signed PATIENT: RAY ASIFCCT: [id number] UNIT: [id number] : 1940 LOC: ER ROOM / BED: / AGE / SEX: 84 / F ADM STATUS: REG ER SERVICE 26 ORDERING PHYSICIAN: ALFONSO CEBALLOS MD PROCEDURE(s): ABPL - CT AB PEL WO CON-NO ORAL OR IV REASON: pain ORDER NUMBER(s): [id number], ACCESSION NUMBER(s): [id number] Indication: pain Technique: CT axial images of the abdomen and pelvis are obtained without contrast. Coronal and sagittal reformats were obtained. Radiation Dose Information: CTDI volume is 9.03 mGy. Dose-length product is 402.5 mGy*cm Comparison: None FINDINGS: There is limited interpretation of the abdomen and pelvis without administration of intravenous contrast. Lung bases demonstrate atelectasis. Adrenal glands, spleen, pancreas and liver unremarkable in shape. Cholelithiasis. Kidneys demonstrate no hydronephrosis. Left renal indeterminate exophytic lesion measuring 1.7 cm. Nonobstructing left renal calculus measuring 6 mm. Right kidney demonstrates no hydronephrosis/nephrolithiasis. Stomach is partially distended. Small bowel loops normal in caliber. Duodenal diverticulum. Colonic diverticular disease. Moderate volume stool throughout the colon. No secondary signs for appendicitis. Abdominal aortic atherosclerotic disease. Bladder is contracted. No free pelvic fluid. No inguinal lymphadenopathy. Right hip arthroplasty. Moderate degenerate changes left hip. Hkuy-ck-wutovmdq bilateral sacroiliac degenerative joint disease. Moderate to advanced thoracolumbar degenerative disc disease. Posterior decompression at L3. T10 vertebral body hemangioma measuring 2 cm. IMPRESSION: Limited evaluation without contrast. Colonic diverticular disease. Moderate volume stool in the colon. Cholelithiasis. Nonobstructing left renal calculus measuring 6 mm. Left renal indeterminate lesion measuring 1.7 cm. Recommend MRI abdomen with and without contrast to evaluate and exclude any type of solid mass/neoplasm. Atherosclerotic disease. Other findings as described. ATED BY: NAGA HERNANDEZ MD DICTATED DATE/TIME: 01/31/25 1539 SIGNED BY: NAGA HERNANDEZ MD SIGNED DATE/TIME: 01/31/251538 CC: Condition at Discharge: Stable Final Diagnosis/Problems List #Asymptomatic Cholelithiasis #Colonic diverticular disease #Diverticulosis without todd diverticulitis #Constipation #Acute cholecystitis, ruled out #possible Clostridioides difficile infection #Probable left renal cyst #Nonobstructing left renal calculus #Coronary artery disease - status post angiogram ([employer] of PDA) on dual antiplatelet therapy #Mitral valve prolapse #Hypertension #GRAY due to VMN #Mixed dyslipidemia #Type 2 diabetes mellitus, controlled #Hypomagnesemia #Hypokalemia Discharge Disposition: Home Discharge Instruct/Medications Diet: Consistent carbohydrate, Cardiac 2g Na,low cholest, Renal Activity: Light activity Follow Up/Referral: DC clinic PCP Surgery Medications: As prescribed Scheduled Alendronate Sodium (Alendronate Sodium), 1 TAB PO QWEEKLY, (Reported) Alendronate Sodium (Alendronate Sodium), 1 TAB PO QWEEKLY, (Reported) Amlodipine Besylate (Amlodipine Besylate), 1 TAB PO DAILY, (Reported) Amlodipine Besylate (Amlodipine Besylate), 5 MG PO DAILY, (Reported) Amoxicillin & Pot Clavulanate (Amoxicillin/Potassium Cla), 1 TAB PO BID, (Reported) Atorvastatin Calcium (Atorvastatin Calcium), 1 TAB PO DAILY, (Reported) Cephalexin (Keflex Capsule), 1 CAP PO QID Cetirizine HCl (Cetirizine Hydrochloride), 1 TAB PO DAILY, (Reported) Duloxetine Hydrochloride (Duloxetine Hydrochloride), 1 CAP PO DAILY, (Reported) Fluticasone-Salmeterol (Advair Diskus 250/50), 1 PUFF INH BID, (Reported) Hydrochlorothiazide W/Triamter (Triamterene/Hydrochloroth), 1 CAP PO DAILY, (Reported) Hydrocodone-Acetaminophen (Hydrocodone Bitartrate/AC 10-325 mg), 1 TAB PO TID, (Reported) Metronidazole (Flagyl), 1 TAB PO TID Montelukast Sodium (Montelukast Sodium), 1 TAB PO DAILY, (Reported) Montelukast Sodium (Montelukast Sodium), 1 TAB PO DAILY, (Reported) Oxybutynin Chloride (Oxybutynin Chloride), 10 MG PO DAILY, (Reported) Pantoprazole Sodium Sesquihydr (Pantoprazole Sodium Dr), 20 MG PO DAILY, (Reported) Pantoprazole Sodium Sesquihydr (Protonix), 20 MG PO DAILY, (Reported) Prasugrel HCl (Prasugrel), 10 MG PO DAILY, (Reported) Pravastatin Sodium (Pravachol Tablet), 40 MG PO DAILY, (Reported) Discharge Statement: "Patient was advised to return to the ER or call 911 if any headaches, dizziness, shortness of breath, chest pain, abdominal pain, bleeding, fevers, or worsening of medical condition. Patient was counseled about treatment plan, medications, possible side effects, patientverbalized understanding. All questions were answered to the best of my ability. This discharge took greater then 30 minutes in planning, reviewing documentation, counseling the patient, and discussing with other team members." ASSESSMENT ASSESSMENT Assessment Visit Coding STANDARD RES Billing Provider: MIKE ALARCON MD Date of Service if different f: Feb 05, 2025 Common Visit Codes: 94509-GZS/OBS DISCH DAY >30min ROSEANNA EASTON RESIDENT Feb 05, 2025 13:09
[2025-02-05] MEDS ORDERED: CEPH250C PO (13:14)
[2025-02-05] MEDS ORDERED: METR-344 PO (13:14)
[2025-02-05 13:54] VITALS: BP 151/69; PULSE 63; RESP 17; TEMP 98; O2SAT 96
--- NOTE | 2025-02-08 08:19 | ECG ---
[facility] Test Date: 2025-02-01 Test Time: 19:10:20 Pat Name: CHRISTY ASIF Department: Room: 0218 B Gender: F Jingle Writer: benny : 1940 Requested By: ROYCE YOU Order Number: [id number] Reading MD: Rober Hudson Measurements Intervals Reese Rate: 60 P: 63 TX: 176 QRS: 40 QRSD: 105 T: 89 QT: 494 QTc: 494 Interpretive Statements Sinus rhythm Probable anteroseptal infarct, recent Minimal ST elevation, inferior leads Electronically Signed On 02-10-2025 18:14:15 PST by Rober Hudson Please click the below link to view image of tracing.
== END 2025-02-05 16:07 | disposition home or self-care (01) | DRG 444 ==
LOC: ER 14:06 → OVERFLOW 17:15 → CENTRAL 22:26
PROVIDERS: ADMIT Internal Medicine Geriatric Medicine; ATTEND Internal Medicine Geriatric Medicine
DX: K80.20 Calculus of gallbladder without cholecystitis without obstruction (principal); N17.0 Acute kidney failure with tubular necrosis; I50.42 Chronic combined systolic (congestive) and diastolic (congestive) heart failure; E11.22 Type 2 diabetes mellitus with diabetic chronic kidney disease; E78.2 Mixed hyperlipidemia; E11.40 Type 2 diabetes mellitus with diabetic neuropathy, unspecified; B96.89 Other specified bacterial agents as the cause of diseases classified elsewhere; K57.32 Diverticulitis of large intestine without perforation or abscess without bleeding; Z79.02 Long term (current) use of antithrombotics/antiplatelets; I13.0 Hypertensive heart and chronic kidney disease with heart failure and stage 1 through stage 4 chronic kidney disease, or unspecified chronic kidney disease; N18.9 Chronic kidney disease, unspecified; J45.909 Unspecified asthma, uncomplicated; I34.1 Nonrheumatic mitral (valve) prolapse; I25.10 Atherosclerotic heart disease of native coronary artery without angina pectoris; N20.0 Calculus of kidney; N28.89 Other specified disorders of kidney and ureter; N28.1 Cyst of kidney, acquired; M46.1 Sacroiliitis, not elsewhere classified; E87.6 Hypokalemia; E83.42 Hypomagnesemia; I25.5 Ischemic cardiomyopathy; Z96.641 Presence of right artificial hip joint; K59.00 Constipation, unspecified; K57.10 Diverticulosis of small intestine without perforation or abscess without bleeding; Z79.51 Long term (current) use of inhaled steroids; Z79.899 Other long term (current) drug therapy; Z82.49 Family history of ischemic heart disease and other diseases of the circulatory system; Z87.891 Personal history of nicotine dependence; Z88.8 Allergy status to other drugs, medicaments and biological substances; Z90.49 Acquired absence of other specified parts of digestive tract; Z90.710 Acquired absence of both cervix and uterus; Z88.1 Allergy status to other antibiotic agents
CPT/HCPCS: 36415; 71045; 74176; 74181; 76775; 78226; 80048; 80053; 81001; 82306; 82607; 83036; 83690; 83735; 84100; 84132; 84443; 85025; 85048; 85610; 85730; 87086; 93005; G0378; J2470; J3480; J3490